=== PATIENT | male | born 1965 | race Caucasian/White ===

== ENCOUNTER → 2017-12-27 12:46 | Outpatient (CLI) | payer OTHER, SELFPAY ==
--- NOTE | 2017-12-27 12:56 | PCM.CR.ITP ---
Exercise - Initial Assessment - Visit Date of Eval: 12/27/17 - Stages of Change Stages of Change:: Contemplate - Exercise Prescription Mode:: Treadmill, Biodyne, Airdyne, NuStep, Arm Ergometer - Angina with exercise?: No - Hypertension Do any of the following apply?: Yes Resting Blood Pressure:: 160/90 - Education Goals:: Warm-up, RPE ISABELL Scale, S/S, Safe Exercise, Self-Monitoring - Exercise Program Goals Exercise Program Goals: Aerobic Activity >30 min, B/P <140/90 Nutrition - Initial Assessment - Program Goals Nutrition Program Goals: LDL <70. Total Cholesterol <200. HDL >45. Triglycerides <150. HgbA1C <7%. BMI <25 - Visit Date of Assessment:: 12/27/17 - Stages of Change Stages of Change:: Contemplate - Diabetes Diabetes:: No Insulin: No Non-Insulin Dependent?: No Do you monitor your blood sugar at home?: No - Weight Management Height: 1.73 m Weight:: 87.997 kg Total Score:: 2 - Intervention Referral to dietitian:: No Referral to Diabetic Clinic:: No Will attend diet classes:: Yes - Education Gave educational materials for:: Signs & symptoms of hypoglycemia, Signs & symptoms of hyperglycemia, Relate diabetes to coronary artery disease, Healthy eating Tobacco - Initial Assessment - Program Goals Tobacco Program Goals: Complete smoking cessation. Attend education classes. Improve Knowledge Test score - Stage of Change Stages of Change:: Contemplate - Learning Barriers Learning Barriers: Hearing, Vision Total Score:: 8 - Family Support Do you have family support?: Yes - Tobacco Use Tobacco Use: Non-smoker Do you use smokeless tobacco?: No - Intervention Smoking Cessation Referral:: No Individual Education/Counseling:: No Education Schedule Given:: Yes - Education Gave educational material for:: Tobacco triggers, Coronary artery disease, Risk factors, Sexuality, Medical compliance, Cardiac A&P, Angina signs & symptoms Psychosocial - Initial Assess - Target Goals Target Goals: Assess presence or absence of depression. Using a valid screening tool, maximizes coping skills. Positive support system - Stages of Change Stages of Change:: Contemplate - Psychosocial Test Tool Used:: HANDS Depression Questionnaire Tests Completed: SF - 36 survey completed, Mood Scale Test Total Mood Screening Score:: 0 Self-Efficacy Score:: 10 - Intervention PS - Interventions: Yes Attend Stress Management Classes, Yes Uses Stress Management Skills, No Referral to Mental Health, No Referral to [facility] Case Management, No Referral to Physician - Education Gave educational materials for:: Coping techniques, Signs & symptoms of depression, Stress management, Relaxation techniques - Assistive Devices Assistive Devices:: None Fall Risk Assessed:: Yes Patient Health Questionnaire Initial Assessment 1. Little interest or pleasure in doing things: Not at all 2. Feeling down, depressed, or hopeless: Not at all 3. Trouble falling or staying asleep, or sleeping too much: Not at all 4. Feeling tired or having little energy: Not at all 5. Poor appetite or overeating: Not at all 6. Feeling bad about yourself -- or that you are a failure or have let yourself or your family down: Not at all 7. Trouble concentrating on things, such as reading the newspaper or watching television: Not at all 8. Moving or speaking so slowly that other people could have noticed. Or the opposite - being so fidgety or restless that you have been moving around a lot more than usual: Not at all 9. Thoughts that you would be better off , or of hurting yourself in some way: Not at all How difficult have these problems made it for you to do your work, take care of things at home, or get along with other people?: Not difficult at all Total Score: 0 Knowledge Test - Check your knowledge Initial The #1 cause of in the [place] each year is:: Heart disease Which of the following is a common treatment for heart disease?: All of the above The arteries that feed the heart are called:: Coronary arteries HDL cholesterol is known as the good cholesterol.: True What disease increases your risk for heart disease?: Pneumonia What food product raises blood cholesterol level the most?: Saturated fat The bad cholesterol in the blood is called:: LDL Hypertension is another word for:: High blood pressure A blood pressure reading of 148/88 is considered normal.: False Exercise will only benefit your health when your heart rate reaches a target level.: True Total Score:: 8 Self-Efficacy Initial Assessment We would like to know how confident you are in doing certain activities. Please select your confidence level for:: Select your confidence level for the following using the scale 1-10 where 1 is not at all confident and 10 is totally confident. Your score is the average of all 6 responses. Fatigue: How confident are you that you can keep the fatigue caused by your disease from interfering with the things you want to do? Select Number: 10 Physical Discomfort or Pain: How confident are you that you can keep the physical discomfort or pain of your disease from interfering with the things you want to do? Select Number: 10 Emotional Distress: How confident are you that you can keep the emotional distress caused by your disease from interfering with the things you want to do? Select Number: 10 Other Symptoms or Health Problems: How confident are you that you can keep other symptoms or health problems from interfering with the things you want to do? Select Number: 10 Different Tasks and Activities: How confident are you that you can do the different tasks and activities needed to manage your health condition so as to reduce your need to see a doctor? Select Number: 10 Medication: How confident are you that you can do things other than just taking medication to reduce how much your illness affects your everyday life? Select Number: 10 Total Score:: 10 Nutrition Survey - Nutrition Survey Instructions Scoring Instructions: Scoring is as follows: Yes = 1 points. No = 0 point. Patient score that is >/=12 is considered to be at potential nutritional risk and could benefit from a referral to a registered dietitian. - Nutrition Survey Initial Have you lost >10 lbs over the past 2 months without trying?: Yes Are you following a special diet at home for diabetes, low fat, or low salt?: Yes Are you interested in meeting with a dietitian for help understanding your diet?: No Do you eat less than 3 meals a day?: No Do you eat fatty meats (lara, sausage, ribs, etc), fried foods, desserts, large amounts of salad dressings, margarine, butter, or cheese most days?: No Do you have food allergies? [Enter types in comment field]: No Do you eat in restaurants more than 3 times a week?: No Do you season food with salt, seasoning salt, or garlic salt?: No Do you used canned, boxed, frozen meals, or soups, seasoning packets?: No Total Score:: 2 Cardiac Rehabilitation Goals - Cardiac Rehab Goals Cardiac Rehabilitation Goals: 1. Maintain the individual as the primary focus of care. 2. To improve the patient's quality of life. 3. Identification of cardiac risk factors and provide cardiac risk factor management. 4. Enhance the psychosocial status of the patient. 5. Reconditioning enough to allow the patient to resume customary activities. 6. Control symptoms of cardiac disease - Scale Scale for measuring improvement of personal goals: Enter appropriate number in Comments. 2 = Unchanged. 3 = Slightly Better. 4 = Moderate Improvement. 5 = Met my Goal Initial Assessment Personal Goals: 30-day Re-assessment: Improve energy level, Participate in home exercise program, Get back to work, or to resume activities faster, Improve knowledge of cardiac disease, Improve muscle strength and endurance, Improve diet and eating habits (eat healthier), Control risk factors (learn risk factor modification)
--- NOTE | 2017-12-27 13:07 | CR.HP_ITS ---
CR - History & Physical - General Arrival date:: 12/27/17 Arrival time:: 12:57 Referring Physician: Dr. Kike Rivera Primary Diagnosis: Z98.890 11/02/2017 - History of Present Cardiac Event Onset Date: Enter Onset Date of cardiac illnesses in Comment field below Valve Replacement/Repair:: Yes Interventions with present event:: Mitral, Tricuspid valve repair and a left atrial appendage exclusion - Medications Home Medications: Ambulatory Orders Medication Instructions Recorded acetaminophen 325 mg tablet 650 mg PO Q4H PRN 12/19/17 aspirin 81 mg tablet,delayed 81 mg PO QDAY 12/19/17 release carvedilol 12.5 mg tablet 12.5 mg PO BID 12/19/17 furosemide 20 mg tablet 20 mg PO .every other day PRN tab 12/19/17 lisinopril 10 mg tablet 10 mg PO QDAY 12/19/17 potassium chloride ER 20 mEq 20 meq PO QDAY tab 12/19/17 tablet,extended release - Allergies Allergies/Adverse Reactions: Allergies No Known Allergies Allergy (Verified 10/25/17 18:15) - Sleep Disorder Evaluation Hx of Sleep Apnea: No Do you snore loudly (louder than talking or can be heard through closed doors)? 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 Left click = Reports (Ashley) Review of Present Symptoms: Reports: Shortness of Breath at Rest, Shortness of Breath with Exertion, Dizziness/Lightheadedness, Fatigue, Appetite - Normal, Appetite - Special Diet. Denies: PVD, Operative Discomfort, Angina, Wound Healing, Heart Arrhythmia/Irregularities, Sleep - Normal, Sexual Changes Risk Factor Assessment - Chief Complaint Chief Complaint: SOB - Pulse Pulse Rhythm: Regular - Hypertension How long have you been treated?: 1 month Blood Pressure Sitting - Right Arm: 160/90 - Diabetes Nutrition Referral for Diabetes: No - Obesity Height: 1.73 m Weight:: 87.997 kg Weight in Pounds: 194.0 lbs Body Mass Index (BMI): 29.5 Nutritional Referral for Obesity: No - Physical Inactivity Physical Inactivity: Reg Exercise 30 min/day - Risk Stratification Risk Guidelines: Lowest Risk: Risk Factor for Smoking, Risk Factor for Dyslipidemia, Risk Factor for Diabetes, Risk Factor for Obesity, Risk Factor for Sedentary Lifestyle, Risk Factor for Depression, Moderate Risk: Risk Factor for Hypertension - For Smoking Smoking Risk Guidelines: Smoking Low Risk: None or quit greater than 6 months ago. Smoking Moderate Risk: Smoker or quit 6 months or less ago. Smoking High Risk: Smoker - For Dyslipidemia Dyslipidemia Risk Guidelines: Low Risk: Moderate Risk: High Risk: 15-25% fat 25.1-29% fat >/= 30% fat. <7% sat fat 7-9% sat fat >9% sat fat. <150 mg chol 150-299 mg chol >/= 300 mg chol. LDL <100 LDL 100-129 LDL >/= 130. Chol/HDL ratio <5.0 Chol/HDL ratio 5.0-6.0 Chol/HDL ratio >6.0. Triglycerides <100 Triglycerides 100-149 Triglycerides >/= 150 - For Diabetes Mellitus Diabetes Risk Guidelines: Diabetes Low Risk: HgA1c <6.5% and/or FBG <120. Diabetes Moderate Risk: HgA1c 6.6-7.9% and/or FBG 120-180. Diabetes High Risk: HgA1c >/= 8% and/or FBG >180 - For Obesity/Overweight Obesity/Overweight Risk Guidelines: Obesity Low Risk: BMI <25.0. Obesity Moderate Risk: BMI 25-29.9. Obesity High Risk: BMI >/= 30.0 - For Hypertension Hypertension Risk Guidelines: Hypertension Low Risk: Systolic <120 and Diastolic <80. Hypertension Moderate Risk: Systolic 120-139 and Diastolic 80-89. Hypertension High Risk: Systolic >/= 140 and Diastolic >/= 90 - For Sedentary Lifestyle Sedentary Lifestyle Risk Guidelines: Sedentary Lifestyle Low Risk: >/= 1 ,500 kcal/week. Sedentary Lifestyle Moderate Risk: 700-1,499 kcal/week. Sedentary Lifestyle High Risk: < 700 kcal/week - For Depression Depression Risk Guidelines: Depression Low Risk: Not clinically depressed. Depression Moderate Risk: Mildly depressed. Depression High Risk: Clinically depressed - Family History Family History: Family History (Last Updated 12/19/17 @ 13:55 by Suhail Warren NP-C) Mother Diabetes Atrial fibrillation Father Hypertension Brother Hypertension Social History - Smoking History Smoking Status: Never smoker Hx Tobacco Use: No Hx Smoking Exposure: No - Alcohol Use Alcohol Usage: No - Substance Abuse Hx Substance Use: No - Occupation Occupation (List type of work in comments):: Employed - [employer] Hours worked per day:: 8 - Hobbies, Recreation, Social Activities Hobbies: Other - painting, writing, yard work Recreational Activities: I am able to engage in all my recreational activities Marital Status - Status Marital Status: - Current Living Arrangements Living Environment:: Family - Children How many children do you have?: 3 Do any of your children live nearby?: Yes - Safety Do you feel safe in your surroundings?: Yes - Assistance Do you need any assistance at home?: no
[2017-12-27 13:55] VITALS: BP 160/90; BMI 29.5
== END ==
PROVIDERS: Visit Provider Internal Medicine Cardiovascular Disease
DX: Z98.890 Other specified postprocedural states (principal); R06.02 Shortness of breath; R42 Dizziness and giddiness; R53.83 Other fatigue; I10 Essential (primary) hypertension; H91.92 Unspecified hearing loss, left ear; Z79.82 Long term (current) use of aspirin; Z79.899 Other long term (current) drug therapy

== ENCOUNTER 2018-01-17 13:00 | Outpatient (RCR) | payer OTHER, SELFPAY ==
[2017-12-27 13:55] VITALS: BMI 29.5
[2018-01-16 13:18] VITALS: BP 148/84; BP 210/120
--- NOTE | 2018-01-16 13:19 | CR.ITP_ITS ---
Exercise - Initial Assessment - Stages of Change Stages of Change:: Contemplate - Exercise Prescription Mode:: Treadmill, Biodyne, Airdyne, NuStep, Arm Ergometer - Angina with exercise?: No - Hypertension Do any of the following apply?: Yes - Education Goals:: Warm-up, RPE ISABELL Scale, S/S, Safe Exercise, Self-Monitoring - Exercise Program Goals Exercise Program Goals: Aerobic Activity >30 min, B/P <140/90 Exercise - 30-day Assessment - Visit Date of Eval: 01/16/18 Session #:: 8 - Stages of Change Stages of Change:: Action - Exercise Prescription Mode:: Treadmill, Airdyne, NuStep Frequency (x/week): 3 Duration:: 30 METs - Progression: 0.5-1 MET as tolerated: 3.8 Target Heart Rate:: 125-133 max HR 95 - Hypertension Resting Blood Pressure:: 148/84 Peak Exercise Blood Pressure:: 210/120 Medication Changes:: Yes - 01/12 Lisinopril 40/HCTZ 25 started - Intervention Home Exercise/Activity Goal:: Moderate Exercise 30 min/day x 5 days/wk - Education Goals:: Warm-up, RPE ISABELL Scale, S/S, Safe Exercise, Self-Monitoring - Exercise Program Goals Exercise Program Goals: Aerobic Activity >30 min Exercise - Final/Discharge - Hypertension Do any of the following apply?: Yes Nutrition - Initial Assessment - Program Goals Nutrition Program Goals: LDL <70. Total Cholesterol <200. HDL >45. Triglycerides <150. HgbA1C <7%. BMI <25 - Stages of Change Stages of Change:: Contemplate - Diabetes Diabetes:: No Non-Insulin Dependent?: No Do you monitor your blood sugar at home?: No - Weight Management Total Score:: 2 - Intervention Referral to dietitian:: No Referral to Diabetic Clinic:: No Will attend diet classes:: Yes - Education Gave educational materials for:: Signs & symptoms of hypoglycemia, Signs & symptoms of hyperglycemia, Relate diabetes to coronary artery disease, Healthy eating Nutrition - 30-Day Assessment - Program Goals Nutrition Program Goals: LDL <70. Total Cholesterol <200. HDL >45. Triglycerides <150. HgbA1C <7%. BMI <25 - Visit Date of Eval: 01/16/18 - Stages of Change Stages of Change:: Action - Lipids Has the patient seen the dietitian?: No - Diabetes Diabetes:: No Insulin: No Non-Insulin Dependent?: No - Weight Management Weight:: 172 lb - Intervention Referral to dietitian:: No Referral to Diabetic Clinic:: No Will attend diet classes:: Yes - Education Attended class for:: Signs & symptoms of hypoglycemia, Signs & symptoms of hyperglycemia, Relate diabetes to coronary artery disease, Healthy eating Nutrition - 60-Day Assessment - Program Goals Nutrition Program Goals: LDL <70. Total Cholesterol <200. HDL >45. Triglycerides <150. HgbA1C <7%. BMI <25 - Diabetes Diabetes:: No Insulin: No Non-Insulin Dependent?: No - Intervention Referral to dietitian:: No Referral to Diabetic Clinic:: No Will attend diet classes:: Yes - Education Attended class for:: Signs & symptoms of hypoglycemia, Signs & symptoms of hyperglycemia, Relate diabetes to coronary artery disease, Healthy eating Nutrition - 90-Day Assessment - Program Goals Nutrition Program Goals: LDL <70. Total Cholesterol <200. HDL >45. Triglycerides <150. HgbA1C <7%. BMI <25 - Diabetes Diabetes:: No Insulin: No Non-Insulin Dependent?: No - Intervention Referral to dietitian:: No Referral to Diabetic Clinic:: No Will attend diet classes:: Yes - Education Attended class for:: Signs & symptoms of hypoglycemia, Signs & symptoms of hyperglycemia, Relate diabetes to coronary artery disease, Healthy eating Nutrition - Final Assessment - Program Goals Nutrition Program Goals: LDL <70. Total Cholesterol <200. HDL >45. Triglycerides <150. HgbA1C <7%. BMI <25 - Diabetes Diabetes:: No Insulin: No Non-Insulin Dependent?: No - Weight Management Total Score:: 2 - Intervention Referral to dietitian:: No Referral to Diabetic Clinic:: No Will attend diet classes:: Yes Tobacco - Initial Assessment - Program Goals Tobacco Program Goals: Complete smoking cessation. Attend education classes. Improve Knowledge Test score - Stage of Change Stages of Change:: Contemplate - Learning Barriers Learning Barriers: Hearing, Vision Total Score:: 8 - Family Support Do you have family support?: Yes - Tobacco Use Tobacco Use: Non-smoker Do you use smokeless tobacco?: No - Intervention Smoking Cessation Referral:: No Individual Education/Counseling:: No Education Schedule Given:: Yes - Education Gave educational material for:: Tobacco triggers, Coronary artery disease, Risk factors, Sexuality, Medical compliance, Cardiac A&P, Angina signs & symptoms Tobacco - 30-Day Assessment - Program Goals Tobacco Program Goals: Complete smoking cessation. Attend education classes. Improve Knowledge Test score - Stage of Change Stages of Change:: Action - Learning Barriers Learning Barriers: Participates in education - Family Support Do you have family support?: Yes - Tobacco Use Tobacco Use: Non-smoker Do you use smokeless tobacco?: No - Intervention Smoking Cessation Referral:: No Individual Education/Counseling:: No Education Schedule Given:: Yes - Education Attended class for:: Coronary artery disease, Risk factors, Sexuality, Medical compliance, Cardiac A&P, Angina signs & symptoms Tobacco - 60-Day Assessment - Program Goals Tobacco Program Goals: Complete smoking cessation. Attend education classes. Improve Knowledge Test score - Family Support Do you have family support?: Yes - Tobacco Use Do you use smokeless tobacco?: No - Intervention Smoking Cessation Referral:: No Individual Education/Counseling:: No Education Schedule Given:: Yes - Education Attended class for:: Tobacco triggers, Coronary artery disease, Risk factors, Sexuality, Medical compliance, Cardiac A&P, Angina signs & symptoms Tobacco - 90-Day Assessment - Program Goals Tobacco Program Goals: Complete smoking cessation. Attend education classes. Improve Knowledge Test score - Family Support Do you have family support?: Yes - Tobacco Use Do you use smokeless tobacco?: No - Intervention Smoking Cessation Referral:: No Individual Education/Counseling:: No Education Schedule Given:: Yes - Education Attended class for:: Tobacco triggers, Coronary artery disease, Risk factors, Sexuality, Medical compliance, Cardiac A&P, Angina signs & symptoms Tobacco - Final Assessment - Program Goals Tobacco Program Goals: Complete smoking cessation. Attend education classes. Improve Knowledge Test score - Learning Barriers Cardiac Knowledge Test Score:: 8 - Family Support Do you have family support?: Yes - Tobacco Use Do you use smokeless tobacco?: No - Intervention Smoking Cessation Referral:: No Individual Education/Counseling:: No Education Schedule Given:: Yes Psychosocial - Initial Assess - Target Goals Target Goals: Assess presence or absence of depression. Using a valid screening tool, maximizes coping skills. Positive support system - Stages of Change Stages of Change:: Contemplate - Psychosocial Test Tool Used:: HANDS Depression Questionnaire Tests Completed: SF - 36 survey completed, Mood Scale Test Total Mood Screening Score:: 0 Self-Efficacy Score:: 10 - Intervention PS - Interventions: Yes Attend Stress Management Classes, Yes Uses Stress Management Skills, No Referral to Mental Health, No Referral to [facility] Case Management, No Referral to Physician - Education Gave educational materials for:: Coping techniques, Signs & symptoms of depression, Stress management, Relaxation techniques - Assistive Devices Assistive Devices:: None Fall Risk Assessed:: Yes Psychosocial - 30-Day Assess - Target Goals Target Goals: Assess presence or absence of depression. Using a valid screening tool, maximizes coping skills. Positive support system - Psychosocial Test Tool Used:: HANDS Depression Questionnaire Total Mood Screening Score:: 0 Self-Efficacy Score:: 10 - Intervention PS - Interventions: Yes Attend Stress Management Classes, Yes Uses Stress Management Skills, No Referral to Mental Health, No Referral to [facility] Case Management, No Referral to Physician - Education Attended classes for:: Coping techniques, Signs & symptoms of depression, Stress management, Relaxation techniques - Patient/Program Goal Preventative Medication(s):: Aspirin - Assistive Devices Assistive Devices:: None Fall Risk Assessed:: Yes Psychosocial - 60-Day Assess - Target Goals Target Goals: Assess presence or absence of depression. Using a valid screening tool, maximizes coping skills. Positive support system - Psychosocial Test Tool Used:: HANDS Depression Questionnaire Total Mood Screening Score:: 0 Self-Efficacy Score:: 10 - Education Attended classes for:: Coping techniques, Signs & symptoms of depression, Stress management, Relaxation techniques - Assistive Devices Assistive Devices:: None Fall Risk Assessed:: Yes Psychosocial - 90-Day Assess - Target Goals Target Goals: Assess presence or absence of depression. Using a valid screening tool, maximizes coping skills. Positive support system - Psychosocial Test Tool Used:: HANDS Depression Questionnaire Total Mood Screening Score:: 0 Self-Efficacy Score:: 10 - Education Attended classes for:: Coping techniques, Signs & symptoms of depression, Stress management, Relaxation techniques - Assistive Devices Assistive Devices:: None Fall Risk Assessed:: Yes Psychosocial - Final Assessmen - Target Goals Target Goals: Assess presence or absence of depression. Using a valid screening tool, maximizes coping skills. Positive support system - Psychosocial Test Tool Used:: HANDS Depression Questionnaire Tests Completed: SF - 36 survey completed, Mood Scale Test Total Mood Screening Score:: 0 Self-Efficacy Score:: 10 - Assistive Devices Assistive Devices:: None Fall Risk Assessed:: Yes Patient Health Questionnaire 30-Day Re-eval Assessment 1. Little interest or pleasure in doing things: Not at all 2. Feeling down, depressed, or hopeless: Not at all 3. Trouble falling or staying asleep, or sleeping too much: Not at all 4. Feeling tired or having little energy: Not at all 5. Poor appetite or overeating: Not at all 6. Feeling bad about yourself -- or that you are a failure or have let yourself or your family down: Not at all 7. Trouble concentrating on things, such as reading the newspaper or watching television: Not at all 8. Moving or speaking so slowly that other people could have noticed. Or the opposite - being so fidgety or restless that you have been moving around a lot more than usual: Not at all 9. Thoughts that you would be better off , or of hurting yourself in some way: Not at all Total Score: 0 Self-Efficacy 30-Day Re-eval Assessment We would like to know how confident you are in doing certain activities. Please select your confidence level for:: Select your confidence level for the following using the scale 1-10 where 1 is not at all confident and 10 is totally confident. Your score is the average of all 6 responses. Fatigue: How confident are you that you can keep the fatigue caused by your disease from interfering with the things you want to do? Select Number: 10 Physical Discomfort or Pain: How confident are you that you can keep the physical discomfort or pain of your disease from interfering with the things you want to do? Select Number: 10 Emotional Distress: How confident are you that you can keep the emotional distress caused by your disease from interfering with the things you want to do? Select Number: 10 Other Symptoms or Health Problems: How confident are you that you can keep other symptoms or health problems from interfering with the things you want to do? Select Number: 10 Different Tasks and Activities: How confident are you that you can do the different tasks and activities needed to manage your health condition so as to reduce your need to see a doctor? Select Number: 10 Medication: How confident are you that you can do things other than just taking medication to reduce how much your illness affects your everyday life? Select Number: 10 Total Score:: 10
== END 2018-01-17 23:59 ==
LOC: CR 13:00
PROVIDERS: Visit Provider Internal Medicine Cardiovascular Disease
DX: I36.1 Nonrheumatic tricuspid (valve) insufficiency (principal); I34.0 Nonrheumatic mitral (valve) insufficiency; I34.1 Nonrheumatic mitral (valve) prolapse; Z98.890 Other specified postprocedural states
CPT/HCPCS: 93798

== ENCOUNTER → 2018-01-19 14:10 | Outpatient (CLI) | payer OTHER, SELFPAY ==
[2018-01-19 15:51] LABS: Anion Gap 6 (5-15); BUN 20 mg/dL (7-18); BUN/Creat Ratio 22.2 RATIO (10-20); Calcium,Total 9.5 mg/dL (8.5-10.1); Chloride 100 mmol/L (98-107); EST Glomerular Filtration Rate 94 mL/min (>60); Est Glom Filt Rate - Afr Amer 113 mL/min (>60); Glucose 95 mg/dL (74-106); Potassium 3.8 mmol/L (3.5-5.1); Sodium Level 139 mmol/L (136-145)
== END ==
PROVIDERS: Visit Provider Nurse Practitioner Family
DX: R33.9 Retention of urine, unspecified (principal); I36.1 Nonrheumatic tricuspid (valve) insufficiency; I34.0 Nonrheumatic mitral (valve) insufficiency; Z98.890 Other specified postprocedural states; R06.02 Shortness of breath; J81.1 Chronic pulmonary edema; I34.1 Nonrheumatic mitral (valve) prolapse
CPT/HCPCS: 36415; 80048

== ENCOUNTER → 2018-01-29 16:31 | Outpatient (CLI) | payer OTHER, SELFPAY ==
--- NOTE | 2018-01-29 16:35 | RAD_ITS ---
STUDY: X-RAY - RIGHT FOOT CLINICAL: Male, 52 years old. Right-sided foot pain. TECHNIQUE: 3 view(s) of the foot. COMPARISON: None. FINDINGS: There is a plantar calcaneal spur. There may be a posterior calcaneal enthesophyte in addition to what may represent a calcific tendinopathy of the distal Achilles tendon. There are degenerative changes of the intertarsal articulations. There is pes cavus. Normal metatarsi. There is degenerative arthrosis of the metatarsophalangeal joint of the hallux . Normal tibial and fibular sesamoid bones. There is lucency within the proximal aspect of the distal phalanx of the hallux. This may be the result of previous fracture. There are degenerative changes of the IP joint. The proximal phalanx of the hallux is within normal limits. Normal second through fifth metatarsophalangeal joints. Normal interphalangeal joints and phalanges of the lesser toes. There is soft tissue swelling. RAD/Foot min 3 Views IMPRESSION: 1. Calcaneal spurs. 2. Possible calcific tendinopathy. 3. Degenerative arthropathy of the midfoot and hallux. Electronically Signed: Ava Arguello MD at 8:27 EDT , Service support ,
== END ==
PROVIDERS: Visit Provider Physician Assistant Surgical
DX: M79.674 Pain in right toe(s) (principal)
CPT/HCPCS: 73630

== ENCOUNTER 2018-02-16 13:00 | Outpatient (RCR) | payer OTHER, SELFPAY ==
[2018-01-18 01:06] VITALS: BP 148/84; BP 210/120; BMI 29.5
[2018-02-12 10:52] VITALS: BP 144/80; BP 188/104
--- NOTE | 2018-02-12 10:52 | CR.ITP_ITS ---
Exercise - Initial Assessment - Stages of Change Stages of Change:: Contemplate - Exercise Prescription Mode:: Treadmill, Biodyne, Airdyne, NuStep, Arm Ergometer - Angina with exercise?: No - Hypertension Do any of the following apply?: Yes - Education Goals:: Warm-up, RPE ISABELL Scale, S/S, Safe Exercise, Self-Monitoring - Exercise Program Goals Exercise Program Goals: Aerobic Activity >30 min, B/P <140/90 Exercise - 30-day Assessment - Visit Date of Eval: 01/16/18 - Stages of Change Stages of Change:: Action - Exercise Prescription Mode:: Treadmill, Airdyne, NuStep Frequency (x/week): 3 Duration:: 30 METs - Progression: 0.5-1 MET as tolerated: 3.8 Target Heart Rate:: 125-133 max HR 95 - Intervention Home Exercise/Activity Goal:: Moderate Exercise 30 min/day x 5 days/wk - Education Goals:: Warm-up, RPE ISABELL Scale, S/S, Safe Exercise, Self-Monitoring - Exercise Program Goals Exercise Program Goals: Aerobic Activity >30 min Exercise - 60-Day Assessment - Visit Date of Eval: 02/12/18 - 01/12/2018-02/09/2018 Session #:: 18 - Stages of Change Stages of Change:: Action - Exercise Prescription Mode:: Treadmill, Rower, Airdyne, NuStep Frequency (x/week): 3 Duration:: 30 METs: 3.8 Target Heart Rate:: 125-133 Max HR 99 - Hypertension Resting Blood Pressure:: 144/80 Peak Exercise Blood Pressure:: 188/104 - Intervention Home Exercise/Activity Goal:: Sitting Time <3 hrs/day - Education Goals:: Warm-up, RPE ISABELL Scale, S/S, Safe Exercise, Self-Monitoring - Exercise Program Goals Exercise Program Goals: Aerobic Activity >30 min, B/P <140/90 Exercise - Final/Discharge - Hypertension Do any of the following apply?: Yes Nutrition - Initial Assessment - Program Goals Nutrition Program Goals: LDL <70. Total Cholesterol <200. HDL >45. Triglycerides <150. HgbA1C <7%. BMI <25 - Stages of Change Stages of Change:: Contemplate - Diabetes Diabetes:: No Non-Insulin Dependent?: No Do you monitor your blood sugar at home?: No - Weight Management Total Score:: 2 - Intervention Referral to dietitian:: No Referral to Diabetic Clinic:: No Will attend diet classes:: Yes - Education Gave educational materials for:: Signs & symptoms of hypoglycemia, Signs & symptoms of hyperglycemia, Relate diabetes to coronary artery disease, Healthy eating Nutrition - 30-Day Assessment - Program Goals Nutrition Program Goals: LDL <70. Total Cholesterol <200. HDL >45. Triglycerides <150. HgbA1C <7%. BMI <25 - Stages of Change Stages of Change:: Action - Lipids Has the patient seen the dietitian?: No - Diabetes Diabetes:: No Insulin: No Non-Insulin Dependent?: No - Intervention Referral to dietitian:: No Referral to Diabetic Clinic:: No Will attend diet classes:: Yes - Education Attended class for:: Signs & symptoms of hypoglycemia, Signs & symptoms of hyperglycemia, Relate diabetes to coronary artery disease, Healthy eating Nutrition - 60-Day Assessment - Program Goals Nutrition Program Goals: LDL <70. Total Cholesterol <200. HDL >45. Triglycerides <150. HgbA1C <7%. BMI <25 - Visit Date of Eval: 02/12/18 - 01/12/2018-02/09/2018 - Stages of Change Stages of Change:: Action - Lipids Has the patient seen the dietitian?: No - Diabetes Diabetes:: No Insulin: No Non-Insulin Dependent?: No - Weight Management Weight:: 78.471 kg - Intervention Referral to dietitian:: No Referral to Diabetic Clinic:: No Will attend diet classes:: Yes - Education Attended class for:: Signs & symptoms of hypoglycemia, Signs & symptoms of hyperglycemia, Relate diabetes to coronary artery disease, Healthy eating Nutrition - 90-Day Assessment - Program Goals Nutrition Program Goals: LDL <70. Total Cholesterol <200. HDL >45. Triglycerides <150. HgbA1C <7%. BMI <25 - Lipids Has the patient seen the dietitian?: No - Diabetes Diabetes:: No Insulin: No Non-Insulin Dependent?: No - Intervention Referral to dietitian:: No Referral to Diabetic Clinic:: No Will attend diet classes:: Yes - Education Attended class for:: Signs & symptoms of hypoglycemia, Signs & symptoms of hyperglycemia, Relate diabetes to coronary artery disease, Healthy eating Nutrition - Final Assessment - Program Goals Nutrition Program Goals: LDL <70. Total Cholesterol <200. HDL >45. Triglycerides <150. HgbA1C <7%. BMI <25 - Diabetes Diabetes:: No Insulin: No Non-Insulin Dependent?: No - Weight Management Total Score:: 2 - Intervention Referral to dietitian:: No Referral to Diabetic Clinic:: No Will attend diet classes:: Yes Tobacco - Initial Assessment - Program Goals Tobacco Program Goals: Complete smoking cessation. Attend education classes. Improve Knowledge Test score - Stage of Change Stages of Change:: Contemplate - Learning Barriers Learning Barriers: Hearing, Vision Total Score:: 8 - Family Support Do you have family support?: Yes - Tobacco Use Tobacco Use: Non-smoker Do you use smokeless tobacco?: No - Intervention Smoking Cessation Referral:: No Individual Education/Counseling:: No Education Schedule Given:: Yes - Education Gave educational material for:: Tobacco triggers, Coronary artery disease, Risk factors, Sexuality, Medical compliance, Cardiac A&P, Angina signs & symptoms Tobacco - 30-Day Assessment - Program Goals Tobacco Program Goals: Complete smoking cessation. Attend education classes. Improve Knowledge Test score - Stage of Change Stages of Change:: Action - Learning Barriers Learning Barriers: Participates in education - Family Support Do you have family support?: Yes - Tobacco Use Tobacco Use: Non-smoker Do you use smokeless tobacco?: No - Intervention Smoking Cessation Referral:: No Individual Education/Counseling:: No Education Schedule Given:: Yes - Education Attended class for:: Tobacco triggers, Coronary artery disease, Risk factors, Sexuality, Medical compliance, Cardiac A&P, Angina signs & symptoms Tobacco - 60-Day Assessment - Program Goals Tobacco Program Goals: Complete smoking cessation. Attend education classes. Improve Knowledge Test score - Stage of Change Stages of Change:: Action - Learning Barriers Learning Barriers: Participates in education - Family Support Do you have family support?: Yes - Tobacco Use Tobacco Use: Non-smoker Do you use smokeless tobacco?: No - Intervention Smoking Cessation Referral:: No Individual Education/Counseling:: No Education Schedule Given:: Yes - Education Attended class for:: Tobacco triggers, Coronary artery disease, Risk factors, Sexuality, Medical compliance, Cardiac A&P, Angina signs & symptoms Tobacco - 90-Day Assessment - Program Goals Tobacco Program Goals: Complete smoking cessation. Attend education classes. Improve Knowledge Test score - Family Support Do you have family support?: Yes - Tobacco Use Tobacco Use: Non-smoker Do you use smokeless tobacco?: No - Intervention Smoking Cessation Referral:: No Individual Education/Counseling:: No Education Schedule Given:: Yes - Education Attended class for:: Tobacco triggers, Coronary artery disease, Risk factors, Sexuality, Medical compliance, Cardiac A&P, Angina signs & symptoms Tobacco - Final Assessment - Program Goals Tobacco Program Goals: Complete smoking cessation. Attend education classes. Improve Knowledge Test score - Learning Barriers Cardiac Knowledge Test Score:: 8 - Family Support Do you have family support?: Yes - Tobacco Use Tobacco Use: Non-smoker Do you use smokeless tobacco?: No - Intervention Smoking Cessation Referral:: No Individual Education/Counseling:: No Education Schedule Given:: Yes Psychosocial - Initial Assess - Target Goals Target Goals: Assess presence or absence of depression. Using a valid screening tool, maximizes coping skills. Positive support system - Stages of Change Stages of Change:: Contemplate - Psychosocial Test Tool Used:: HANDS Depression Questionnaire Tests Completed: SF - 36 survey completed, Mood Scale Test Total Mood Screening Score:: 0 Self-Efficacy Score:: 10 - Intervention PS - Interventions: Yes Attend Stress Management Classes, Yes Uses Stress Management Skills, No Referral to Mental Health, No Referral to [facility] Case Management, No Referral to Physician - Education Gave educational materials for:: Coping techniques, Signs & symptoms of depression, Stress management, Relaxation techniques - Patient/Program Goal Preventative Medication(s):: Aspirin - Assistive Devices Assistive Devices:: None Fall Risk Assessed:: Yes Psychosocial - 30-Day Assess - Target Goals Target Goals: Assess presence or absence of depression. Using a valid screening tool, maximizes coping skills. Positive support system - Psychosocial Test Tool Used:: HANDS Depression Questionnaire Total Mood Screening Score:: 0 Self-Efficacy Score:: 10 - Patient/Program Goal Preventative Medication(s):: Aspirin - Assistive Devices Assistive Devices:: None Fall Risk Assessed:: Yes Psychosocial - 60-Day Assess - Target Goals Target Goals: Assess presence or absence of depression. Using a valid screening tool, maximizes coping skills. Positive support system - Stages of Change Stages of Change:: Action - Psychosocial Test Tool Used:: HANDS Depression Questionnaire Total Mood Screening Score:: 0 Self-Efficacy Score:: 10 - Intervention PS - Interventions: Yes Attend Stress Management Classes, Yes Uses Stress Management Skills, No Referral to Mental Health, No Referral to [facility] Case Management, No Referral to Physician - Education Attended classes for:: Coping techniques, Signs & symptoms of depression, Stress management, Relaxation techniques - Patient/Program Goal Preventative Medication(s):: Aspirin - Assistive Devices Assistive Devices:: None Fall Risk Assessed:: Yes Psychosocial - 90-Day Assess - Target Goals Target Goals: Assess presence or absence of depression. Using a valid screening tool, maximizes coping skills. Positive support system - Psychosocial Test Tool Used:: HANDS Depression Questionnaire Total Mood Screening Score:: 0 Self-Efficacy Score:: 10 - Education Attended classes for:: Coping techniques, Signs & symptoms of depression, Stress management, Relaxation techniques - Patient/Program Goal Preventative Medication(s):: Aspirin - Assistive Devices Assistive Devices:: None Fall Risk Assessed:: Yes Psychosocial - Final Assessmen - Target Goals Target Goals: Assess presence or absence of depression. Using a valid screening tool, maximizes coping skills. Positive support system - Psychosocial Test Tool Used:: HANDS Depression Questionnaire Tests Completed: SF - 36 survey completed, Mood Scale Test Total Mood Screening Score:: 0 Self-Efficacy Score:: 10 - Patient/Program Goal Preventative Medication(s):: Aspirin - Assistive Devices Assistive Devices:: None Fall Risk Assessed:: Yes Patient Health Questionnaire 60-Day Re-eval Assessment 1. Little interest or pleasure in doing things: Not at all 2. Feeling down, depressed, or hopeless: Not at all 3. Trouble falling or staying asleep, or sleeping too much: Not at all 4. Feeling tired or having little energy: Several days 5. Poor appetite or overeating: Not at all 6. Feeling bad about yourself -- or that you are a failure or have let yourself or your family down: Not at all 7. Trouble concentrating on things, such as reading the newspaper or watching television: Not at all 8. Moving or speaking so slowly that other people could have noticed. Or the opposite - being so fidgety or restless that you have been moving around a lot more than usual: Not at all 9. Thoughts that you would be better off , or of hurting yourself in some way: Not at all How difficult have these problems made it for you to do your work, take care of things at home, or get along with other people?: Not difficult at all Total Score: 1 Self-Efficacy 60-Day Re-eval Assessment We would like to know how confident you are in doing certain activities. Please select your confidence level for:: Select your confidence level for the following using the scale 1-10 where 1 is not at all confident and 10 is totally confident. Your score is the average of all 6 responses. Fatigue: How confident are you that you can keep the fatigue caused by your disease from interfering with the things you want to do? Select Number: 10 Physical Discomfort or Pain: How confident are you that you can keep the physical discomfort or pain of your disease from interfering with the things you want to do? Select Number: 10 Emotional Distress: How confident are you that you can keep the emotional distress caused by your disease from interfering with the things you want to do? Select Number: 10 Other Symptoms or Health Problems: How confident are you that you can keep other symptoms or health problems from interfering with the things you want to do? Select Number: 10 Different Tasks and Activities: How confident are you that you can do the different tasks and activities needed to manage your health condition so as to reduce your need to see a doctor? Select Number: 10 Medication: How confident are you that you can do things other than just taking medication to reduce how much your illness affects your everyday life? Select Number: 10 Total Score:: 10 Cardiac Rehabilitation Goals - Cardiac Rehab Goals Cardiac Rehabilitation Goals: 1. Maintain the individual as the primary focus of care. 2. To improve the patient's quality of life. 3. Identification of cardiac risk factors and provide cardiac risk factor management. 4. Enhance the psychosocial status of the patient. 5. Reconditioning enough to allow the patient to resume customary activities. 6. Control symptoms of cardiac disease - Scale Scale for measuring improvement of personal goals: Enter appropriate number in Comments. 2 = Unchanged. 3 = Slightly Better. 4 = Moderate Improvement. 5 = Met my Goal 60-Day Re-eval Assessment Personal Goals: 60-day Re-assessment: Improve energy level, Participate in home exercise program, Get back to work, or to resume activities faster, Improve knowledge of cardiac disease, Improve muscle strength and endurance
== END 2018-02-17 23:59 ==
LOC: CR 13:00
PROVIDERS: Visit Provider Internal Medicine Cardiovascular Disease
DX: I36.1 Nonrheumatic tricuspid (valve) insufficiency (principal); I34.0 Nonrheumatic mitral (valve) insufficiency; I34.1 Nonrheumatic mitral (valve) prolapse; Z98.890 Other specified postprocedural states
CPT/HCPCS: 93798

== ENCOUNTER → 2018-02-22 07:10 | Outpatient (CLI) | payer OTHER, SELFPAY ==
--- NOTE | 2018-02-22 07:12 | RDU_ITS ---
Reason For Study: HTN Right Renal Artery Left Renal Artery Right renal artery ostium 116/33.7 Left renal artery ostium 99.0/26.9 RSV/EDV. PSV/EDV. Right renal artery proximal Left renal artery proximal PSV/EDV 119/27.4 PSV/EDV. 128/36.7 . Right renal artery mid 186/52.6 Left renal artery mid 138/39.3 PSV/EDV. PSV/EDV . Right renal artery distal 148/44.5 Left renal artery distal 139/52.0 PSV/EDV. PSV/EDV. Right RAR 1.9. Left RAR 1.4. Right Renal Parenchyma Left Renal Parenchyma Upper Pole Medula 45.6/14.6 Left upper pole medulla 30.6/10.0 PSV/EDV. PSV/EDV . Right upper pole medulla EDR .32 . Left upper pole medulla EDR .33 . Right upper pole medulla R.I. .68 . Left upper pole medulla R.I. .67 . Upper [place] Cortx 40.1/13.2 PSV/EDV. UP Cortex 36.9/15.0 PSV/EDV. Right upper pole cortex EDR .33 . Left upper pole cortex EDR .41 . Right upper pole cortex R.I. .67 . Left upper pole cortex R.I. .59 . Right lower Pole medulla 31.9/10.5 Left lower Pole medulla 41.5/19.2 PSV/EDV . PSV/EDV . Right lower pole medulla EDR .33 . Left lower pole medulla EDR .46 . Right lower pole medulla R.I. .67 . Left lower pole medulla R.I. .54 . Lower Pole Cortex 20.5/8.66 Lower Pole Cortx 36.5/12.3 PSV/EDV. PSV/EDV. Left lower pole cortex EDR .34 . Right lower pole cortex EDR .42 . Left lower pole cortex R.I. .66 . Right lower pole cortex R.I. .58 . Left Renal Hilar Right Renal Hilar Left hilar acceleration time 44 Right hilar acceleration time 37 m/sec. m/sec. LT Hilar avg 51.5/16.0 PSV/EDV . Right Hilar avg 65.2/24.2 PSV/EDV. Left Renal Dimensions Right Renal Dimensions Left kidney size 11.5 cm . Right kidney size 11.1 cm . Left cortical dimension 1.57 cm . Right cortical dimension 1.64 cm . Aorta Proximal abdominal aorta 1.56 x 1.5 cm . Proximal abdominal aorta peak systolic velocity is 98.5 cm/sec . Distal abdominal aorta 1.41 x 1.37 cm . Distal abdominal aorta peak systolic velocity is 128 cm/sec . Normal renal veins bilat. Interpretation Summary Less than 60% stenosis bilateral renal arteries. Normal aorta 1.56 x 1.5cm diameter Normal renal resistivity indices suggesting maintained renal parenchma. Ordering Physician: Suhail Warren Performed By: Pradeep Romero, RVT
== END ==
PROVIDERS: Visit Provider Nurse Practitioner Family
DX: R33.9 Retention of urine, unspecified (principal); I36.1 Nonrheumatic tricuspid (valve) insufficiency; I34.0 Nonrheumatic mitral (valve) insufficiency; I10 Essential (primary) hypertension
CPT/HCPCS: 93975

== ENCOUNTER → 2018-03-20 15:30 | Outpatient (CLI) | payer OTHER, SELFPAY ==
[2018-03-20 15:40] LABS: Bacteria 0 SEEN /hpf (None Seen); Mucous, Urine 0 SEEN /hpf (<or=2+); Red Blood Cells-Urine 0 SEEN /hpf (0-5); Squamous Epithelial Cells - UA 0 SEEN /hpf (0-5)
[2018-03-20 18:07] LABS: Color, Urine Yellow (Yellow); Glucose, Dipstick Normal (Normal); Ketone-Dipstick Negative (Negative); Leukocyte Esterase-Dipstick 100 /ul (Negative); Nitrite-Dipstick Negative (Negative); Occult Blood-Urine Negative /ul (Negative); Protein-Dipstick Negative (Negative); Urine Bilirubin Dipstick Negative (Negative); Urine Clarity Clear (Clear); Urine Urobilinogen Normal (Normal)
[2018-03-20 18:11] LABS: Absolute Lymphocyte Count 1.59 X10^3/ul (0.83-4.51); Absolute Neutrophil Count 3.4 X10^3/uL (2.0-7.7); Basophil# 0.05 X10^3/uL; Basophil% 0.8 % (0-1); Eosinophil# 0.34 X10^3/uL; Eosinophils% 5.6 % (0-5); Hematocrit 37.7 % (40-54); Hemoglobin 12.2 g/dl (13.0-16.5); Lymphocyte # 1.59 X10^3/ul (4.0); Lymphocyte % 26.2 % (19-41); Mean Corp Hgb Conc 32.4 g/gl (32-36); Mean Corpuscular Hgb 28.6 pg (27.0-32.0); Mean Corpuscular Volume 88.5 fL (80-94); Mean Platelet Vol. 10.7 fl (6.2-12.0); Monocyte# 0.71 X10^3/uL; Monocyte% 11.7 % (0-10); Neutrophil # 3.37 X10^3/uL (2.7-7.7); Neutrophil % 55.5 % (47-70); POSITIVE COUNT NO; POSITIVE DIFFERENTIAL NO; POSITIVE MORPHOLOGY NO; Platelet Count 136 K/mm3 (150-450); RBC Distribution Width CV 14.7 % (11.6-14.6); RBC Distribution Width SD 46.7 fl (35.1-43.9); Red Blood Count 4.26 M/mm3 (4.6-6.2); White Blood Count 6.1 K/mm3 (4.4-11.0)
[2018-03-20 18:24] LABS: White Blood Cells 0-5 SEEN /hpf (0-5)
[2018-03-20 18:39] LABS: ALB/GLOB Ratio 1.1 RATIO (0.9-2.4); AST(SGOT) 29 U/L (15-37); Alanine Aminotransfer ALT/SGPT 39 U/L (16-61); Alkaline Phosphatase 92 U/L (45-117); Anion Gap 5 (5-15); BUN 24 mg/dL (7-18); BUN/Creat Ratio 17.8 RATIO (10-20); Calcium,Total 9.5 mg/dL (8.5-10.1); Chloride 104 mmol/L (98-107); Creatinine, Serum 1.35 mg/dL (0.70-1.30); EST Glomerular Filtration Rate 59 mL/min (>60); Est Glom Filt Rate - Afr Amer 71 mL/min (>60); Globulin 3.8 g/dL (2.2-4.2); Glucose 82 mg/dL (74-106); Potassium 4.9 mmol/L (3.5-5.1); Protein, Total 7.8 g/dL (6.4-8.2); Sodium Level 141 mmol/L (136-145); Thyroid Stim Hormone (TSH) 1.57 uIU/mL (0.358-3.74)
[2018-03-20 18:59] LABS: Hemoglobin A1c 5.7 % (4.2-6.3)
[2018-03-21 08:44] LABS: Vitamin B12 478 pg/mL (211-911)
[2018-03-24 11:12] LABS: Vitamin B1, Thiamine 109.5 nmol/L (66.5-200.0)
== END ==
PROVIDERS: Visit Provider Family Medicine
DX: G62.9 Polyneuropathy, unspecified (principal); Z83.3 Family history of diabetes mellitus; I10 Essential (primary) hypertension
CPT/HCPCS: 36415; 80053; 81001; 82607; 83036; 84425; 84443; 84550; 85025

== ENCOUNTER → 2018-03-29 09:43 | Outpatient (CLI) | payer OTHER, SELFPAY ==
[2018-03-29 13:03] LABS: Anion Gap 9 (5-15); BUN 22 mg/dL (7-18); BUN/Creat Ratio 21.8 RATIO (10-20); Calcium,Total 9.5 mg/dL (8.5-10.1); Chloride 104 mmol/L (98-107); Creatinine, Serum 1.01 mg/dL (0.70-1.30); EST Glomerular Filtration Rate 82 mL/min (>60); Est Glom Filt Rate - Afr Amer 99 mL/min (>60); Glucose 94 mg/dL (74-106); Potassium 4.2 mmol/L (3.5-5.1); Sodium Level 143 mmol/L (136-145)
== END ==
PROVIDERS: Family Provider Family Medicine; PCP Family Medicine; Visit Provider Family Medicine
DX: R94.4 Abnormal results of kidney function studies (principal)
CPT/HCPCS: 36415; 80048

== ENCOUNTER → 2018-04-11 10:59 | Outpatient (CLI) | payer OTHER, SELFPAY ==
--- NOTE | 2018-04-11 11:00 | ECHOD_ITS ---
Reason For Study: s/p MVR and TVR Procedure This was a 2D Doppler, Color Flow transthoracic echocardiogram. Exam performed in department. Latex allergy. Left Ventricle Normal size and thickness. The estimated ejection fraction is 50-55 %. Unable to assess diastolic dysfunction. Septal motion consistent with IVCD. No regional wall motion abnormalities noted. Right Ventricle Moderately dilated right ventricle. Normal systolic function. Atria The left atrium is severely enlarged. Normal right atrium. Normal atrial septum. Mitral Valve Peak transmitral valve gradient 8 mmHg. Mean transmitral valve gradient 4 mmHg. An annuloplasty ring is noted in the mitral position. Tricuspid Valve Normal tricuspid valve. Trivial tricuspid valve insufficiency. Right ventricular systolic pressure estimated to be 29 mmHg. An annuloplasty ring is noted in the tricuspid position. Aortic Valve Trisinus/trileaflet aortic valve. Pulmonic Valve Normal pulmonic valve. Trivial pulmonic valve insufficiency. Great Vessels Normal aortic root. Normal arch. Normal inferior vena cava. Inferior vena cava collapse with sniff. Pericardium/Pleural No pericardial effusion. MMode/2D Measurements & Calculations LVIDd: 5.0 cm IVSd: 1.0 cm Ao root diam: 3.2 cm LVIDs: 3.4 cm LVPWd: 1.2 cm RVDd: 4.3 cm FS: 31.6 % LAV(MOD-sp4): 79.2 ml EDV(MOD-sp4): 148.8 ml EDV(MOD-sp2): 124.2 ml ESV(MOD-sp4): 72.1 ml EF(MOD-sp2): 52.9 % EF(MOD-sp4): 51.6 % SV(MOD-sp4): 76.7 ml SV(MOD-sp2): 65.6 ml LA A4 area: 25.3 cm2 RA A4 area: 14.9 cm2 Doppler Measurements & Calculations MV E max cricket: 154.4 cm/sec Lat Peak E' Cricket: 6.6 cm/sec Med Peak E' Cricket: 5.2 cm/sec MV A max cricket: 112.3 cm/sec E/E' lat: 23.2 E/E' med: 29.5 MV E/A: 1.4 MV V2 max: 127.2 cm/sec Ao V2 max: 129.2 cm/sec LV V1 max: 105.6 cm/sec MV max P.0 mmHg Ao max P.7 mmHg LV V1 max P.5 mmHg MV V2 mean: 83.8 cm/sec MV mean P.9 mmHg MV V2 VTI: 43.0 cm TV V2 max: 70.1 cm/sec TR max cricket: 240.3 cm/sec TV max P.0 mmHg TR max P.1 mmHg TV V2 mean: 38.2 cm/sec TV mean P.70 mmHg Interpretation Summary The estimated ejection fraction is 50-55 %. Unable to assess diastolic dysfunction. The left atrium is severely enlarged. Trivial tricuspid valve insufficiency. Right ventricular systolic pressure estimated to be 29 mmHg. Compared to echo report dated 10/26/2017, LV function has remained the same, and now pt has had successful MV and TV repair. RVSP has gone from 75 to 29 mm Hg. Ordering Physician: Suhail Warren Referring Physician: Kike Rivera Performed By: Sana Reagan, KIERA, RVT
== END ==
PROVIDERS: Family Provider Family Medicine; PCP Family Medicine; Visit Provider Nurse Practitioner Family
DX: I31.3 Pericardial effusion (noninflammatory) (principal); Z98.890 Other specified postprocedural states; R06.02 Shortness of breath
CPT/HCPCS: 93306

== ENCOUNTER → 2018-04-19 14:21 | Outpatient (CLI) | payer OTHER, SELFPAY ==
[2018-04-19 15:43] LABS: Anion Gap 3 (5-15); BUN 21 mg/dL (7-18); BUN/Creat Ratio 20.2 RATIO (10-20); Calcium,Total 9.5 mg/dL (8.5-10.1); Chloride 104 mmol/L (98-107); Creatinine, Serum 1.04 mg/dL (0.70-1.30); EST Glomerular Filtration Rate 79 mL/min (>60); Est Glom Filt Rate - Afr Amer 96 mL/min (>60); Glucose 95 mg/dL (74-106); Potassium 4.3 mmol/L (3.5-5.1); Sodium Level 140 mmol/L (136-145)
== END ==
PROVIDERS: Visit Provider Family Medicine
DX: R94.4 Abnormal results of kidney function studies (principal)
CPT/HCPCS: 36415; 80048

== ENCOUNTER → 2018-05-09 06:27 | Outpatient (CLI) | payer OTHER, SELFPAY ==
--- NOTE | 2018-05-09 14:48 | NEURO ---
NCS and/or EMG Patient Report Ordering Doctor: Suhail Borges DATE OF SERVICE: 05/09/18 Thuan Adnrew is a 52-year-old male with chief complaint of numbness and tingling in the feet, mainly on the right side. Electrodiagnostic findings right peroneal motor nerve demonstrates normal distal latency, amplitude and conduction velocity. Left peroneal motor nerve demonstrates normal response when measured at the tibialis anterior. Right tibial motor nerve demonstrates prolonged distal latency with reduced amplitude and conduction velocity. Absent left superficial peroneal response. Absent right medial plantar response. H reflexes are within normal limits. Prolonged right tibial F wave is noted. On needle EMG, decreased recruitment pattern noted in the right gastrocnemius. Electrodiagnostic findings: This is an abnormal study. 1. 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 2. No electrodiagnostic evidence noted for lumbosacral radiculopathy. 3. The left superficial peroneal and right medial plantar responses were not obtainable. Would consider correlation with upper extremity testing to evaluate for peripheral polyneuropathy. If there are any further questions, please not hesitate contact me
== END ==
PROVIDERS: Family Provider Family Medicine; PCP Family Medicine; Visit Provider Family Medicine
DX: G62.9 Polyneuropathy, unspecified (principal)
CPT/HCPCS: 95886; 95913

== ENCOUNTER → 2018-07-11 13:52 | Outpatient (CLI) | payer OTHER, SELFPAY ==
[2018-07-11 15:46] LABS: Absolute Neutrophil Count 3.1 X10^3/uL (2.0-7.7); Basophil# 0.06 X10^3/uL; Basophil% 1.1 % (0-1); Eosinophil# 0.26 X10^3/uL; Eosinophils% 4.7 % (0-5); Hematocrit 39.5 % (40-54); Hemoglobin 12.9 g/dl (13.0-16.5); Lymphocyte % 27.4 % (19-41); Mean Corp Hgb Conc 32.7 g/gl (32-36); Mean Corpuscular Hgb 29.4 pg (27.0-32.0); Mean Platelet Vol. 10.3 fl (6.2-12.0); Monocyte# 0.52 X10^3/uL; Monocyte% 9.5 % (0-10); Neutrophil # 3.13 X10^3/uL (2.7-7.7); Neutrophil % 57.1 % (47-70); POSITIVE COUNT NO; POSITIVE DIFFERENTIAL NO; POSITIVE MORPHOLOGY NO; Platelet Count 152 K/mm3 (150-450); RBC Distribution Width CV 12.7 % (11.6-14.6); Red Blood Count 4.39 M/mm3 (4.6-6.2); White Blood Count 5.5 K/mm3 (4.4-11.0)
[2018-07-11 15:56] LABS: ALB/GLOB Ratio 1.1 RATIO (0.9-2.4); AST(SGOT) 26 U/L (15-37); Alanine Aminotransfer ALT/SGPT 41 U/L (16-61); Albumin, Serum 4.1 g/dL (3.2-5.0); Alkaline Phosphatase 87 U/L (45-117); Anion Gap 9 (5-15); BUN 17 mg/dL (7-18); BUN/Creat Ratio 17.1 RATIO (10-20); Calcium,Total 9.3 mg/dL (8.5-10.1); Chloride 104 mmol/L (98-107); Cholesterol 165 mg/dL (200); Creatinine, Serum 0.99 mg/dL (0.70-1.30); EST Glomerular Filtration Rate 84 mL/min (>60); Est Glom Filt Rate - Afr Amer 101 mL/min (>60); Globulin 3.9 g/dL (2.2-4.2); Glucose 89 mg/dL (74-106); High Density Lipoprotein 44 mg/dL; Potassium 4.4 mmol/L (3.5-5.1); Sodium Level 143 mmol/L (136-145); Triglycerides 87 mg/dL; Very Low Density Lipoprotein 17 mg/dL (5-40)
[2018-07-11 15:59] LABS: Hemoglobin A1c 5.1 % (4.2-6.3)
== END ==
PROVIDERS: Family Provider Family Medicine; PCP Family Medicine; Visit Provider Family Medicine
DX: R73.02 Impaired glucose tolerance (oral) (principal); I10 Essential (primary) hypertension
CPT/HCPCS: 36415; 80053; 80061; 83036; 85025

== ENCOUNTER → 2018-07-25 07:37 | Outpatient (CLI) | payer OTHER, SELFPAY ==
--- NOTE | 2018-07-25 10:14 | NEURO ---
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 Bilateral upper extremity sensory and motor nerve conduction studies are performed. The left median motor and sensory distal latencies prolonged with preservation of amplitudes and conduction velocities. The left ulnar sensory response to digit 5 demonstrates diminished amplitude. The ulnar motor responses are normal bilaterally, and the median ulnar F-wave latencies are normal bilaterally. Left upper extremity needle electromyography is performed. Muscles evaluated included the first dorsal interosseous, abductor pollicis brevis, brachioradialis, biceps, triceps and deltoid muscles. All muscles demonstrated normal insertional activity with absence of pathologic spontaneous activity. Motor unit potential recruitment pattern and amplitude is normal in all muscles tested. Impression: 1. 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 2. 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
== END ==
PROVIDERS: Family Provider Family Medicine; PCP Family Medicine; Visit Provider Family Medicine
DX: G62.9 Polyneuropathy, unspecified (principal)
CPT/HCPCS: 95886; 95912

== ENCOUNTER 2018-08-17 06:47 | Day surgery (SDC) | payer OTHER, SELFPAY ==
[2018-08-17] VITALS (8 sets, daily range): BP systolic 113–147; BP diastolic 68–89; PULSE 63–77; RESP 14–16; TEMP 36.5–36.8; O2SAT 96–100; BMI 28.8
--- NOTE | 2018-08-17 07:55 | PCM.HP.STD ---
Problem List (1) Screening for intestinal cancer Status: Acute History of Present Illness Date of Admission: 08/17/18 The patient is a 52 year old M who presents for screening colonoscopy. He has never had a similar event. He denies bright red blood per rectum or melena. He denies any family history of colon polyps or colon cancer. October 2017 he had heart surgery. He is performing well since then. He is on iron 62 mg of aspirin per day. He did not take that today. He otherwise feels that he is in good health. 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) With a #44 mm AtriCure clip on 11/05/2017 @ [facility] Nonrheumatic mitral (valve) insufficiency (Chronic) s/p repair 10/2017 @ [facility]; Nonrheumatic tricuspid (valve) insufficiency (Chronic) s/p repair 10/2017 @ [facility] S/P tricuspid valve repair (Chronic 11/02/17) With 34 mm Grigsby MC3 band 11/02/17 at [facility] S/P mitral valve repair (Chronic 11/02/17) With a triangular section P2 angioplasty with a 34 mm Samira band 11/02/2017 at [facility] Medical History: Medical History (Last Reviewed 08/06/18 @ 14:05 by Romina Khan) Bilateral inguinal hernia (Acute) K40.20 Nonrheumatic mitral (valve) insufficiency (Chronic) I34.0 s/p repair 10/2017 @ [facility]; Nonrheumatic tricuspid (valve) insufficiency (Chronic) I36.1 s/p repair 10/2017 @ [facility] Mitral regurgitation (Resolved) I34.0 repair 11/05/2017 @ [facility]; Lower extremity edema R60.0 MVP (mitral valve prolapse) I34.1 Pulmonary edema J81.1 SOB (shortness of breath) R06.02 Urinary retention R33.9 post valve repair surgery 10/2017; Allergies latex Allergy (Verified 08/16/18 14:38) Unknown midazolam [From Versed] Adverse Reaction (Verified 08/16/18 14:38) Other HARD TO WAKE Home Medications: Ambulatory Orders Medication Instructions Recorded aspirin 81 mg tablet,delayed 162 mg PO QDAY 12/19/17 release amlodipine 5 mg tablet 5 mg PO QDAY 03/30/18 carvedilol 25 mg tablet 25 mg PO BID #180 tab 03/30/18 lisinopril 20 mg tablet 20 mg PO QDAY #90 tab 08/15/18 Cold-Eeze 1 tab PO PRN PRN 08/16/18 Surgical History: Surgical History (Last Reviewed 08/06/18 @ 14:05 by Romina Khan) Left atrial appendage exclusion (Chronic) Onset Date: 11/02/17 With a #44 mm AtriCure clip on 11/05/2017 @ [facility] S/P tricuspid valve repair (Chronic) Onset Date: 11/02/17 Z98.890 With 34 mm Grigsby MC3 band 11/02/17 at [facility] S/P mitral valve repair (Chronic) Onset Date: 11/02/17 Z98.890 With a triangular section P2 angioplasty with a 34 mm Samira band 11/02/2017 at [facility] Surgical History: no surgical history Smoking Status: Never smoker - *Family History Maternal Family History: Family History (Last Updated 08/06/18 @ 14:05 by Romina Khan) Mother Diabetes Atrial fibrillation Father Hypertension Brother Hypertension Grandfather Diabetes History Items: Diabetes Paternal Family History: Family History (Last Updated 08/06/18 @ 14:05 by Romina Khan) Mother Diabetes Atrial fibrillation Father Hypertension Brother Hypertension Grandfather Diabetes History Items: Hypertension Sibling Family History: Family History (Last Updated 08/06/18 @ 14:05 by Romina Khan) Mother Diabetes Atrial fibrillation Father Hypertension Brother Hypertension Grandfather Diabetes History Items: Hypertension Review of Systems Constitutional: Denies: Anorexia Eyes: Denies: Blurred vision HEENT: Denies: Difficulty Hearing Cardiovascular: Denies: Chest Pain Respiratory: Denies: Cough Gastrointestinal: Denies: Abdominal Pain Genitourinary: Denies: Dysuria Musculoskeletal: Denies: Arm Pain Psychiatric: Denies: Anxiety Endocrine: Denies: Change in Body Habitus VTE Information - Inpt Only VTE Present on Admission: No Patient Problems: Active and Suspected Problems (Last Reviewed 08/06/18 @ 14:05 by Romina Khan) Screening for intestinal cancer (Acute) - Physical Exam General: Alert, Oriented x3, Cooperative, No apparent distress HEENT: Atraumatic Oral: Moist Mucosa Neck: Supple Lungs: Clear to auscultation Cardiovascular: Regular rate Abdomen: Bowel Sounds Present, Soft, Non Tender Extremities: No clubbing Musculoskeletal: No Tenderness to Palpation of Joints or Extremities Lymphatic: No Cervical, Supraclavicular, or Inguinal Adenopathy Neurological: Cranial nerves II-XII grossly intact Vital Signs Temp Pulse Resp BP Pulse Ox 98.2 F 70 14 147/89 H 98 08/17/18 07:06 08/17/18 07:06 08/17/18 07:06 08/17/18 07:06 08/17/18 07:06 Oxygen Delivery Method Room Air Weight: 189 lb 9.561 oz Body Mass Index (BMI) 28.8 Assessment/Plan All Active Problems (Last Reviewed 08/06/18 @ 14:05 by Romina Khan) Screening for intestinal cancer (Acute) Bilateral inguinal hernia (Acute) Gouty arthritis of right great toe (Acute) Pain in right toe(s) (Acute) Mitral regurgitation (Resolved) SOB (shortness of breath) on exertion (Acute) Mitral regurgitation (Acute) Pulmonary edema (Acute) Mitral valve prolapse (Acute) Lower extremity edema (Acute) Screening colonoscopy with possible biopsy or polypectomy is indicated. The patient is aware of the technique, benefits, risks and alternatives. We have scheduled and will proceed as indicated. Primary care physician is Dr Suhail Munoz M.D., F.A.C.S.
--- NOTE | 2018-08-17 08:25 | OP.ENDO_ITS ---
Patient Name: Thuan Andrew Procedure Date: 08/17/2018 7:45 AM Date of : 1965 Age: 52 Procedure: Colonoscopy Indications: Screening for colorectal malignant neoplasm Providers: Tu Munoz MD Referring MD: Tu Munoz MD Medicines: See the Anesthesia note for documentation of the administered medications Patient Profile: Last Colonoscopy: none. The patient's first colonoscopy is today. Complications: No immediate complications. Procedure: Pre-Anesthesia Assessment: - Prior to the procedure, a History and Physical was performed, and patient medications and allergies were reviewed. The patient's tolerance of previous anesthesia was also reviewed. The risks and benefits of the procedure and the sedation options and risks were discussed with the patient. All questions were answered, and informed consent was obtained. Prior Anticoagulants: The patient has taken aspirin, last dose was day of procedure. ASA Grade Assessment: II - A patient with mild systemic disease. After reviewing the risks and benefits, the patient was deemed in satisfactory condition to undergo the procedure. After I obtained informed consent, the scope was passed under direct vision. Throughout the procedure, the patient's blood pressure, pulse, and oxygen saturations were monitored continuously. The colonoscope was introduced through the anus and advanced to the cecum, identified by appendiceal orifice and ileocecal valve. The colonoscopy was performed with moderate difficulty due to a tortuous colon. Successful completion of the procedure was aided by applying abdominal pressure. The patient tolerated the procedure well. The quality of the bowel preparation was good. Scope In: 8:05:03 AM Scope Withdrawal Time 0 hours 6 minutes 2 seconds Scope Out: 8:18:05 AM Total Procedure Duration Time 0 hours 13 minutes 2 seconds Findings: The digital rectal exam findings include external hemorrhoids with long fibrous tag on left that is 3cm long]. Multiple diverticula were found in the sigmoid colon and descending colon. The exam was otherwise without abnormality. Impression: - Internal hemorrhoids that do not return to the anal canal, thus continuously prolapsed (Grade IV) found on digital rectal exam. - Diverticulosis in the sigmoid colon and in the descending colon. - The examination was otherwise normal. - No specimens collected. Recommendation: - Discharge patient to home. - Resume previous diet. - Continue present medications. - Repeat colonoscopy in 10 years for screening purposes. Procedure Code(s): --- Professional --- 82880, Colonoscopy, flexible; diagnostic, including collection of specimen(s) by brushing or washing, when performed (separate procedure) Diagnosis Code(s): --- Professional --- Z12.11, Encounter for screening for malignant neoplasm of colon K64.3, Fourth degree hemorrhoids K57.30, Diverticulosis of large intestine without perforation or abscess without bleeding CPT copyright 2017 [employer]. All rights reserved. The codes documented in this report are preliminary and upon him coder review may be revised to meet current compliance requirements. Tu Munoz MD 08/17/2018 8:25:22 AM This report has been signed electronically. Number of Addenda: 0 Note Initiated On: 08/17/2018 7:45 AM
== END 2018-08-17 09:37 | disposition home or self-care (01) ==
LOC: EN 06:48 → AC 06:49
PROVIDERS: Family Provider Family Medicine; PCP Family Medicine; Visit Provider Surgery
PROC: 0DJD8ZZ Inspection of Lower Intestinal Tract, Via Natural or Artificial Opening Endoscopic (ICD-10-PCS; CPT 45378; principal; 2018-08-17 07:40)
DX: Z12.11 Encounter for screening for malignant neoplasm of colon (principal); K64.3 Fourth degree hemorrhoids; K64.4 Residual hemorrhoidal skin tags; K57.30 Diverticulosis of large intestine without perforation or abscess without bleeding; I10 Essential (primary) hypertension; I34.0 Nonrheumatic mitral (valve) insufficiency; I36.1 Nonrheumatic tricuspid (valve) insufficiency; K40.20 Bilateral inguinal hernia, without obstruction or gangrene, not specified as recurrent; K58.9 Irritable bowel syndrome, unspecified; Z79.82 Long term (current) use of aspirin; Z79.899 Other long term (current) drug therapy
CPT/HCPCS: 45378; J7120

== ENCOUNTER 2018-08-23 10:59 | Day surgery (SDC) | payer OTHER, SELFPAY ==
--- NOTE | 2018-08-17 08:08 | EKG12_ITS ---
Test Reason : Blood Pressure : / mmHG Vent. Rate : 062 BPM Atrial Rate : 062 BPM P-R Int : 184 ms QRS Dur : 106 ms QT Int : 438 ms P-R-T Axes : 052 043 076 degrees QTc Int : 444 ms Normal sinus rhythm Normal ECG Confirmed by TIFFANIE LYLES, EMMANUEL ([id number]), editorial project manager COLBY YANCEY ([id number]) on 08/21/2018 2:46:37 PM Referred By: Tu Munoz Confirmed By:EMMANUEL MORENO MD
[2018-08-17 08:53] LABS: Hematocrit 37.3 % (40-54); Hemoglobin 12.5 g/dl (13.0-16.5); Mean Corp Hgb Conc 33.5 g/gl (32-36); Mean Corpuscular Hgb 29.4 pg (27.0-32.0); Mean Corpuscular Volume 87.8 fL (80-94); Mean Platelet Vol. 9.5 fl (6.2-12.0); Platelet Count 125 K/mm3 (150-450); RBC Distribution Width CV 12.7 % (11.6-14.6); RBC Distribution Width SD 40.8 fl (35.1-43.9); Red Blood Count 4.25 M/mm3 (4.6-6.2); White Blood Count 5.6 K/mm3 (4.4-11.0)
[2018-08-17 08:54] LABS: Scan Indicated on CBC? Y/N NO
[2018-08-17 08:56] LABS: Anion Gap 7 (5-15); BUN 13 mg/dL (7-18); BUN/Creat Ratio 14.8 RATIO (10-20); Calcium,Total 8.7 mg/dL (8.5-10.1); Chloride 107 mmol/L (98-107); Creatinine, Serum 0.88 mg/dL (0.70-1.30); EST Glomerular Filtration Rate 96 mL/min (>60); Est Glom Filt Rate - Afr Amer 117 mL/min (>60); Glucose 98 mg/dL (74-106); Potassium 3.1 mmol/L (3.5-5.1); Sodium Level 139 mmol/L (136-145)
[2018-08-21 12:19] LABS: Potassium 4.4 mmol/L (3.5-5.1)
[2018-08-23] VITALS (11 sets, daily range): BP systolic 102–151; BP diastolic 69–96; PULSE 49–62; RESP 16–18; TEMP 36.1–36.6; O2SAT 9–99; BMI 28.7
--- NOTE | 2018-08-23 13:00 | HERN_PTH ---
PATIENT: CHRISTINE MORROW LOC: [facility] [place] U#:[id number] AGE/SX: 52/M ROOM: RE08/23/[address]: Dr. Tu Munoz MD : 1965 BED: DIS: 08/23/2018 SPEC #: [id number] RECD: 08/24/18 08:31 STATUS: CR DEEJAY #: [id number] BLANE: 08/23/18 13:[address]: Tu Munoz DEPT: SURGICAL PATHOLOGY RECD BY: Mathieu Carmona ENTERED: 08/24/18 11:56 SP TYPE: Hernia OTHR DR: Dr. Suhail Borges MD Tissues: A - HERNIA B - Anal region Procedures: Surgery Specimen Level II Surgery Specimen Level III HEADER OPERATION: Left inguinal hernia repair with mesh; excision anal tag PRE-OP DIAGNOSIS: Nonrecurrent bilateral inguinal hernia without obstruction or gangrene; anal tag TISSUE SUBMITTED: A - Cremasteric hernia fibers, B - Anal tag MICROSCOPIC DIAGNOSIS A. Cremasteric hernia fibers: Fragments of fibroadipose tissue and adjacent skeletal muscle tissue. B. Anal tag, biopsy: Inflamed fibroepithelial polyp (skin tag). OSCAR:aung 08/27/18 MICROSCOPIC DESCRIPTION Slides are reviewed. GROSS DESCRIPTION A - Received in fixative is one container labeled with the patient's name and designated cremasteric hernia fibers. The specimen consists of a piece of whaley-pink soft tissue measuring 6 x 2 x 0.5 cm. No mass lesion is identified. Wood Veneer Taper sections are submitted in one cassette. B - Received in fixative is one container labeled with the patient's name and designated anal tag. The specimen consists of a polypoid piece of whaley-white skin measuring 1.3 x 1 x 0.9 cm. The specimen is inked, bisected and submitted entirely in one cassette. / OSCAR:aung 08/24/18 TC:5 CPT: 97598, 63479
[2018-08-23] MEDS: Cefazolin 2 GM in 0.9% Normal Saline 100 ML IV (13:38)
--- NOTE | 2018-08-23 13:43 | DCINST_ITS ---
Discharge Diet: Light diet - advance as tolerated - if you have questions about your diet instructions, please talk to you doctor. Discharge Activity: May Not Drive - for 1 week or while taking narcotic pain medicine. May shower in (days): 1 Lifting Restrictions: 10 pounds Call your doctor if your incision/area has: Continuous Slow Oozing, Sudden Increased Bleeding, Increased Pain/ Swelling, Increased Redness, Foul Smelling Discharge Call your doctor if you observe: Fever of 101 or Higher Suture Line Care: Avoid Pulling/Pushing, Avoid Pinching/Bending Additional Dressing/Incision Instructions:: Change or remove dressing in 4 days. Leave steri-strips in place for 1 week. Allergies/Adverse Reactions: Allergies latex Allergy (Verified 08/16/18 14:38) Unknown midazolam [From Versed] Adverse Reaction (Verified 08/16/18 14:38) Other HARD TO WAKE Medications to take at Discharge aspirin 81 mg tablet,delayed release 162 mg PO QDAY 12/19/17 amlodipine 5 mg tablet 5 mg PO QDAY 03/30/18 carvedilol 25 mg tablet 25 mg PO BID #180 tab 03/30/18 lisinopril 20 mg tablet 20 mg PO QDAY #90 tab 08/15/18 Cold-Eeze 1 tab PO PRN PRN 08/16/18 potassium chloride ER 20 mEq tablet,extended release 20 meq PO TID #26 tab 08/17/18 Hydrocodone Bitart/Apap 5-325 [[place] 5MG-325MG] 1 tablet PO Q6H PRN PRN 3 Days #8 tablet 08/23/18 The following prescriptions were given: Hydrocodone Bitart/Apap 5-325 [[place] 5MG-325MG] 1 tablet PO Q6H PRN PRN 3 Days #8 tablet PRN Reason: Pain Primary Care Physician: Suhail Borges MD [Primary Care Provider] - Test Results: Test results from this visit will be discussed in further detail at your follow- up appointment, if applicable. Please Follow Up With: Tu Munoz MD - [phone] When: Call to make an appointment to be seen in about 10 days.
[2018-08-23] MEDS: Bupivacaine Mpf 0.5% 30 ML VIAL (14:30)
--- NOTE | 2018-08-23 15:16 | PCM.OPRPT ---
Problem List (1) Bilateral inguinal hernia Status: Acute Qualifiers: Obstruction and gangrene presence: without obstruction or gangrene Recurrence: non-recurrent Qualified Code(s): K40.20 - Bilateral inguinal hernia, without obstruction or gangrene, not specified as recurrent Report of Operation Date of Procedure: 08/23/18 Pre-Operative Diagnosis: Large left inguinal hernia, left perianal external hemorrhoidal tag Post-Operative Diagnosis: Large direct and indirect left inguinal hernia, left perianal external hemorrhoidal tag Surgery/Procedure Performed:: Prem left inguinal herniorrhaphy. Excision left perianal external hemorrhoidal tag. Part preshaped keyhole. 10 x 4.5 cm. Lot number [id number] ADMINISTRATOR and [id number]. Reference #[id number]. Expiry date 01/17/2023. Description of Surgical Findings:: Timeout informed consent was obtained. 52-year-old gent was taken out from placement table. He underwent monitored anesthesia care. The left groin was sterilely prepped and draped. 1% lidocaine mixed 50-50 with 0.5% was used as a local anesthetic. Throughout the procedure total of 30 cc was used. Local was instilled. A transverse incision was made the left groin. Sharp dissection carried down through the substance tissue. Electrocautery was used for hemostasis. The inguinal defect was significant with complete disruption of the floor of the inguinal canal. The dissection was extraordinarily difficult and tedious. There were hypertrophic cremasteric fibers. Careful control was obtained at the pubic tubercle the cord structures and a [place] drain was placed. Tediously the sac was dissected free from the cord structures. Were needed hemostasis obtained with 3-0 Vicryl ligatures and electrocautery. The sac was eventually dissected free to the internal ring. It could be then inverted. Dissection was performed medially overlying the pubic tubercle. The transversalis fascia was then approximated to itself with a running 3-0 Ethibond. There was complete lack of integrity of the inguinal floor. Suture was carried from the pubic tubercle to the internal ring. Then a Bard mesh preshaped keyhole 10 x 4.5 cm was selected. This wrapped around the internal ring cord structures and secured to its to itself laterally with 3-0 Ethibond. He was placed so as to lie beneath the external oblique laterally and overlying the pubic tubercle. It was then meticulously secured in place with multiple interrupted 3-0 Ethibond sutures. Good coverage and securement was felt to have been achieved. It is of note that because of all the hypertrophic tissue had to transect the cremasteric fibers completely circumferentially around the cord structures at this point because of the degree of dissection potentially sacrifice the inguinal nerve. [place] however that the completion of procedure I had good coverage of the inguinal defect. The external oblique was approximated with a running 3-0 Vicryl. Then the subcutaneous tissue approximated with the same. The skin edges proximate running septic or 4-0 Monocryl. Steri-Strips Telfa and OpSite dressings applied. He was then placed in a lithotomy position in the perianal tag the left of the anus was treated with Betadine and then local anesthetic. Electrocautery was used to simply amputate this at the base. That specimen is submitted for analysis. Vaseline gauze dressing applied. Sponge and instrument and needle counts were reported the surgeon for correct. Specimen includes a hypertrophic cremasteric fibers for the inguinal hernia and a hemorrhoidal tag. Drains none. Blood loss minimal. He was taken to the recovery area in satisfactory condition without apparent complication Tu Munoz M.D., F.A.C.S. Type of Anesthesia:: Local MAC Anesthesiologist: Ck Singh
--- NOTE | 2018-08-23 15:21 | OP.PCM_ITS ---
Problem List (1) Bilateral inguinal hernia Status: Acute Qualifiers: Obstruction and gangrene presence: without obstruction or gangrene Recurrence: non-recurrent Qualified Code(s): K40.20 - Bilateral inguinal hernia, without obstruction or gangrene, not specified as recurrent Report of Operation Date of Procedure: 08/23/18 Pre-Operative Diagnosis: Large left inguinal hernia, left perianal external hemorrhoidal tag Post-Operative Diagnosis: Large direct and indirect left inguinal hernia, left perianal external hemorrhoidal tag Surgery/Procedure Performed:: Prem left inguinal herniorrhaphy. Excision left perianal external hemorrhoidal tag. Part preshaped keyhole. 10 x 4.5 cm. Lot number [id number] DRILLING MACHINE OPERATOR and [id number]. Reference #[id number]. Expiry date 01/17/2023. Description of Surgical Findings:: Timeout informed consent was obtained. 52-year-old gent was taken out from placement table. He underwent monitored anesthesia care. The left groin was sterilely prepped and draped. 1% lidocaine mixed 50-50 with 0.5% was used as a local anesthetic. Throughout the procedure total of 30 cc was used. Local was instilled. A transverse incision was made the left groin. Sharp dissection carried down through the substance tissue. Electrocautery was used for hemostasis. The inguinal defect was significant with complete disruption of the floor of the inguinal canal. The dissection was extraordinarily difficult and tedious. There were hypertrophic cremasteric fibers. Careful control was obtained at the pubic tubercle the cord structures and a [place] drain was placed. Tediously the sac was dissected free from the cord structures. Were needed hemostasis obtained with 3-0 Vicryl ligatures and electrocautery. The sac was eventually dissected free to the internal ring. It could be then inverted. Dissection was performed medially overlying the pubic tubercle. The transversalis fascia was then approximated to itself with a running 3-0 Ethibond. There was complete lack of integrity of the inguinal floor. Suture was carried from the pubic tubercle to the internal ring. Then a Bard mesh preshaped keyhole 10 x 4.5 cm was selected. This wrapped around the internal ring cord structures and secured to its to itself laterally with 3-0 Ethibond. He was placed so as to lie beneath the external oblique laterally and overlying the pubic tubercle. It was then meticulously secured in place with multiple interrupted 3-0 Ethibond sutures. Good coverage and securement was felt to have been achieved. It is of note that because of all the hypertrophic tissue had to transect the cremasteric fibers completely circumferentially around the cord structures at this point because of the degree of dissection potentially sacrifice the inguinal nerve. [place] however that the completion of procedure I had good coverage of the inguinal defect. The external oblique was approximated with a running 3-0 Vicryl. Then the subcutaneous tissue approximated with the same. The skin edges proximate running septic or 4-0 Monocryl. Steri-Strips Telfa and OpSite dressings applied. He was then placed in a lithotomy position in the perianal tag the left of the anus was treated with Betadine and then local anesthetic. Electrocautery was used to simply amputate this at the base. That specimen is submitted for analysis. Vaseline gauze dressing applied. Sponge and instrument and needle counts were reported the surgeon for correct. Specimen includes a hypertrophic cremasteric fibers for the inguinal hernia and a hemorrhoidal tag. Drains none. Blood loss minimal. He was taken to the recovery area in satisfactory condition without apparent complication Tu Munoz M.D., F.A.C.S. Type of Anesthesia:: Local MAC Anesthesiologist: Ck Singh
[2018-08-23] MEDS: HYDROcodone Bitartrate/Apap 5/325 Tablet PO (17:07)
== END 2018-08-23 18:40 | disposition home or self-care (01) ==
LOC: SDC 11:00 → AC 11:01
PROVIDERS: Family Provider Family Medicine; PCP Family Medicine; Visit Provider Surgery
PROC: (CPT 46220; principal; 2018-08-23 12:45)
DX: K40.20 Bilateral inguinal hernia, without obstruction or gangrene, not specified as recurrent (principal); K64.4 Residual hemorrhoidal skin tags; I10 Essential (primary) hypertension; Z79.82 Long term (current) use of aspirin; Z79.899 Other long term (current) drug therapy
CPT/HCPCS: 46220; 49505; 36415; 80048; 84132; 85027; 88302; 88304; 93005; J7120; C1781

== ENCOUNTER → 2018-10-23 13:53 | Outpatient (CLI) | payer OTHER, SELFPAY ==
[2018-10-17 12:55] VITALS: BMI 29.5
[2018-10-23 16:01] LABS: ALB/GLOB Ratio 1.1 RATIO (0.9-2.4); AST(SGOT) 22 U/L (15-37); Alanine Aminotransfer ALT/SGPT 41 U/L (16-61); Albumin, Serum 4.3 g/dL (3.2-5.0); Alkaline Phosphatase 98 U/L (45-117); Anion Gap 7 (5-15); BUN 18 mg/dL (7-18); BUN/Creat Ratio 18.5 RATIO (10-20); Calcium,Total 9.5 mg/dL (8.5-10.1); Chloride 104 mmol/L (98-107); Creatinine, Serum 0.97 mg/dL (0.70-1.30); EST Glomerular Filtration Rate 86 mL/min (>60); Est Glom Filt Rate - Afr Amer 104 mL/min (>60); Globulin 3.8 g/dL (2.2-4.2); Glucose 97 mg/dL (74-106); Potassium 4.1 mmol/L (3.5-5.1); Protein, Total 8.1 g/dL (6.4-8.2); Sodium Level 141 mmol/L (136-145)
[2018-10-23 16:22] LABS: Hemoglobin A1c 5.1 % (4.2-6.3)
== END ==
PROVIDERS: Family Provider Family Medicine; PCP Family Medicine; Visit Provider Family Medicine
DX: R73.02 Impaired glucose tolerance (oral) (principal); I10 Essential (primary) hypertension
CPT/HCPCS: 36415; 80053; 83036

== ENCOUNTER → 2018-10-24 15:58 | Outpatient (CLI) | payer OTHER, SELFPAY ==
[2018-10-17 12:55] VITALS: BMI 29.5
[2018-10-24 05:52] VITALS: BP 144/98; PULSE 75; RESP 16; TEMP 36.9; O2SAT 98; BMI 29.8
[2018-10-24 06:07] LABS: Hemoglobin 13.7 g/dl (13.0-16.5); Mean Corp Hgb Conc 33.4 g/gl (32-36); Mean Corpuscular Volume 89.7 fL (80-94); Mean Platelet Vol. 9.6 fl (6.2-12.0); Platelet Count 182 K/mm3 (150-450); RBC Distribution Width CV 12.8 % (11.6-14.6); RBC Distribution Width SD 41.5 fl (35.1-43.9); Red Blood Count 4.57 M/mm3 (4.6-6.2)
[2018-10-24 06:12] LABS: Scan Indicated on CBC? Y/N NO
--- NOTE | 2018-10-24 07:06 | PCM.PN.BLA ---
Progress Note Fungal rash right groin greater than left Will cancel RIH repair today and treat and reschedule Abhishek
== END ==
PROVIDERS: Family Provider Family Medicine; PCP Family Medicine; Referring Provider Surgery; Visit Provider Surgery
DX: Z01.818 Encounter for other preprocedural examination (principal)
CPT/HCPCS: 36415; 85027; J7120

== ENCOUNTER 2018-11-07 12:50 | Day surgery (SDC) | payer OTHER, SELFPAY ==
[2018-10-24 05:52] VITALS: BMI 29.8
--- NOTE | 2018-11-05 08:34 | NURSING ---
Pt reports he completed the oral and topical antibiotic prescribed from Dr. Munoz for his groin rash. Pt reports that the rash is pink colored but no longer raised and vastly improved. Will call Dr. Munoz's nurse to inform her what pt reported.
[2018-11-05 09:02] VITALS: BMI 29.8
[2018-11-07 13:09] VITALS: BP 155/94; PULSE 66; RESP 16; TEMP 36.8; O2SAT 100; BMI 30.3
[2018-11-07] MEDS: Cefazolin 2 GM in 0.9% Normal Saline 100 ML IV (15:00)
--- NOTE | 2018-11-07 15:04 | DCINST_ITS ---
Discharge Diet: Light diet - advance as tolerated - if you have questions about your diet instructions, please talk to you doctor. Discharge Activity: May Not Drive - for 1 week or while taking narcotic pain medicine. May shower in (days): 1 Lifting Restrictions: 10 pounds Call your doctor if your incision/area has: Continuous Slow Oozing, Sudden Increased Bleeding, Increased Pain/ Swelling, Increased Redness, Foul Smelling Discharge Call your doctor if you observe: Fever of 101 or Higher Suture Line Care: Avoid Pulling/Pushing, Avoid Pinching/Bending Additional Dressing/Incision Instructions:: Change or remove dressing in 4 days. Leave steri-strips in place for 1 week. Allergies/Adverse Reactions: Allergies latex Allergy (Verified 11/05/18 10:06) Unknown midazolam [From Versed] Adverse Reaction (Verified 11/05/18 10:06) Other HARD TO WAKE Medications to take at Discharge aspirin 81 mg tablet,delayed release 162 mg PO QDAY 12/19/17 amlodipine 5 mg tablet 5 mg PO QDAY 03/30/18 lisinopril 20 mg tablet 20 mg PO QDAY #90 tab 08/15/18 Cold-Eeze 1 tab PO PRN PRN 08/16/18 carvedilol 25 mg tablet 25 mg PO BID #180 tab 11/05/18 fluconazole 100 mg tablet 200 mg PO X1 #1 tab 11/05/18 Primary Care Physician: Suhail Borges MD [Primary Care Provider] - Test Results: Test results from this visit will be discussed in further detail at your follow- up appointment, if applicable. Please Follow Up With: Tu Munoz MD - [phone] When: Call to make an appointment to be seen in about 10 days.
[2018-11-07] MEDS: Bupivacaine Mpf 0.5% 30 ML VIAL (15:15)
--- NOTE | 2018-11-07 16:01 | PCM.OPRPT ---
Problem List (1) Reducible right inguinal hernia Status: Acute Report of Operation Date of Procedure: 11/07/18 Pre-Operative Diagnosis: Right inguinal hernia Post-Operative Diagnosis: Direct right inguinal hernia Surgery/Procedure Performed:: Prem right inguinal herniorrhaphy Description of Surgical Findings:: Timeout and informed consent was obtained. 53-year-old gentleman was taken to the operating room. He was placed on the table. He underwent monitored anesthesia care. Ancef 2 g given intravenously preoperatively. The right groin was sterilely prepped and draped. 1% lidocaine mixed 50-50 with 0.5% Marcaine was used as a local anesthetic. Of 4 cc was used. A transverse incision was made the right groin sharp dissection carried down through the subcu tissue hemostasis attained with electrocautery and 3-0 Vicryl ties. The external oblique was identified and incised along his fascia. The direct defect was identified. Circumferential control was obtained the cord structures. The inguinal nerve identified and protected. The pubic tubercle was identified dissected free the indirect space dissected free. I then used a running 3-0 Ethibond to secure the weakened transversalis fascia from the pubic tubercle to the internal ring. I utilized the Bard mesh preshaped keyhole size 10 x 4.5 cm. Lot number [id number]. Reference #[id number]. Expiry date 03/17/2023 to perform the repair. The mesh was placed in the position wrapped around the internal ring and secured there with interrupted 3-0 Ethibond. The tails were trimmed. The mesh was placed overlying the pubic tubercle and the direct space. I secured that then in place with multiple interrupted 3-0 Ethibond sutures. Excellent coverage and securement was achieved. The external oblique was reapproximated the right interrupted 3-0 Vicryl. There appeared to be good positional lie of the mesh good reduction of the hernia. The Osmani's fascia was approximated up to 3-0 Vicryl simple sutures. The skin edges approximated with a running septic or 4-0 Monocryl. Steri-Strips Telfa and OpSite dressings applied. Sponge and instrument and needle counts were reported to the surgeon be correct. Blood loss was minimal. He tolerated the procedure well was taken to the recovery area in satisfactory condition without complication. Specimens none. Drains none. Blood loss minimal Tu Munoz M.D., F.A.C.S. Type of Anesthesia:: Local MAC Anesthesiologist: Yahir Gandara
--- NOTE | 2018-11-07 16:05 | OP.PCM_ITS ---
Problem List (1) Reducible right inguinal hernia Status: Acute Report of Operation Date of Procedure: 11/07/18 Pre-Operative Diagnosis: Right inguinal hernia Post-Operative Diagnosis: Direct right inguinal hernia Surgery/Procedure Performed:: Prem right inguinal herniorrhaphy Description of Surgical Findings:: Timeout and informed consent was obtained. 53-year-old gentleman was taken to the operating room. He was placed on the table. He underwent monitored anesthesia care. Ancef 2 g given intravenously preoperatively. The right groin was sterilely prepped and draped. 1% lidocaine mixed 50-50 with 0.5% Marcaine was used as a local anesthetic. Of 4 cc was used. A transverse incision was made the right groin sharp dissection carried down through the subcu tissue hem ostasis attained with electrocautery and 3-0 Vicryl ties. The external oblique was identified and incised along his fascia. The direct defect was identified. Circumferential control was obtained the cord structures. The inguinal nerve identified and protected. The pubic tubercle was identified dissected free the indirect space dissected free. I then used a running 3-0 Ethibond to secure the weakened transversalis fascia from the pubic tubercle to the internal ring. I utilized the Bard mesh preshaped keyhole size 10 x 4.5 cm. Lot number [employer] [id number]. Reference #[id number]. Expiry date 03/17/2023 to perform the repair. The mesh was placed in the position wrapped around the internal ring and secured there with interrupted 3-0 Ethibond. The tails were trimmed. The mesh was placed overlying the pubic tubercle and the direct space. I secured that then in place with multiple interrupted 3-0 Ethibond sutures. Excellent coverage and securement was achieved. The external oblique was reapproximated the right interrupted 3-0 Vicryl. There appeared to be good positional lie of the mesh good reduction of the hernia. The Osmani's fascia was approximated up to 3-0 Vicryl simple sutures. The skin edges approximated with a running septic or 4-0 Monocryl. Steri-Strips Telfa and OpSite dressings applied. Sponge and instrument and needle counts were reported to the surgeon be correct. Blood loss was minimal. He tolerated the procedure well was taken to the recovery area in satisfactory condition without complication. Specimens none. Drains none. Blood loss minimal Tu Munoz M.D., F.A.C.S. Type of Anesthesia:: Local MAC Anesthesiologist: Yahir Gandara
[2018-11-07 16:10] VITALS: BP 116/80; BP 155/94; PULSE 94; RESP 16; TEMP 36.4; O2SAT 94
[2018-11-07 16:15] VITALS: BP 133/85; BP 155/94; PULSE 71; RESP 16; O2SAT 96
[2018-11-07 16:27] VITALS: BP 144/84; BP 155/94; PULSE 62; RESP 16; TEMP 36.5; O2SAT 98
[2018-11-07] MEDS: HYDROcodone Bitartrate/Apap 5/325 Tablet PO (16:48)
[2018-11-07 17:43] VITALS: BP 148/86; BP 155/94; PULSE 62; RESP 16; TEMP 37.2; O2SAT 97
--- OUTSIDE RECORDS SUMMARY | 2019-02-08 18:06 | XMS RPT_ITS ---
:1965 Author Organization OHIP Support Name Relationship Address Phone VIKRAM ANDREW Unavailable [address] + [place] [address] [employer]LEY STEEL RULE Unavailable [address] + [facility] [address] VIKRAM ANDREW Unavailable [address] + [place] [address] [employer] Unavailable [address] + [facility] [address] VIKRAM ANDREW Unavailable [address] + [place] [address] [employer] Unavailable [address] + [place] [address] VIKRAM ANDREW Unavailable [address] + [place] [address] [employer] Unavailable [address] + [place] [address] VIKRAM ANDREW Unavailable [address] + [place] [address] [employer] Unavailable [address] + [place] [address] VIKRAM ANDREW Unavailable [address] + [place] [address] [employer] Unavailable [address] + [place] [address] VIKRAM ANDREW Unavailable [address] + [place] [address] [employer] Unavailable [address] + [place] [address] VIKRAM ANDREW Unavailable [address] + [place] [address] [employer] Unavailable [address] + [place] [address] TOVIKRAM SLAUGHTER Unavailable [address] + [place] [address] [employer] Unavailable [address] + [place] [address] TOVIKRAM SLAUGHTER Unavailable [address] + [place] [address] [employer] Unavailable [address] + [place] [address] TOVIKRAM SLAUGHTER Unavailable [address] + [place] [address] [employer] Unavailable [address] + [place] [address] TOVIKRAM SLAUGHTER Unavailable [address] + [place] [address] [employer]LEY [employer] Unavailable [address] + [place] [address] TOVIKRAM SLAUGHTER Unavailable [address] + [place] [address] [employer]LEY [employer] Unavailable [address] + [place] [address] VIKRAM ANDREW Unavailable [address] + [place] [address] [employer] Unavailable [address] + [place] [address] VIKRAM ANDREW Unavailable [address] + [place] [address] [employer]LEY [employer] Unavailable [address] + [place] [address] TOVIKRAM SLAUGHTER Unavailable [address] + [place] [address] [employer]LEY [employer] Unavailable [address] + [place] [address] TOVIKRAM SLAUGHTER Unavailable [address] + [place] [address] [employer]LEY [employer] Unavailable [address] + [place] [address] VIKRAM ANDREW Unavailable [address] + [place] [address] [employer]LEY [employer] Unavailable [address] + [place] [address] TOVIKRAM SLAUGHTER Unavailable [address] + [place] [address] [employer]OUSLEY [employer]LE Unavailable [address] + [place] [address] VIKRAM ANDREW Unavailable [address] + [place] [address] [employer] Unavailable [address] + [place] [address] VIKRAM ANDREW Unavailable [address] + [place] [address] [employer]LEY [employer] Unavailable [address] + [place] [address] VIKRAM ANDREW Unavailable [address] + [place] [address] [employer]LEY [employer] Unavailable [address] + [place] [address] VIKRAM ANDREW Unavailable [address] + [place] [address] [employer]LEY [employer] Unavailable [address] + [place] [address] VIKRAM ANDREW Unavailable [address] + [place] [address] [employer]LEY [employer] Unavailable [address] + [place] [address] VIKRAM ANDREW Unavailable [address] + [place] [address] [employer]OUSLEY [employer] RULE Unavailable [address] + [place] [address] VIKRAM ANDREW Unavailable [address] + [place] [address] [employer]LEY [employer] Unavailable [address] + [place] [address] VIKRAM ANDREW Unavailable [address] + [place] [address] [employer]LEY [employer] Unavailable [address] + [place] [address] VIKRAM ANDREW Unavailable [address] + [place] [address] [employer] Unavailable [address] + [place] [address] VIKRAM ANDREW Unavailable [address] + [place] [address] [employer] Unavailable [address] + [place] [address] TOVIKRAM SLAUGHTER Unavailable [address] + [place] [address] [employer]LEY [employer] Unavailable [address] + [place] [address] VIKRAM ANDREW Unavailable NA + [place], [place] [employer] Unavailable [address] + [place] [address] VIKRAM ANDREW Unavailable NA + [place], [place] [employer] Unavailable [address] + [place] [address] VIKRAM ANDREW Unavailable NA + [place], [place] [employer] Unavailable [address] + [place] [address] VIKRAM ANDREW Unavailable NA + [place], [place] [employer] Unavailable [address] + [place] [address] VIKRAM ANDREW Unavailable NA + [place], [place] [employer] Unavailable [address] + [place] [address] VIKRAM ANDREW Unavailable [address] + [place] [address] [employer]LEY [employer] Unavailable [address] + [place] [address] VIKRAM ANDREW Unavailable [address] + [place] [address] [employer]LEY [employer] Unavailable [address] [facility] + [place] [address] Care Team Providers Name Role Phone Rachna Valladares PA-C Attending Unavailable Suhail Borges Referring Unavailable RoofSuhail Attending Unavailable Roof, Suhail H Referring Unavailable SchinSuhail moran Primary Care Unavailable Suhail Borges Attending Unavailable Primay Care Physicia, No Primary Care Unavailable Kike Rivera Attending Unavailable Primay Care Physicia, No Primary Care Unavailable RoofSuhail Attending Unavailable Kelvin, Suhail H Referring Unavailable Primay Care Physicia, No Primary Care Unavailable Balwinder Arshad Attending Unavailable Balwinder rAshad Referring Unavailable Primay Care Physicia, No Primary Care Unavailable Balwinder Arshad Attending Unavailable Primay Care Physicia, Clotilde Referring Unavailable Primay Care Physicia, No Primary Care Unavailable Roof, Suhail Andre Attending Unavailable Roof, Suhail H Referring Unavailable Primay Care Physicia, No Primary Care Unavailable Kike Rivera Attending Unavailable Primay Care Physicia, No Primary Care Unavailable Kike Rivera Attending Unavailable Primay Care Physicia, No Primary Care Unavailable Kelvin, Suhail Andre Attending Unavailable Brent Baeza Referring Unavailable Roof, Suhail Andre Attending Unavailable Cebul, Tu Attending Unavailable SchinnerSuhail Referring Unavailable Cebul, Tu Attending Unavailable CebulTu Referring Unavailable Suhail Borges Primary Care Unavailable CebulTu Consulting Unavailable Teri Waggoner Attending Unavailable Keyanna Hankins Attending Unavailable Cebul, Tu Attending Unavailable CebulTu Referring Unavailable SchSuhail keen Primary Care Unavailable CeTu reed Consulting Unavailable Rachna Valladares PA-C Attending Unavailable Suhail Borges Referring Unavailable Cebul, Tu Attending Unavailable Merrill Perry Attending Unavailable Cebul, Tu Referring Unavailable Cebul, uT Attending Unavailable Rachna Valladares PA-C Attending Unavailable Suhail Borges Referring Unavailable Cebul, Tu Attending Unavailable Cebul, Tu Referring Unavailable SchSuhail keen Primary Care Unavailable Cebul, Tu Attending Unavailable Cebul, Tu Referring Unavailable Suhail Borges Primary Care Unavailable Cebul, Tu Attending Unavailable Suhail Borges Referring Unavailable SchSuhail keen Primary Care Unavailable Suhail Borges Attending Unavailable Suhail Borges Referring Unavailable SchSuhail keen Primary Care Unavailable Suhail Borges Attending Unavailable Suhail Borges Primary Care Unavailable Kike Rivera Attending Unavailable Primay Care Physicia, No Referring Unavailable SchSuhail keen Primary Care Unavailable Carolyn Alex Attending Unavailable Suhail Borges Attending Unavailable Suhail Borges Referring Unavailable SchSuhail keen Primary Care Unavailable Suhail Borges Attending Unavailable CeTu reed Attending Unavailable Kike Rivera Attending Unavailable Primay Care Physicia, No Primary Care Unavailable SchSuhail keen Attending Unavailable Suhail Borges Primary Care Unavailable SchinSuhail moran Attending Unavailable Suhail Borges Primary Care Unavailable Kike Rivera Attending Unavailable CeTu reed Attending Unavailable Celuisl, Tu Referring Unavailable Suhail Borges Primary Care Unavailable PROBLEMS PROBLEMS DATE TYPE CONDITION / CODE ATTENDING STATUS SOURCE 09/13/2018 Unknown K40.90 - Unilateral Cebul, Tu Active [facility] inguinal hernia, Community without obstruction Hospital or gangrene, not Repository specified as recurrent / K40.90(ICD-10) 09/13/2018 Unknown K64.4 - Residual CebulTu Active [place] hemorrhoidal skin Community tags / K64.4(ICD-10) Hospital Repository 08/23/2018 Unknown E87.6 - Hypokalemia CebulTu Active [facility] / E87.6(ICD-10) Community Hospital Repository 08/23/2018 Unknown G89.18 - Other acute CebulTu Active [place] postprocedural pain Community / G89.18(ICD-10) Hospital Repository 09/10/2018 Unknown I34.0 - Nonrheumatic Vicky, Beulah Active [place] mitral (valve) Community insufficiency / Hospital I34.0(ICD-10) Repository 09/10/2018 Unknown I10 - Essential Vicky, Merrill Active [facility] (primary) Community hypertension / Hospital I10(ICD-10) Repository 09/04/2018 Unknown Z12.11 - Encounter Cebumicheline Tu Active [place] for screening for Community malignant neoplasm [facility] colon / Repository Z12.11(ICD-10) 09/04/2018 Unknown K64.3 - Fourth Cebul, Tu Active [place] degree hemorrhoids / Community K64.3(ICD-10) Hospital Repository 09/04/2018 Unknown K57.30 - Cebul, Tu Active [facility] Diverticulosis of [facility] large intestine Hospital without perforation Repository or abscess without bleeding / K57.30(ICD-10) 07/25/2018 Unknown G62.9 - Suhail Borges Active [facility] Polyneuropathy, E Community unspecified / Hospital G62.9(ICD-10) Repository 04/11/2018 Unknown Z98.890 - Other Roof, Suhail Andre Active [facility] specified Community postprocedural Hospital states / Repository Z98.890(ICD-10) 04/11/2018 Unknown I31.3 - Pericardial Roof, Suhail Andre Active [place] effusion Community (noninflammatory) / Hospital I31.3(ICD-10) Repository 04/11/2018 Unknown R06.02 - Shortness Roof, Suhail Andre Active [place] of breath / Community R06.02(ICD-10) Hospital Repository 02/22/2018 Unknown I36.1 - Nonrheumatic Roof, Suhail Andre Active [place] tricuspid (valve) Community insufficiency / Hospital I36.1(ICD-10) Repository 02/22/2018 Unknown R33.9 - Retention of Roof, Suhail Andre Active [place] urine, unspecified / Community R33.9(ICD-10) Hospital Repository 01/29/2018 Unknown M79.674 - Pain in Balwinder Arshad Active [facility] right toe(s) / Community M79.674(ICD-10) Hospital Repository PROCEDURES PROCEDURES No Procedure Records FoundRESULTS RESULTS SURGERY VISIT REPORT Observed: 11/19/2018 Status: F Source: [place] 2:13 PM [facility] HOSPITAL REPOSITORY [facility] [address] [place] [address] [address] [place] [address] OFFICE VISIT Date of Service: 11/19/18 MR#: [id number] Acct: [id number] Name: CHRISTINE ANDREW Rep #: [id number] : 1965 Provider: Tu Munoz MD Age/Sex: 53/M Location: [facility] Status: Signed Intake Intake Visit Reasons: PO Hernia 11/07 Chief Complaint: post [facility] Dragline Operator Required: No Is patient in pain?: No Allergies latex Allergy (Verified 11/19/18 14:02) Unknown midazolam [From Versed] Adverse Reaction (Verified 11/19/18 14:02) Other Medications aspirin 81 mg tablet,delayed release 162 mg PO QDAY 12/19/17 [History Confirmed 11/07/18] amlodipine 5 mg tablet 5 mg PO QDAY 03/30/18 [History Confirmed 11/07/18] lisinopril 20 mg tablet 20 mg PO QDAY #90 tab 08/15/18 [Rx Confirmed 11/07/18] Cold-Eeze 1 tab PO PRN PRN 08/16/18 [History Confirmed 11/05/18] carvedilol 25 mg tablet 25 mg PO BID #180 tab 11/05/18 [Rx Confirmed 11/07/18] fluconazole 100 mg tablet 200 mg PO X1 #1 tab 11/05/18 [Rx] Subjective Details: 53-year-old gentleman. He is status post a Prem left inguinal herniorrhaphy that performed for him on August 23, 2018. That was actually quite a challenging procedure due to the degree of fibrous scar tissue present. I then on November 07 performed a staged Prem right inguinal herniorrhaphy for him. That was a direct right inguinal hernia. That seemed to proceed more expeditiously Objective Details: Well-healed surgical incision left groin. Supple, solid, nontender Fresh a healing transverse incision were right groin. Appropriate amount of induration. Nontender. Solid Assessment AND Plan Problems 1. Non-recurrent bilateral inguinal hernia without obstruction or gangrene K40.20 Plan 53-year-old gentleman who appears to be progressing very well status post staged left and then right inguinal herniorrhaphies with mesh. With his present we discussed activity and wound care expected shins. He has had an opportunity to ask and have questions answered. Further office follow-up now can be as needed. I anticipate a continued uncomplicated course. We did have to delay his right inguinal herniorrhaphy to allow for resolution of groin candidiasis which did respond well to treatment. CC: Dr Suhail Munoz M.D., F.A.C.S. Coding Level of Care Code Global Post Op Diagnoses Non-recurrent bilateral inguinal hernia without obstruction or gangrene K40.20 Obstruction and gangrene presence: without obstruction or gangrene Recurrence: non-recurrent 11/19/18 1413 <Electronically signed by Tu Munoz MD> Date uT Munoz MD [facility] Signature: Date (if applicable) CC: Suhail Borges MD DISCHARGE INSTRUCTION Observed: 11/08/2018 Status: F Source: QUANG 2:44 PM [facility] REPOSITORY [facility] Medical Records Department [address] [place] [address] Instructions for Home/Discharge Instructions 11/07/18 1504 MR#: [id number] Acct: [id number] Name: CHRISTINE ANDREW Rep #: [id number] : 1965 53 From: Tu Munoz MD PCP: Suhail Borges MD Status: DEP [facility] Discharge Diet: Light diet - advance as tolerated - if you have questions about your diet instructions, please talk to you doctor. Discharge Activity: May Not Drive - for 1 week or while taking narcotic pain medicine. May shower in (days): 1 Lifting Restrictions: 10 pounds Call your doctor if your incision/area has: Continuous Slow Oozing, Sudden Increased Bleeding, Increased Pain/ Swelling, Increased Redness, Foul Smelling Discharge Call your doctor if you observe: Fever of 101 or Higher Suture Line Care: Avoid Pulling/Pushing, Avoid Pinching/Bending Additional Dressing/Incision Instructions:: Change or remove dressing in 4 days. Leave steri-strips in place for 1 week. Allergies/Adverse Reactions: Allergies latex Allergy (Verified 11/05/18 10:06) Unknown midazolam [From Versed] Adverse Reaction (Verified 11/05/18 10:06) Other HARD TO WAKE Medications to take at Discharge aspirin 81 mg tablet,delayed release 162 mg PO QDAY 12/19/17 amlodipine 5 mg tablet 5 mg PO QDAY 03/30/18 lisinopril 20 mg tablet 20 mg PO QDAY #90 tab 08/15/18 Cold-Eeze 1 tab PO PRN PRN 08/16/18 carvedilol 25 mg tablet 25 mg PO BID #180 tab 11/05/18 fluconazole 100 mg tablet 200 mg PO X1 #1 tab 11/05/18 Primary Care Physician: Suhail Borges MD [Primary Care Provider] - Test Results: Test results from this visit will be discussed in further detail at your follow-up appointment, if applicable. Please Follow Up With: uT Munoz MD - [phone] When: Call to make an appointment to be seen in about 10 days. 11/08/18 1444 <Electronically signed by Tu Munoz MD> Date Tu Munoz MD CC: Suhail Borges MD OPERATIVE REPORT Observed: 11/07/2018 Status: F Source: [place] 4:05 PM [facility] Medical Records Department [address] [place] [address] Operative Report 11/07/18 1601 MR#: [id number] Acct: [id number] Name: CHRISTINE ANDREW Rep #: [id number] : 1965 53 From: Tu Munoz MD PCP: Suhail Borges MD Status: REG [facility] Y Location: [place] [address] Problem List (1) Reducible right inguinal hernia Status: Acute Report of Operation Date of Procedure: 11/07/18 Pre-Operative Diagnosis: Right inguinal hernia Post-Operative Diagnosis: Direct right inguinal hernia Surgery/Procedure Performed:: Prem right inguinal herniorrhaphy Description of Surgical Findings:: Timeout and informed consent was obtained. 53-year-old gentleman was taken to the operating room. He was placed on the table. He underwent monitored anesthesia care. Ancef 2 g given intravenously preoperatively. The right groin was sterilely prepped and draped. 1% lidocaine mixed 50-50 with 0.5% Marcaine was used as a local anesthetic. Of 4 cc was used. A transverse incision was made the right groin sharp dissection carried down through the subcu tissue hemostasis attained with electrocautery and 3-0 Vicryl ties. The external oblique was identified and incised along his fascia. The direct defect was identified. Circumferential control was obtained the cord structures. The inguinal nerve identified and protected. The pubic tubercle was identified dissected free the indirect space dissected free. I then used a running 3-0 Ethibond to secure the weakened transversalis fascia from the pubic tubercle to the internal ring. I utilized the Bard mesh preshaped keyhole size 10 x 4.5 cm. Lot number [employer] [id number]. Reference #[id number]. Expiry date 03/17/2023 to perform the repair. The mesh was placed in the position wrapped around the internal ring and secured there with interrupted 3-0 Ethibond. The tails were trimmed. The mesh was placed overlying the pubic tubercle and the direct space. I secured that then in place with multiple interrupted 3-0 Ethibond sutures. Excellent coverage and securement was achieved. The external oblique was reapproximated the right interrupted 3-0 Vicryl. There appeared to be good positional lie of the mesh good reduction of the hernia. The Osmani's fascia was approximated up to 3-0 Vicryl simple sutures. The skin edges approximated with a running septic or 4-0 Monocryl. Steri-Strips Telfa and OpSite dressings applied. Sponge and instrument and needle counts were reported to the surgeon be correct. Blood loss was minimal. He tolerated the procedure well was taken to the recovery area in satisfactory condition without complication. Specimens none. Drains none. Blood loss minimal Tu Munoz M.D., F.A.C.S. Type of Anesthesia:: Local MAC Anesthesiologist: Yahir Gandara 11/07/18 1605 <Electronically signed by Tu Munoz MD> Date Tu Munoz MD CC: Suhail Borges MD; Tu Munoz MD Signed SURGERY VISIT REPORT Observed: 11/05/2018 Status: F Source: [place] 1:25 PM [facility] REPOSITORY [facility] [address] [place] [address]. [address] [place] [address] OFFICE VISIT Date of Service: 11/05/18 MR#: [id number] Acct: [id number] Name: CHRISTINE ANDREW Rep #: [id number] : 1965 Provider: Rachna Valladares PA-C Age/Sex: 53/M Location: [facility] Status: Signed Intake Vital Signs11/05/18 Body Mass Index (BMI) 29.8 Intake Visit Reasons: recheck abdomen--rash/burn Allergies latex Allergy (Verified 11/05/18 10:06) Unknown midazolam [From Versed] Adverse Reaction (Verified 11/05/18 10:06) Other Medications aspirin 81 mg tablet,delayed release 162 mg PO QDAY 12/19/17 [History Confirmed 11/05/18] amlodipine 5 mg tablet 5 mg PO QDAY 03/30/18 [History Confirmed 11/05/18] carvedilol 25 mg tablet 25 mg PO BID #180 tab 03/30/18 [Rx Confirmed 11/05/18] lisinopril 20 mg tablet 20 mg PO QDAY #90 tab 08/15/18 [Rx Confirmed 11/05/18] Cold-Eeze 1 tab PO PRN PRN 08/16/18 [History Confirmed 11/05/18] fluconazole 100 mg tablet 200 mg PO X1 #1 tab 11/05/18 [Rx] Subjective Details: Patient is a 53 y/o male I am following for right inguinal hernia. Patient was cancelled due to fungal infection and razor burn during preparation. Patient has since taken single dose of Diflucan and Nystatin powder. He notes the fungal infection of the right groin has cleared up. Patient noted the razor burn has almost faded completely. He presents for a recheck. Objective Details: Right groin- fungal infection much improved. Lightly faded razor burn. No staph infection noted. Assessment AND Plan Problems 1. Right inguinal hernia K40.90 Plan - Follow-up post-operatively - Okay to proceed with open right inguinal hernia repair - Take Diflucan and use powder as instructed Coding Level of Care Code No Charge Diagnoses Right inguinal hernia K40.90 11/05/18 1325 <Electronically signed by Rachna Valladares PA-C> Date Rachna Valladares AYALA Gini Signature: Date (if applicable) CC: CBC-COMPLETE BLOOD CNT Collected: 10/24/2018 Status: F Source: QUANG NO DIFF 5:55 AM [facility] REPOSITORY TYPE CODE TESTS RESULT OUT OF RANGE REFERENCE UNITS LAB L100.1000 4.4-11.0 K/mm3 Normal WBC 8.0 LAB L100.1200 4.6-6.2 M/mm3 Low RBC 4.57 LAB L100.1300 13.0-16.5 g/dl Normal HGB 13.7 LAB L100.1400 40-54 % Normal HCT 41.0 LAB L100.1500 80-94 fL Normal MCV 89.7 LAB L100.1600 27.0-32.0 pg Normal MCH 30.0 LAB L100.1700 32-36 g/gl Normal MCHC 33.4 LAB L100.1810 11.6-14.6 % Normal RDW CV 12.8 LAB L100.1820 35.1-43.9 fl Normal RDW SD 41.5 LAB L100.1900 150-450 K/mm3 Normal PLT 182 LAB L100.2000 6.2-12.0 fl Normal MPV 9.6 Performed By: #### L100.0500 #### [facility] [place], [address] COMPREHENSIVE METABOLIC Collected: 10/23/2018 Status: F Source: QUANG PROFIL 1:55 PM [facility] REPOSITORY TYPE CODE TESTS RESULT OUT OF RANGE REFERENCE UNITS LAB L501.0100 74-106 mg/dL Normal GLU 97 Result Comment: Please note revised GLUCOSE reference range effective 2017. LAB L501.1000 7-18 mg/dL Normal BUN 18 LAB L501.1100 0.70-1.30 mg/dL Normal CREAT,SERUM 0.97 Result Comment: The validity of the calculated GFR AND GFRAA in patients over 70 years has not been determined. Clinical correlation is essential. LAB L501.1110 >60 mL/min Normal EST GFR 86 Result Comment: Non- GFR Calc LAB L501.1115 >60 mL/min Normal EST GFR - AA 104 Result Comment: GFR Calc LAB L501.1300 10-20 RATIO Normal BUN/CRE 18.5 LAB L501.1500 6.4-8.2 g/dL T Normal PROT 8.1 LAB L501.1800 3.2-5.0 g/dL Normal ALB 4.3 LAB L501.1950 2.2-4.2 g/dL Normal GLOB 3.8 LAB L501.2000 0.9-2.4 RATIO Normal A/G 1.1 LAB L501.2200 8.5-10.1 mg/dL CA Normal 9.5 LAB L501.4100 15-37 U/L Normal AST 22 LAB L501.4305 45-117 U/L Normal ALK P 98 LAB L501.4405 16-61 U/L Normal ALT 41 LAB L501.4600 0.20-1.00 mg/dL High T BILI 1.10 LAB L501.5300 136-145 mmol/L NA Normal 141 LAB L501.5600 3.5-5.1 mmol/L K Normal 4.1 LAB L501.5900 98-107 mmol/L CL Normal 104 LAB L501.6100 21.0-32.0 mmol/L Normal CO2 30.0 LAB L501.6200 5-15 Normal GAP 7 Performed By: #### L500.4050 #### [facility] [address] [place], [address] HEMOGLOBIN A1C Collected: 10/23/2018 Status: F Source: [place] 1:55 PM [facility] REPOSITORY TYPE CODE TESTS RESULT OUT OF RANGE REFERENCE UNITS LAB L501.9985 4.2-6.3 % Normal HGB A1C 5.1 Performed By: #### L501.9985 #### [facility] [address] [place], [address] SURGERY VISIT REPORT Observed: 10/17/2018 Status: F Source: [place] 3:30 PM [facility] REPOSITORY [facility] [address] [place] [address] OFFICE VISIT Date of Service: 10/17/18 MR#: [id number] Acct: [id number] Name: CHRISTINE ANDREW Rep #: [id number] : 1965 Provider: Rachna Valladares PA-C Age/Sex: 53/M Location: [facility] Status: Signed Intake Vital Signs10/17/18 Body Mass Index (BMI) 29.5 10/17/18 Height 5 ft 8 in 10/17/18 Weight: 191 lb 5 oz 10/17/18 Body Mass Index (BMI) 29.0 10/17/18 Blood Pressure 144/79 H 10/17/18 Blood Pressure Location Lt brachial Intake Visit Reasons: Update H AND P Hernia Surgery [facility] Chief Complaint: UPDATE H AND P FOR OPEN [facility]IH Dragline Operator Required: No Is patient in pain?: No Allergies latex Allergy (Verified 10/17/18 12:55) Unknown midazolam [From Versed] Adverse Reaction (Verified 10/17/18 12:55) Other Medications aspirin 81 mg tablet,delayed release 162 mg PO QDAY 12/19/17 [History Confirmed 10/17/18] amlodipine 5 mg tablet 5 mg PO QDAY 03/30/18 [History Confirmed 10/17/18] carvedilol 25 mg tablet 25 mg PO BID #180 tab 03/30/18 [Rx Confirmed 10/17/18] lisinopril 20 mg tablet 20 mg PO QDAY #90 tab 08/15/18 [Rx Confirmed 10/17/18] Cold-Eeze 1 tab PO PRN PRN 08/16/18 [History Confirmed 10/17/18] potassium chloride ER 20 mEq tablet,extended release 20 meq PO TID #26 tab 08/17/18 [Rx Confirmed 10/17/18] PFSH Medical History Bilateral inguinal hernia (Acute) Nonrheumatic mitral (valve) insufficiency (Chronic) Nonrheumatic tricuspid (valve) insufficiency (Chronic) Urinary retention (Resolved) SOB (shortness of breath) (Resolved) Lower extremity edema (Resolved) MVP (mitral valve prolapse) (Resolved) Pulmonary edema (Resolved) Mitral regurgitation (Resolved) Surgical History Hx of left inguinal hernia repair (Acute) 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 Patient had a left inguinal hernia repair on 08/23/[address] Munoz. He notes completely healed from this surgery. Patient notes yesterday he had put the leg rest of the chair down with his feet for the first time without thinking and noted discomfort of the left groin. He notes the discomfort has resolved. Patient denies hospitalization or illness since the last operation. He is now ready to schedule for a right inguinal hernia repair. Patient's previous history per Dr. Munoz: CHRISTINE ANDREW, is a 52 M who presents to the office today for surgical consultation regarding a progressively enlarging 15 year history of a left inguinal hernia. The patient is referred by his primary care physician Dr Suhail Borges and a written copy of my surgical consult will return to Dr Suhail Borges. The patient has recently undergone mitral valve repair and tricuspid valve repair and left atrial appendage exclusion. He has been performing well since then. November 09, 2017 ejection fraction 56%. He is able to climb a flight of stairs. He denies chest pain or shortness of breath. He was hospitalized prior to that valve repair with congestive heart failure and superoinferior pulmonary hypertension systemic hypertension and hyperlipidemia. At age 52 has never had a colonoscopy. States that he has had this left inguinal hernia for at least 15 years. He is still able to reduce it. He does not notice any bright red blood per rectum or melena. He did state that during his cardiac workup he had a CARLOS and was given Versed became unresponsive and required reversal with flumazenil (Romazicon). He denies DVT. 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 ROS General General: No weight change, appetite, fatigue, colon cancer, breast cancer or weakness HEENT HEENT: No difficulty swallowing, eye injury, eye surgery, swollen glands or hoarseness Endo Endocrine: No thyroid disease, diabetes mellitus, thyroid cancer, Hair loss, heat intolerance or cold intolerance Skin Skin: No rash or changing moles Breast Breast: No left breast lump, right breast lump, nipple discharge, breast pain, abnormal mammogram, abnormal US or breast enlargement Musc Musculoskeletal: No back problems, arthritis, rheumatoid arthritis, gout or joint pain Cardio Cardiovascular: Yes murmur and high blood pressure; no pacemaker, heart disease, atrial fibrillation, heart attack, heart stent, palpitations, shortness of breat with exertion or chest pain Psych Psychiatric: No depression, anxiety or hearing voices Resp Respiratory: No shortness of breath, No sleep apnea, No cough, No COPD, No asthma, No emphysema, No wheezing Gastro Gastrointestinal: No abdominal pain, No nausea or vomiting, Yes diarrhea, No constipation, No blood in stool, No acid reflux, Yes hemorrhoids, No ulcers, No gallbladder problem, No black,tarry stools Samuel Hematologic: Yes blood thinners, No blood disorders, No bleeding, No anemia, No blood clots Neuro Neurologic: No weakness Exam Const General: cooperative, healthy appearing, comfortable, no acute distress [facility] Head: normal to inspection Eyes General: appearance normal, both eyes and all related structures Neck Neck: normal visual inspection Neck mass: No Chest Breast Palpation: No nipple discharge Resp Effort AND Inspection: normal respiratory effort Auscultation: clear to auscultation bilaterally Cardio Rate: regular rate Rhythm: regular rhythm Heart Sounds: murmur GI Inspection: normal to inspection, incision (left inguinal incision nicely healed. No recurrent hernia noted.) Palpation: soft, hernia (Small right inguinal hernia) Auscultation: normal bowel sounds Skin General: no rashes or lesions noted Neuro General: no focal motor deficits, CN's II-XI intact bilaterally Extrem General: normal to inspection Psych Appearance: grossly normal Affect: normal affect Assessment AND Plan Problems 1. Hx of left inguinal hernia repair Z98.890; Z87.19 08/23/18 2. Right inguinal hernia K40.[address] Munoz will plan to perform an open right inguinal hernia repair with mesh. Procedure details, risks and benefits have been reviewed. Patient and his have had the opportunity to ask and have questions answered. Patient verbally understands and agrees with the plan. Coding Level of Care Code No Charge Diagnoses Hx of left inguinal hernia repair Z98.890; Z87.19 Right inguinal hernia K40.90 Comment Update H AND P 10/17/18 7530 <Electronically signed by Rachna Valladares PA-C> Date Rachna Valladares PA-C Cosigner Signature: Date (if applicable) CC: Suhail Borges MD SURGERY VISIT REPORT Observed: 09/04/2018 Status: F Source: [place] 12:43 PM [facility] REPOSITORY [facility] [address] [place] [address]. [address] [place] [address] OFFICE VISIT Date of Service: 09/03/18 MR#: [id number] Acct: [id number] Name: CHRISTINE ANDREW Rep #: [id number] : 1965 Provider: Rachna Valladares PA-C Age/Sex: 52/M Location: [facility] Status: Signed Intake Intake Visit Reasons: L Inguinal Hernia RC 08/23 Chief Complaint: Routine f/u Allergies latex Allergy (Verified 08/16/18 14:38) Unknown midazolam [From Versed] Adverse Reaction (Verified 08/16/18 14:38) Other Medications aspirin 81 mg tablet,delayed release 162 mg PO QDAY 12/19/17 [History Confirmed 08/16/18] amlodipine 5 mg tablet 5 mg PO QDAY 03/30/18 [History Confirmed 08/16/18] carvedilol 25 mg tablet 25 mg PO BID #180 tab 03/30/18 [Rx Confirmed 08/16/18] lisinopril 20 mg tablet 20 mg PO QDAY #90 tab 08/15/18 [Rx Confirmed 08/16/18] Cold-Eeze 1 tab PO PRN PRN 08/16/18 [History Confirmed 08/16/18] potassium chloride ER 20 mEq tablet,extended release 20 meq PO TID #26 tab 08/17/18 [Rx Confirmed 08/23/18] Subjective Details: Patient is a 52 y/o male I am following for left inguinal hernia. Dr. Munoz performed an open left inguinal hernia repair on 08/23/2018. Patient tolerated the procedure well. Patient notes minimal amount of incisional discomfort. He denies drainage. He notes moderate amount of swelling at the incision. He notes moderate amount of swelling in the left scrotal region. Objective Details: Left groin- incision c/d/i. Moderate amount of swelling noted. Minimal amount of left scrotal swelling. Assessment AND Plan Problems 1. Non-recurrent bilateral inguinal hernia without obstruction or gangrene K40.20 Plan - No lifting greater than 20 pounds for 7 weeks - Follow-up in 1 month for update H AND P for open right inguinal hernia repair. Coding Level of Care Code Global Post Op Diagnoses Non-recurrent bilateral inguinal hernia without obstruction or gangrene K40.20 Obstruction and gangrene presence: without obstruction or gangrene Recurrence: non-recurrent 09/04/18 1243 <Electronically signed by Rachna Valladares PA-C> Date Rachna Valladares PA-C Cosigner Signature: Date (if applicable) CC: DISCHARGE INSTRUCTION Observed: 08/24/2018 Status: F Source: [place] 6:11 AM [facility] REPOSITORY [facility] Medical Records Department [address] [place] [address] Instructions for Home/Discharge Instructions 08/23/18 1343 MR#: [id number] Acct: [id number] Name: CHRISTINE ANDREW Rep #: [id number] : 1965 52 From: Tu Munoz MD PCP: Suhail Borges MD Status: DEP [facility] Discharge Diet: Light diet - advance as tolerated - if you have questions about your diet instructions, please talk to you doctor. Discharge Activity: May Not Drive - for 1 week or while taking narcotic pain medicine. May shower in (days): 1 Lifting Restrictions: 10 pounds Call your doctor if your incision/area has: Continuous Slow Oozing, Sudden Increased Bleeding, Increased Pain/ Swelling, Increased Redness, Foul Smelling Discharge Call your doctor if you observe: Fever of 101 or Higher Suture Line Care: Avoid Pulling/Pushing, Avoid Pinching/Bending Additional Dressing/Incision Instructions:: Change or remove dressing in 4 days. Leave steri-strips in place for 1 week. Allergies/Adverse Reactions: Allergies latex Allergy (Verified 08/16/18 14:38) Unknown midazolam [From Versed] Adverse Reaction (Verified 08/16/18 14:38) Other HARD TO WAKE Medications to take at Discharge aspirin 81 mg tablet,delayed release 162 mg PO QDAY 12/19/17 amlodipine 5 mg tablet 5 mg PO QDAY 03/30/18 carvedilol 25 mg tablet 25 mg PO BID #180 tab 03/30/18 lisinopril 20 mg tablet 20 mg PO QDAY #90 tab 08/15/18 Cold-Eeze 1 tab PO PRN PRN 08/16/18 potassium chloride ER 20 mEq tablet,extended release 20 meq PO TID #26 tab 08/17/18 Hydrocodone Bitart/Apap 5-325 [Fulton 5MG-325MG] 1 tablet PO Q6H PRN PRN 3 Days #8 tablet 08/23/18 The following prescriptions were given: Hydrocodone Bitart/Apap 5-325 [Fulton 5MG-325MG] 1 tablet PO Q6H PRN PRN 3 Days #8 tablet PRN Reason: Pain Primary Care Physician: Suhail Borges MD [Primary Care Provider] - Test Results: Test results from this visit will be discussed in further detail at your follow-up appointment, if applicable. Please Follow Up With: Tu Munoz MD - [phone] When: Call to make an appointment to be seen in about 10 days. 08/24/18 0611 <Electronically signed by Tu Munoz MD> Date Tu Munoz MD CC: Suhail Borges MD OPERATIVE REPORT Observed: 08/24/2018 Status: F Source: [place] 6:11 AM [facility] REPOSITORY [facility] Medical Records Department [address] [place] [address] Operative Report 08/23/18 1516 MR#: [id number] Acct: [id number] Name: CHRISTINE ANDREW Rep #: [id number] : 1965 52 From: Tu Munoz MD PCP: Suhail Borges MD Status: DEP [facility] [place] Location: [facility] Problem List (1) Bilateral inguinal hernia Status: Acute Qualifiers: Obstruction and gangrene presence: without obstruction or gangrene Recurrence: non-recurrent Qualified Code(s): K40.20 - Bilateral inguinal hernia, without obstruction or gangrene, not specified as recurrent Report of Operation Date of Procedure: 08/23/18 Pre-Operative Diagnosis: Large left inguinal hernia, left perianal external hemorrhoidal tag Post-Operative Diagnosis: Large direct and indirect left inguinal hernia, left perianal external hemorrhoidal tag Surgery/Procedure Performed:: Prem left inguinal herniorrhaphy. Excision left perianal external hemorrhoidal tag. Part preshaped keyhole. 10 x 4.5 cm. Lot number EMERG[employer]Y MEDICAL TECHNICIAN BASIC and 1336. Reference #[id number]. Expiry date 01/17/2023. Description of Surgical Findings:: Timeout informed consent was obtained. 52-year-old gent was taken out from placement table. He underwent monitored anesthesia care. The left groin was sterilely prepped and draped. 1% lidocaine mixed 50-50 with 0.5% was used as a local anesthetic. Throughout the procedure total of 30 cc was used. Local was instilled. A transverse incision was made the left groin. Sharp dissection carried down through the substance tissue. Electrocautery was used for hemostasis. The inguinal defect was significant with complete disruption of the floor of the inguinal canal. The dissection was extraordinarily difficult and tedious. There were hypertrophic cremasteric fibers. Careful control was obtained at the pubic tubercle the cord structures and a Deanna drain was placed. Tediously the sac was dissected free from the cord structures. Were needed hemostasis obtained with 3-0 Vicryl ligatures and electrocautery. The sac was eventually dissected free to the internal ring. It could be then inverted. Dissection was performed medially overlying the pubic tubercle. The transversalis fascia was then approximated to itself with a running 3-0 Ethibond. There was complete lack of integrity of the inguinal floor. Suture was carried from the pubic tubercle to the internal ring. Then a Bard mesh preshaped keyhole 10 x 4.5 cm was selected. This wrapped around the internal ring cord structures and secured to its to itself laterally with 3-0 Ethibond. He was placed so as to lie beneath the external oblique laterally and overlying the pubic tubercle. It was then meticulously secured in place with multiple interrupted 3- 0 Ethibond sutures. Good coverage and securement was felt to have been achieved. It is of note that because of all the hypertrophic tissue had to transect the cremasteric fibers completely circumferentially around the cord structures at this point because of the degree of dissection potentially sacrifice the inguinal nerve. Todd however that the completion of procedure I had good coverage of the inguinal defect. The external oblique was approximated with a running 3-0 Vicryl. Then the subcutaneous tissue approximated with the same. The skin edges proximate running septic or 4-0 Monocryl. Steri-Strips Telfa and OpSite dressings applied. He was then placed in a lithotomy position in the perianal tag the left of the anus was treated with Betadine and then local anesthetic. Electrocautery was used to simply amputate this at the base. That specimen is submitted for analysis. Vaseline gauze dressing applied. Sponge and instrument and needle counts were reported the surgeon for correct. Specimen includes a hypertrophic cremasteric fibers for the inguinal hernia and a hemorrhoidal tag. Drains none. Blood loss minimal. He was taken to the recovery area in satisfactory condition without apparent complication Tu Munoz M.D., F.A.C.S. Type of Anesthesia:: Local MAC Anesthesiologist: Ck Singh 08/24/18 0611 <Electronically signed by Tu Munoz MD> Date Tu Munoz MD CC: Suhail Borges MD; Tu Munoz MD Signed HERNIA Observed: 08/23/2018 Status: F Source: [place] 1:00 PM [facility] REPOSITORY Patient: CHRISTINE ANDREW : 1965 (52/M) Acct Num: [id number] Phys: Alexander LYLES,Tu Unit Num: [id number] Loc: [facility] Specimen: [id number] Received: 08/24/18830 Spec Type: Hernia TISSUES 1 TISSUES: A. HERNIA B. Anal region GROSS DESCRIPTION A - Received in fixative is one container labeled with the patient's name and designated cremasteric hernia fibers. The specimen consists of a piece of whaley -pink soft tissue measuring 6 x 2 x 0.5 cm. No mass lesion is identified. Quality Associate sections are submitted in one cassette. B - Received in fixative is one container labeled with the patient's name and designated anal tag. The specimen consists of a polypoid piece of whaley-white skin measuring 1.3 x 1 x 0.9 cm. The specimen is inked, bisected and submitted entirely in one cassette. / SJ:aung 08/24/18 TC:5 CPT: 32181, 02020 HEADER OPERATION: Left inguinal hernia repair with mesh; excision anal tag PRE-OP DIAGNOSIS: Nonrecurrent bilateral inguinal hernia without obstruction or gangrene; anal tag TISSUE SUBMITTED: A - Cremasteric hernia fibers, B - Anal tag MICROSCOPIC DESCRIPTION Slides are reviewed. MICROSCOPIC DIAGNOSIS A. Cremasteric hernia fibers: Fragments of fibroadipose tissue and adjacent skeletal muscle tissue. B. Anal tag, biopsy: Inflamed fibroepithelial polyp (skin tag). SJ:aung 08/27/18 Signed Kenny Martinez 08/27/18 <signature on file> Performed By: #### PHERN #### [place] [facility] [address] [place], [address] POTASSIUM Collected: 08/23/2018 Status: F Source: [place] 12:15 PM [facility] REPOSITORY TYPE CODE TESTS RESULT OUT OF RANGE REFERENCE UNITS LAB L501.5600 3.5-5.1 mmol/L Normal K 4.4 Result Comment: Slight Hemolysis, Result may be falsely increased. Performed By: #### L501.5600 #### [facility] [address] [place], [address] 12 LEAD ELECTROCARDIOGRAM Observed: 08/21/2018 Status: F Source: [place] 2:46 PM [facility] REPOSITORY [facility] Cardiovascular Services [address] [place] [address] 12 Lead EKG 08/17/18 0847 MR#: [id number] Acct: [id number] Name: CHRISTINE ANDREW Rep #: [id number] : 1965 52 From: Merrill Perry MD Attending Dr: Tu Munoz MD Status: PRE [facility] Ordering Dr: Tu Munoz MD Date: 08/17/18 Location: [facility] Sex: M C Admitted: Test Reason : Blood Pressure : / mmHG Vent. Rate : 062 BPM Atrial Rate : 062 BPM P-R Int : 184 ms QRS Dur : 106 ms QT Int : 438 ms P-R-T Axes : 052 043 076 degrees QTc Int : 444 ms Normal sinus rhythm Normal ECG Confirmed by VICKY LYLES, MERRILL ([id number]), editor map COLBY YANCEY ([id number]) on 08/21/2018 2:46:37 PM Referred By: Tu Munoz Confirmed By:MERRILL PERRY MD 08/21/18 1446 Date Merrill Perry MD CC: Suhail Borges MD; Tu Munoz MD Signed HISTORY AND PHYSICAL Observed: 08/17/2018 Status: F Source: [place] EXAM 7:07 PM [facility] REPOSITORY [facility] Medical Records Department [address] [place] [address] History and Physical 08/17/18 0755 MR#: [id number] Acct: [id number] Name: CHRISTINE ANDREW Rep #: [id number] : 1965 52 From: Tu Munoz MD PCP: Suhail Borges MD Status: DEP [facility] Y Location: [place] Problem List (1) Screening for intestinal cancer Status: Acute History of Present Illness Date of Admission: 08/17/18 The patient is a 52 year old M who presents for screening colonoscopy. He has never had a similar event. He denies bright red blood per rectum or melena. He denies any family history of colon polyps or colon cancer. October 2017 he had heart surgery. He is performing well since then. He is on iron 62 mg of aspirin per day. He did not take that today. He otherwise feels that he is in good health. 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) With a #44 mm AtriCure clip on 11/05/2017 @ [facility] Nonrheumatic mitral (valve) insufficiency (Chronic) s/p repair 10/2017 @ [facility]; Nonrheumatic tricuspid (valve) insufficiency (Chronic) s/p repair 10/2017 @ [facility] S/P tricuspid valve repair (Chronic 11/02/17) With 34 mm Grigsby MC3 band 11/02/17 at [facility] S/P mitral valve repair (Chronic 11/02/17) With a triangular section P2 angioplasty with a 34 mm Samira band 11/02/2017 at [facility] Medical History: Medical History (Last Reviewed 08/06/18 @ 14:05 by Romina Khan) Bilateral inguinal hernia (Acute) K40.20 Nonrheumatic mitral (valve) insufficiency (Chronic) I34.0 s/p repair 10/2017 @ [facility]; Nonrheumatic tricuspid (valve) insufficiency (Chronic) I36.1 s/p repair 10/2017 @ [facility] Mitral regurgitation (Resolved) I34.0 repair 11/05/2017 @ [facility]; Lower extremity edema R60.0 MVP (mitral valve prolapse) I34.1 Pulmonary edema J81.1 SOB (shortness of breath) R06.02 Urinary retention R33.9 post valve repair surgery 10/2017; Allergies latex Allergy (Verified 08/16/18 14:38) Unknown midazolam [From Versed] Adverse Reaction (Verified 08/16/18 14:38) Other HARD TO WAKE Home Medications: Ambulatory Orders Medication Instructions Recorded aspirin 81 mg tablet,delayed 162 mg PO QDAY 12/19/17 release Surgical History: Surgical History (Last Reviewed 08/06/18 @ 14:05 by Romina Khan) Left atrial appendage exclusion (Chronic) Onset Date: 11/02/17 With a #44 mm AtriCure clip on 11/05/2017 @ [facility] S/P tricuspid valve repair (Chronic) Onset Date: 11/02/17 Z98.890 With 34 mm Grigsby MC3 band 11/02/17 at [facility] S/P mitral valve repair (Chronic) Onset Date: 11/02/17 Z98.890 With a triangular section P2 angioplasty with a 34 mm Samira band 11/02/2017 at [facility] Surgical History: no surgical history Smoking Status: Never smoker - *Family History Maternal Family History: Family History (Last Updated 08/06/18 @ 14:05 by Romina Khan) Mother Diabetes Atrial fibrillation Father Hypertension Brother Hypertension Grandfather Diabetes History Items: Diabetes Paternal Family History: Family History (Last Updated 08/06/18 @ 14:05 by Romina Khan) Mother Diabetes Atrial fibrillation Father Hypertension Brother Hypertension Grandfather Diabetes History Items: Hypertension Sibling Family History: Family History (Last Updated 08/06/18 @ 14:05 by Romina Khan) Mother Diabetes Atrial fibrillation Father Hypertension Brother Hypertension Grandfather Diabetes History Items: Hypertension Review of Systems Constitutional: Denies: Anorexia Eyes: Denies: Blurred vision HEENT: Denies: Difficulty Hearing Cardiovascular: Denies: Chest Pain Respiratory: Denies: Cough Gastrointestinal: Denies: Abdominal Pain Genitourinary: Denies: Dysuria Musculoskeletal: Denies: Arm Pain Psychiatric: Denies: Anxiety Endocrine: Denies: Change in Body Habitus VTE Information - Inpt Only VTE Present on Admission: No Patient Problems: Active and Suspected Problems (Last Reviewed 08/06/18 @ 14:05 by Romina Khan) Screening for intestinal cancer (Acute) - Physical Exam General: Alert, Oriented x3, Cooperative, No apparent distress HEENT: Atraumatic Oral: Moist Mucosa Neck: Supple Lungs: Clear to auscultation Cardiovascular: Regular rate Abdomen: Bowel Sounds Present, Soft, Non Tender Extremities: No clubbing Musculoskeletal: No Tenderness to Palpation of Joints or Extremities Lymphatic: No Cervical, Supraclavicular, or Inguinal Adenopathy Neurological: Cranial nerves II-XII grossly intact Vital Signs Temp Pulse Resp BP Pulse Ox 98.2 F 70 14 147/89 H 98 08/17/18 07:06 08/17/18 07:06 08/17/18 07:06 08/17/18 07:06 08/17/18 07:06 Oxygen Delivery Method Room Air Weight: 189 lb 9.561 oz Body Mass Index (BMI) 28.8 Assessment/Plan All Active Problems (Last Reviewed 08/06/18 @ 14:05 by Romina Khan) Screening for intestinal cancer (Acute) Bilateral inguinal hernia (Acute) Gouty arthritis of right great toe (Acute) Pain in right toe(s) (Acute) Mitral regurgitation (Resolved) SOB (shortness of breath) on exertion (Acute) Mitral regurgitation (Acute) Pulmonary edema (Acute) Mitral valve prolapse (Acute) Lower extremity edema (Acute) Screening colonoscopy with possible biopsy or polypectomy is indicated. The patient is aware of the technique, benefits, risks and alternatives. We have scheduled and will proceed as indicated. Primary care physician is Dr Suhail Munoz M.D., F.A.C.S. 08/17/187 <Electronically signed by Tu Munoz MD> Date Tu Munoz MD Cosigner Signature: Date (if applicable) CC: Suhail Borges MD; Tu Munoz MD Signed CBC-COMPLETE BLOOD CNT Collected: 08/17/2018 Status: F Source: [place] NO DIFF 8:40 AM [facility] REPOSITORY Order Comment: Comments: for surgery 08/23 TYPE CODE TESTS RESULT OUT OF RANGE REFERENCE UNITS LAB L100.1000 4.4-11.0 K/mm3 Normal WBC 5.6 LAB L100.1200 4.6-6.2 M/mm3 Low RBC 4.25 LAB L100.1300 13.0-16.5 g/dl Low HGB 12.5 LAB L100.1400 40-54 % Low HCT 37.3 LAB L100.1500 80-94 fL Normal MCV 87.8 LAB L100.1600 27.0-32.0 pg Normal MCH 29.4 LAB L100.1700 32-36 g/gl Normal MCHC 33.5 LAB L100.1810 11.6-14.6 % Normal RDW CV 12.7 LAB L100.1820 35.1-43.9 fl Normal RDW SD 40.8 LAB L100.1900 150-450 K/mm3 Low PLT 125 LAB L100.2000 6.2-12.0 fl Normal MPV 9.5 Performed By: #### L100.0500 #### [facility] [address] [place], [place], [address] BASIC METABOLIC Collected: 08/17/2018 Status: F Source: [facility]ANG PROFILE (BMP) 8:40 AM [facility] REPOSITORY Order Comment: Comments: for surgery 08/23 TYPE CODE TESTS RESULT OUT OF RANGE REFERENCE UNITS LAB L501.0100 74-106 mg/dL Normal GLU 98 Result Comment: Please note revised GLUCOSE reference range effective 2017. LAB L501.1000 7-18 mg/dL Normal BUN 13 LAB L501.1100 0.70-1.30 mg/dL Normal CREAT,SERUM 0.88 Result Comment: The validity of the calculated GFR AND GFRAA in patients over 70 years has not been determined. Clinical correlation is essential. LAB L501.1110 >60 mL/min Normal EST GFR 96 Result Comment: Non- GFR Calc LAB L501.1115 >60 mL/min Normal EST GFR - AA 117 Result Comment: GFR Calc LAB L501.1300 10-20 RATIO Normal BUN/CRE 14.8 LAB L501.2200 8.5-10.1 mg/dL CA Normal 8.7 LAB L501.5300 136-145 mmol/L NA Normal 139 LAB L501.5600 3.5-5.1 mmol/L Low K 3.1 LAB L501.5900 98-107 mmol/L CL Normal 107 LAB L501.6100 21.0-32.0 mmol/L Normal CO2 25.0 LAB L501.6200 5-15 Normal GAP 7 Performed By: #### L500.2500 #### [facility] [address] [place], [address] OPERATIVE REPORT - Observed: 08/17/2018 Status: F Source: [facility] ENDOSCOPY 8:25 AM [facility] REPOSITORY [facility] Medical Records Department [address] [place] [address] Operative Report - Endoscopy MR#: [id number] Acct: [id number] Name: CHRISTINE ANDREW Rep #: [id number] : 1965 52 From: Tu Munoz MD PCP: Suhail Borges MD Status: REG [facility] [place] Patient Name: Christine Andrew Procedure Date: 08/17/2018 7:45 AM Date of : 1965 Age: 52 Procedure: Colonoscopy Indications: Screening for colorectal malignant neoplasm Providers: Tu Munoz MD Referring MD: Tu Munoz MD Medicines: See the Anesthesia note for documentation of the administered medications Patient Profile: Last Colonoscopy: none. The patient's first colonoscopy is today. Complications: No immediate complications. Procedure: Pre-Anesthesia Assessment: - Prior to the procedure, a History and Physical was performed, and patient medications and allergies were reviewed. The patient's tolerance of previous anesthesia was also reviewed. The risks and benefits of the procedure and the sedation options and risks were discussed with the patient. All questions were answered, and informed consent was obtained. Prior Anticoagulants: The patient has taken aspirin, last dose was day of procedure. ASA Grade Assessment: II - A patient with mild systemic disease. After reviewing the risks and benefits, the patient was deemed in satisfactory condition to undergo the procedure. After I obtained informed consent, the scope was passed under direct vision. Throughout the procedure, the patient's blood pressure, pulse, and oxygen saturations were monitored continuously. The colonoscope was introduced through the anus and advanced to the cecum, identified by appendiceal orifice and ileocecal valve. The colonoscopy was performed with moderate difficulty due to a tortuous colon. Successful completion of the procedure was aided by applying abdominal pressure. The patient tolerated the procedure well. The quality of the bowel preparation was good. Scope In: 8:05:03 AM Scope Withdrawal Time 0 hours 6 minutes 2 seconds Scope Out: 8:18:05 AM Total Procedure Duration Time 0 hours 13 minutes 2 seconds Findings: The digital rectal exam findings include external hemorrhoids with long fibrous tag on left that is 3cm long]. Multiple diverticula were found in the sigmoid colon and descending colon. The exam was otherwise without abnormality. Impression: - Internal hemorrhoids that do not return to the anal canal, thus continuously prolapsed (Grade IV) found on digital rectal exam. - Diverticulosis in the sigmoid colon and in the descending colon. - The examination was otherwise normal. - No specimens collected. Recommendation: - Discharge patient to home. - Resume previous diet. - Continue present medications. - Repeat colonoscopy in 10 years for screening purposes. Procedure Code(s): --- Professional --- 89705, Colonoscopy, flexible; diagnostic, including collection of specimen(s) by brushing or washing, when performed (separate procedure) Diagnosis Code(s): --- Professional --- Z12.11, Encounter for screening for malignant neoplasm of colon K64.3, Fourth degree hemorrhoids K57.30, Diverticulosis of large intestine without perforation or abscess without bleeding CPT copyright 2017 [employer]. All rights reserved. The codes documented in this report are preliminary and upon cargoman review may be revised to meet current compliance requirements. Tu Munoz MD 08/17/2018 8:25:22 AM This report has been signed electronically. Number of Addenda: 0 Note Initiated On: 08/17/2018 7:45 AM 08/17/18 0825 Date Tu Munoz MD Cosigner Signature: Date (if indicated) CC: Suhail Borges MD; Tu Munoz MD Date Dictated: 08/17/18 0745 Date Transcribed: Wastewater Plant Operator: FLEX Signed SURGERY VISIT REPORT Observed: 08/06/2018 Status: F Source: [facility] 5:29 PM [facility] REPOSITORY [facility] [address] [place], [place] [id number] OFFICE VISIT Date of Service: 08/06/18 MR#: [id number] Acct: [id number] Name: CHRISTINE ANDREW Rep #: [id number] : 1965 Provider: Tu Munoz MD Age/Sex: 52/M Location: [facility] Status: Signed Intake Vital Signs08/06/18 Height 5 ft 8 in 08/06/18 Weight: 191 lb Intake Visit Reasons: L Inguinal Hernia Chief Complaint: Routine f/u Dragline Operator Required: No Is patient in pain?: No Allergies latex Allergy (Verified 08/06/18 14:07) Unknown Medications aspirin 81 mg tablet,delayed release 81 mg PO QDAY 12/19/17 [History Confirmed 08/06/18] lisinopril 20 mg tablet 20 mg PO QDAY 02/12/18 [History Confirmed 08/06/18] amlodipine 5 mg tablet 5 mg PO QDAY 03/30/18 [History Confirmed 08/06/18] carvedilol 25 mg tablet 25 mg PO BID #180 tab 03/30/18 [Rx Confirmed 08/06/18] amoxicillin 500 mg capsule 500 mg PO .COMPLEX 06/26/18 [History Confirmed 08/06/18] gabapentin 100 mg capsule 300 mg PO TID cap 08/06/18 [History Confirmed 08/06/18] PFSH Medical History Nonrheumatic mitral (valve) insufficiency (Chronic) Nonrheumatic tricuspid (valve) insufficiency (Chronic) Mitral regurgitation (Resolved) Lower extremity edema (Resolved) MVP (mitral valve prolapse) (Resolved) Pulmonary edema (Resolved) SOB (shortness of breath) (Resolved) Urinary retention (Resolved) Surgical History Left atrial appendage exclusion (Chronic 11/02/17) S/P tricuspid valve repair (Chronic 11/02/17) S/P mitral valve repair (Chronic 11/02/17) Family History Mother Diabetes Atrial fibrillation Father Hypertension Brother Hypertension Grandfather Diabetes Social History Smoking Status: Never smoker alcohol intake: never substance use type: does not use HPI HPI HPI: CHRISTINE ANDREW, is a 52 M who presents to the office today for surgical consultation regarding a progressively enlarging 15 year history of a left inguinal hernia. The patient is referred by his primary care physician Dr Suhail Borges and a written copy of my surgical consult will return to Dr Suhail Borges. The patient has recently undergone mitral valve repair and tricuspid valve repair and left atrial appendage exclusion. He has been performing well since then. November 09, 2017 ejection fraction 56%. He is able to climb a flight of stairs. He denies chest pain or shortness of breath. He was hospitalized prior to that valve repair with congestive heart failure and superoinferior pulmonary hypertension systemic hypertension and hyperlipidemia. At age 52 has never had a colonoscopy. States that he has had this left inguinal hernia for at least 15 years. He is still able to reduce it. He does not notice any bright red blood per rectum or melena. He did state that during his cardiac workup he had a CARLOS and was given Versed became unresponsive and required reversal with flumazenil (Romazicon). He denies DVT. 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 ROS General General: No weight change, appetite, fatigue, colon cancer, breast cancer or weakness HEENT HEENT: No difficulty swallowing, eye injury, eye surgery, swollen glands or hoarseness Endo Endocrine: No thyroid disease, diabetes mellitus, thyroid cancer, Hair loss, heat intolerance or cold intolerance Skin Skin: No rash or changing moles Breast Breast: No left breast lump, right breast lump, nipple discharge, breast pain, abnormal mammogram, abnormal US or breast enlargement Musc Musculoskeletal: No back problems, arthritis, rheumatoid arthritis, gout or joint pain Cardio Cardiovascular: Yes murmur and high blood pressure; no pacemaker, heart disease, atrial fibrillation, heart attack, heart stent, palpitations, shortness of breat with exertion or chest pain Psych Psychiatric: No depression, anxiety or hearing voices Resp Respiratory: No shortness of breath, No sleep apnea, No cough, No COPD, No asthma, No emphysema, No wheezing Gastro Gastrointestinal: No abdominal pain, No nausea or vomiting, Yes diarrhea, No constipation, No blood in stool, No acid reflux, Yes hemorrhoids, No ulcers, No gallbladder problem, No black,tarry stools Samuel Hematologic: Yes blood thinners, No blood disorders, No bleeding, No anemia, No blood clots Neuro Neurologic: No system reviewed and no additional complaints, except as docu, No as per HPI, No abnormal walking, No abnormal hearing, No abnormal movements, No abnormal speech, No behavioral changes, No burning sensations, No confusion, No seizure-like activity, No unsteadiness, No dizziness, No localized weakness, No frequent falls, No headache(s), No lack of coordination, No loss of vision, No memory loss, Yes numbness, No other visual disturbances, No radiating pain, No restless legs, No sensory deficit, No fainting, Yes tingling, No tremor(s), No weakness, No other Exam Const General: cooperative, no acute distress Nutritional Appearance: average body habitus Orientation: alert, awake [facility] Head: normal to inspection Eyes General: appearance normal, both eyes and all related structures Chest Chest palpation AND inspection: normal inspection of the chest Breast Palpation: No nipple discharge Resp Effort AND Inspection: normal respiratory effort Auscultation: clear to auscultation bilaterally Cardio Rate: regular rate Rhythm: regular rhythm Heart Sounds: murmur GI Palpation: soft, no hepatosplenomegaly Auscultation: normal bowel sounds Other: Small reducible right inguinal hernia, testicle descended Very large left inguinal hernia with significant loop of bowel, testicle descended Skin General: no rashes or lesions noted Neuro Other: Patient is alert awake aware of his situation and place, motor strength grossly normal. Patient notes paresthesias distal right lower extremity Extrem General: no calf tenderness Psych Affect: normal affect Assessment AND Plan Problems 1. Non-recurrent bilateral inguinal hernia without obstruction or gangrene K40.20 Plan The patient has had a very alf left inguinal hernia with sigmoid colon involvement. I propose for him a screening colonoscopy with possible biopsy or polypectomy as indicated. As of those valve repair we will provide ampicillin 2 g IV preprocedure. He is aware of the technique, benefits, risks, alternatives. Subsequently without acute finding that we will have him scheduled for a left inguinal herniorrhaphy. The patient prefers this be performed with a monitored anesthesia care with local technique. With that in mind I cannot pursue a laparoscopic bilateral inguinal hernia repair. We will address the left inguinal hernia with an anticipated Prem approach. Pending his future progress then could consider a staged approach to the right. The size and duration of the left inguinal hernia present suggest that the dissection will be extensive and the potential for post surgical edema quite likely. I discussed with the patient the technique, benefits, risks, alternatives. No guarantees of success have been offered. The patient is aware the potential risk for recurrence. He has had an opportunity to ask and have questions answered. We will schedule and proceed at his discretion. I very much appreciate the kind opportunity of assisting with his surgical care. Tu Munoz M.D., F.A.C.S. Orders Orders: Coding Level of Care Code Comprehensive,moderate Diagnoses Non-recurrent bilateral inguinal hernia without obstruction or gangrene K40.20 Obstruction and gangrene presence: without obstruction or gangrene Recurrence: non-recurrent Time Spent (min) 50 08/06/18 8869 <Electronically signed by Tu Munoz MD> Date Tu Munoz MD Cosigner Signature: Date (if applicable) CC: Suhail Borges MD NCS AND/OR EMG Observed: 07/27/2018 Status: F Source: [facility] PATIENT 11:57 AM [facility] REPOSITORY [facility] Pulmonary Services/Neurology [address] [place] [address] MR#: [id number] Acct: [id number] Name: CHRISTINE ANDREW Rep #: [id number] : 1965 52 From: Kervin Vizcaino MD Referring Dr: Suhail Borges MD Status: REG CLI Ordering Dr: Date: Location: [facility] Sex: M C 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 Bilateral upper extremity sensory and motor nerve conduction studies are performed. The left median motor and sensory distal latencies prolonged with preservation of amplitudes and conduction velocities. The left ulnar sensory response to digit 5 demonstrates diminished amplitude. The ulnar motor responses are normal bilaterally, and the median ulnar F-wave latencies are normal bilaterally. Left upper extremity needle electromyography is performed. Muscles evaluated included the first dorsal interosseous, abductor pollicis brevis, brachioradialis, biceps, triceps and deltoid muscles. All muscles demonstrated normal insertional activity with absence of pathologic spontaneous activity. Motor unit potential recruitment pattern and amplitude is normal in all muscles tested. Impression: 1. 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 2. 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 07/27/18 1157 <Electronically signed by Kervin Vizcaino MD> Date Kervin Vizcaino MD CC: Suhail Borges MD; Kervin Vizcaino MD Date Dictated: 07/25/18 1014 Date Transcribed: 07/25/18 1014 Wastewater Plant Operator: NF Signed CBC W/DIFF, AUTOMATED Collected: 07/11/2018 Status: F Source: [facility] 1:54 PM [facility] REPOSITORY TYPE CODE TESTS RESULT OUT OF RANGE REFERENCE UNITS LAB L100.1000 4.4-11.0 K/mm3 Normal WBC 5.5 LAB L100.1200 4.6-6.2 M/mm3 Low RBC 4.39 LAB L100.1300 13.0-16.5 g/dl Low HGB 12.9 LAB L100.1400 40-54 % Low HCT 39.5 LAB L100.1500 80-94 fL Normal MCV 90.0 LAB L100.1600 27.0-32.0 pg Normal MCH 29.4 LAB L100.1700 32-36 g/gl Normal MCHC 32.7 LAB L100.1810 11.6-14.6 % Normal RDW CV 12.7 LAB L100.1820 35.1-43.9 fl Normal RDW SD 41.0 LAB L100.1900 150-450 K/mm3 Normal PLT 152 LAB L100.2000 6.2-12.0 fl Normal MPV 10.3 LAB L100.2100 47-70 % Normal NEUT% 57.1 LAB L100.2200 19-41 % Normal LY% 27.4 LAB L100.2300 0-10 % Normal MONO% 9.5 LAB L100.2400 0-5 % Normal EO% 4.7 LAB L100.2500 0-1 % High BASO% 1.1 LAB L100.2550 0.0-0.9 % Normal IM GRAN % 0.200 Result Comment: IG% - Immature Granulocytes (promyelocytes, myelocytes and metamyelocytes) > 1% indicates that a LEFT SHIFT is Present. LAB L100.2620 2.0-7.7 X10 3/uL Normal Absolute Neut 3.1 LAB L100.2720 0.83-4.51 X10 3/ul Normal Absolute Lymph 1.50 Performed By: #### L100.0100 #### [facility] [address] [place], [address] COMPREHENSIVE METABOLIC Collected: 07/11/2018 Status: F Source: [facility] 1:54 PM [facility] REPOSITORY TYPE CODE TESTS RESULT OUT OF RANGE REFERENCE UNITS LAB L501.0100 74-106 mg/dL Normal GLU 89 Result Comment: Please note revised GLUCOSE reference range effective 2017. LAB L501.1000 7-18 mg/dL Normal BUN 17 LAB L501.1100 0.70-1.30 mg/dL Normal CREAT,SERUM 0.99 Result Comment: The validity of the calculated GFR AND GFRAA in patients over 70 years has not been determined. Clinical correlation is essential. LAB L501.1110 >60 mL/min Normal EST GFR 84 Result Comment: Non- GFR Calc LAB L501.1115 >60 mL/min Normal EST GFR - AA 101 Result Comment: GFR Calc LAB L501.1300 10-20 RATIO Normal BUN/CRE 17.1 LAB L501.1500 6.4-8.2 g/dL T Normal PROT 8.0 LAB L501.1800 3.2-5.0 g/dL Normal ALB 4.1 LAB L501.1950 2.2-4.2 g/dL Normal GLOB 3.9 LAB L501.2000 0.9-2.4 RATIO Normal A/G 1.1 LAB L501.2200 8.5-10.1 mg/dL CA Normal 9.3 LAB L501.4100 15-37 U/L Normal AST 26 LAB L501.4305 45-117 U/L Normal ALK P 87 LAB L501.4405 16-61 U/L Normal ALT 41 LAB L501.4600 0.20-1.00 mg/dL T Normal BILI 0.80 LAB L501.5300 136-145 mmol/L NA Normal 143 LAB L501.5600 3.5-5.1 mmol/L K Normal 4.4 LAB L501.5900 98-107 mmol/L CL Normal 104 LAB L501.6100 21.0-32.0 mmol/L Normal CO2 30.0 LAB L501.6200 5-15 Normal GAP 9 Performed By: #### L500.4050, L500.4100 #### [facility] [address], [place], [id number] LIPID PROFILE Collected: 07/11/2018 Status: F Source: [facility] 1:54 PM [facility] REPOSITORY TYPE CODE TESTS RESULT OUT OF RANGE REFERENCE UNITS LAB L501.4900 200 mg/dL Normal CHOL 165 Result Comment: <200 mg/dL Desirable 200-240 mg/dL Borderline >240 mg/dL High Risk LAB L501.5000 mg/dL Normal TRIG 87 Result Comment: The drugs N-Acetylcysteine and Metamizole may falsely depress this assay. Serum Triglycerides Reference Interval Normal <150 mg/dL Borderline high 150 - 199 mg/dL High 200 - 499 mg/dL Very High > or = 500 mg/dL LAB L501.6400 mg/dL Normal HDL 44 Result Comment: The drugs N-Acetylcysteine and Metamizole may falsely depress this assay. Reference Range HDL <40 mg/dL Low HDL Cholesterol HDL >or= 60 mg/dL High HDL Cholesterol LAB L501.6500 0-130 mg/dL Normal LDL 104 LAB L501.6600 5-40 mg/dL Normal VLDL 17 Performed By: #### L500.4050, L500.4100 #### [facility] [address] [place], [address] HEMOGLOBIN A1C Collected: 07/11/2018 Status: F Source: [facility] 1:54 PM [facility] REPOSITORY TYPE CODE TESTS RESULT OUT OF RANGE REFERENCE UNITS LAB L501.9985 4.2-6.3 % Normal HGB A1C 5.1 Performed By: #### L501.9985 #### [facility] [address] [place], [address] CARDIOLOGY VISIT Observed: 06/26/2018 Status: F Source: [facility] REPORT 3:52 PM [facility] REPOSITORY [facility] [address] [place] [address] OFFICE VISIT Date of Service: 06/26/18 MR#: [id number] Acct: [id number] Name: CHRISTINE ANDREW Rep #: [id number] : 1965 Provider: Kike Rivera MD Age/Sex: 52/M [place] [facility] [place]: Signed HPI HPI Chief Complaint: Routine f/u Details: CHRISTINE ANDREW, is a 52 M who presents to the office today for a cardiovascular outpatient follow-up. Patient had a history of severe mitral valve insufficiency, moderate tricuspid valve insufficiency, severe pulmonary hypertension, hypertension, and hyperlipidemia. Patient presented to [facility] in October 2017 for increasing shortness of breath and lower extremity pedal edema. He underwent left and right heart catheterization and was sent to [facility] for valve repair with Dr. Baeza. Patient underwent mitral valve repair, tricuspid valve repair, and left atrial appendage exclusion. Patient is here for follow-up. Pt denies chest, arm, jaw, or neck discomfort. His exercise tolerance is stable via walking twice a day for 30 minutes each. Pt denies symptoms of CHF, lightheadedness, dizziness, near syncopal or syncopal episodes. Pt denies edema or claudication issues. Pt. denies orthopnea, PND, fever, chills, blood in urine, blood in stool, myalgia, or unexplainable fatigue. Echocardiogram from November 09, 2017 at [facility] post valvular repair showed an estimated ejection fraction of 56%, mitral valve with mean and peak gradients of 5 and 10 mmHg, mitral valve area of 2.3 cm , small pericardial effusion, and mean transvalvular gradient of tricuspid valve of 2 mmHg. Repeat echocardiogram dated 04/11/18 showed an EF around 50%, and marked reduction of his pulmonary pressures from 59 to 29 mmHg, and intact mitral and tricuspid valve repairs. Since her last visit he denies any chest pain, angina, shortness of breath or dyspnea on exertion. He is taking and tolerating his medicines well. He is exercising on a regular basis without any difficulty. In our office today's blood pressure is 110/70, pulse is 60 and regular. Physical exam is as below. He has no edema. Lipids as of 10/26/17 showed LDL of 56 and HDL 29. Intake Vital Signs06/26/18 Height 5 ft 8 in 06/26/18 Weight: 191 lb 06/26/18 Body Mass Index (BMI) 29.0 06/26/18 Blood Pressure 110/70 Intake Visit Reasons: 6 M Dragline Operator Required: No Accompanied by: Allergies latex Allergy (Verified 06/26/18 09:02) Unknown Medications aspirin 81 mg tablet,delayed release 81 mg PO QDAY 12/19/17 [History Confirmed 06/26/18] lisinopril 20 mg tablet 20 mg PO QDAY 02/12/18 [History Confirmed 06/26/18] amlodipine 5 mg tablet 5 mg PO QDAY 03/30/18 [History Confirmed 06/26/18] carvedilol 25 mg tablet 25 mg PO BID #180 tab 03/30/18 [Rx Confirmed 06/26/18] gabapentin 100 mg capsule 100 mg PO BID cap 03/30/18 [History Confirmed 06/26/18] potassium chloride ER 20 mEq tablet,extended release 20 meq PO QDAY #30 tab 03/30/18 [Rx Confirmed 06/26/18] amoxicillin 500 mg capsule 500 mg PO .COMPLEX 06/26/18 [History Confirmed 06/26/18] [facility] Medical History Nonrheumatic mitral (valve) insufficiency (Chronic) Nonrheumatic tricuspid (valve) insufficiency (Chronic) Mitral regurgitation (Resolved) Lower extremity edema (Resolved) MVP (mitral valve prolapse) (Resolved) Pulmonary edema (Resolved) SOB (shortness of breath) (Resolved) Urinary retention (Resolved) Surgical History Left atrial appendage exclusion (Chronic 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/17) S/P tricuspid valve repair (Chronic 11/02/17) S/P mitral valve repair (Chronic 11/02/17) Family History Mother Diabetes Atrial fibrillation Father Hypertension Brother Hypertension Social History Smoking Status: Never smoker ROS Const Const: Negative for fatigue, weakness, body ache, fever(s), headache(s), chills, frequent falls, night sweats, daytime sleepiness, difficulty sleeping, excessive sweating, weight gain, weight loss, increased appetite, poor appetite, anorexia or other Eyes Eyes: Negative for blind spots, loss of peripheral vision, transient loss of vision, blurry vision, change in vision, double vision, floaters, tunnel vision or other ENT ENT: Negative for headache(s), dizziness, hearing loss, tinnitus, Nosebleed/epistaxis, balance problems, post nasal drip, lip swelling, tongue swelling, bleeding gums, hoarseness, neck pain, dry mouth or other Cardio Chest Pain: No Palpitations: No Edema: None Muscle aches with walking: None Resp Respiratory: Negative for SOB with activity, SOB at rest, SOB orthopnea\SOB lying down, Cough, Coughing up blood/hemoptysis, chest congestion, pain on inspiration, snoring, stridor, wheezing, crackles, paroxysmal nocturnal dyspnea or other GI GI: Negative nausea, vomiting, heartburn, constipation, belching, bloating, cramping, vomiting blood/hematemesis, bright, red blood in stools, black,tarry stools, loose stools, Difficulty Swallowing or other : Negative for hematuria, frequent nighttime urination/ nocturia, erectile dysfunction or abnormal vaginal bleeding Musc Musc: Negative for balance problems, muscle aches/ myalgia, muscle weakness or joint pain Skin Skin: Negative redness, non-healing lesions, rash, unusual bruising, skin ulcer, wounds, jaundice or other Neuro Neuro: Negative for weakness, headache(s), frequent falls, blurry vision, double vision, dizziness, lightheadedness, near syncope, syncope, orthostatic symptoms, confusion, memory loss, restless legs, vertigo, seizures, lack of coordination or other Samuel Hematologic/Lymphatic: Negative for easy bleeding, easy bruising, enlarged lymph nodes or other Endo Endo: Negative for fatigue, excessive sweating, cold intolerance, heat intolerance, flushing, increased thirst/drinking, increased hunger, hair loss, hair growth or other Psych Psych: Negative for anxiety, depression, thoughts of harming anyone, thoughts of harming yourself, visual hallucinations, panic attacks or audible hallucinations Allergy Allergy/Immunology: Negative for lip swelling, Negative for tongue swelling, Negative for rash, Negative for throat swelling, Negative for hives Cardiology Exam Const Appearance: cooperative, healthy appearing and no acute distress Nutritional Appearance: well nourished Orientation: alert, oriented x3 and oriented to person Head Head: normal to inspection, atraumatic and normocephalic Nose: external nose normal Face and Sinus: face symmetric Mouth: oral mucosae normal Eyes General: appearance normal, both eyes and all related structures Eyelids: eyelids normal Conjunctivae: conjunctivae normal Pupils: PERRL and normal by confrontation EOM: EOM intact bilaterally Neck Neck: normal visual inspection and full ROM Carotids: normal carotid upstroke Chest Chest inspection: normal inspection of the chest Auscultation: Bilateral: Clear to Auscultation Cardio Palpation: normal PMI Rate: regular rate Rhythm: regular rhythm Heart sounds: S1 normal and S2 normal GI GI: normal to inspection, no hepatosplenomegaly and bowel sounds present Neuro General: alert, oriented x3, awake, CN's II-XI intact bilaterally and moves all extremities Skin Skin: no rashes or lesions noted Extremities Pulses: Normal: Right Femoral Pulse, Left Femoral Pulse, Right Dorsalis Pedis Pulse, Left Dorsalis Pedis Pulse, Right Posterior Tibial Pulse, Left Posterior Tibial Pulse, Right Radial Pulse, Left Radial Pulse Lower Extremity Edema: None: Bilateral Psych Psychological: normal affect Assessment AND Plan 1. S/P mitral valve repair Z98.890 With a triangular section P2 angioplasty with a 34 mm Samira band 11/02/2017 at [facility] Plan 1. Mitral valve and tricuspid valve repair: The patient is doing quite well after his mitral valve and tricuspid valve repair. He is euvolemic, exercising well, and tolerating his medicines appropriately. I recommended he continue to exercise and continue his baby aspirin, amlodipine, Coreg and lisinopril. In SBE prophylaxis card was given to him and updated. His repeat echocardiogram in March 2018 showed markedly improved pulmonary pressures down from 59-29, and intact mitral and tricuspid valve repair. LV function was 50%. The patient requires hernia surgery sometime this year before the year is out, and he is at low risk for noncardiac surgery. He does not require a repeat catheterization or stress test. 2. Return office in 6 months. This note was generated using a voice recognition system and there may be incorrect words, spelling or punctuation that were not noted when reviewing the office note prior to saving. Plan Detail Other Medications Discontinued: Follow Up +6M (Miguel) Coding Level of Care Code Off vis,est,level 3 Diagnoses S/P mitral valve repair Z98.890 Coding Level of Care Code Off vis,est,level 3 Diagnoses S/P mitral valve repair Z98.890 06/26/18 1552 <Electronically signed by Kike Rivera MD> Date Kike Rivera MD Cosigner Signature: Date (if applicable) CC: NCS AND/OR EMG Observed: 05/09/2018 Status: F Source: [place] PATIENT 3:14 PM [facility] REPOSITORY [facility] Pulmonary Services/Neurology [address] [place] [address] MR#: [id number] Acct: [id number] Name: CHRISTINE ANDREW Rep #: [id number] : 1965 52 From: Pamela Bell MD Referring Dr: Suhail Borges MD Status: REG CLI Ordering Dr: Date: Location: [facility] Sex: M C NCS and/or EMG Patient Report Ordering Doctor: Suhail Borges DATE OF SERVICE: 05/09/18 Christine Andrew is a 52-year-old male with chief complaint of numbness and tingling in the feet, mainly on the right side. Electrodiagnostic findings right peroneal motor nerve demonstrates normal distal latency, amplitude and conduction velocity. Left peroneal motor nerve demonstrates normal response when measured at the tibialis anterior. Right tibial motor nerve demonstrates prolonged distal latency with reduced amplitude and conduction velocity. Absent left superficial peroneal response. Absent right medial plantar response. H reflexes are within normal limits. Prolonged right tibial F wave is noted. On needle EMG, decreased recruitment pattern noted in the right gastrocnemius. Electrodiagnostic findings: This is an abnormal study. 1. 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 2. No electrodiagnostic evidence noted for lumbosacral radiculopathy. 3. The left superficial peroneal and right medial plantar responses were not obtainable. Would consider correlation with upper extremity testing to evaluate for peripheral polyneuropathy. If there are any further questions, please not hesitate contact me 05/09/18 0150 <Electronically signed by Pamela Bell MD> Date Pamela Bell MD CC: Pamela Bell; Suhail Borges MD Date Dictated: 05/09/18 1448 Date Transcribed: 05/09/181447 Wastewater Plant Operator: WYATT Garzon BASIC METABOLIC Collected: 04/19/2018 Status: F Source: [place] PROFILE (BMP) 2:22 PM [facility] REPOSITORY Order Comment: Order Date: 04/19/18 Order Info: 0667-1 - BMP TYPE CODE TESTS RESULT OUT OF RANGE REFERENCE UNITS LAB L501.0100 74-106 mg/dL Normal GLU 95 Result Comment: Please note revised GLUCOSE reference range effective 2017. LAB L501.1000 7-18 mg/dL High BUN 21 LAB L501.1100 0.70-1.30 mg/dL Normal CREAT,SERUM 1.04 Result Comment: The validity of the calculated GFR AND GFRAA in patients over 70 years has not been determined. Clinical correlation is essential. LAB L501.1110 >60 mL/min Normal EST GFR 79 Result Comment: Non- GFR Calc LAB L501.1115 >60 mL/min Normal EST GFR - AA 96 Result Comment: GFR Calc LAB L501.1300 10-20 RATIO High BUN/CRE 20.2 LAB L501.2200 8.5-10.1 mg/dL CA Normal 9.5 LAB L501.5300 136-145 mmol/L NA Normal 140 LAB L501.5600 3.5-5.1 mmol/L K Normal 4.3 LAB L501.5900 98-107 mmol/L CL Normal 104 LAB L501.6100 21.0-32.0 mmol/L High CO2 33.0 LAB L501.6200 5-15 Low GAP 3 Performed By: #### L500.2500 #### [facility] [address] [place], [address] ECHOCARDIOGRAM COMPLETE Observed: 04/11/2018 Status: F Source: [place] 2:39 PM [facility] REPOSITORY [facility] Cardiovascular Services [address] [place] [address] Echo Complete 04/11/18 1046 MR#: [id number] Acct: [id number] Name: CHRISTINE ANDREW Rep #: [id number] : 1965 52 From: Kike Rivera MD Attending Dr: Suhail Warren NP Status: REG CLI Ordering Dr: Suhail Warren [employer]-C Date: 04/11/18 Location: [facility] Sex: M C Admitted: Reason For Study: s/p MVR and TVR Procedure This was a 2D Doppler, Color Flow transthoracic echocardiogram. Exam performed in department. Latex allergy. Left Ventricle Normal size and thickness. The estimated ejection fraction is 50-55 %. Unable to assess diastolic dysfunction. Septal motion consistent with IVCD. No regional wall motion abnormalities noted. Right Ventricle Moderately dilated right ventricle. Normal systolic function. Atria The left atrium is severely enlarged. Normal right atrium. Normal atrial septum. Mitral Valve Peak transmitral valve gradient 8 mmHg. Mean transmitral valve gradient 4 mmHg. An annuloplasty ring is noted in the mitral position. Tricuspid Valve Normal tricuspid valve. Trivial tricuspid valve insufficiency. Right ventricular systolic pressure estimated to be 29 mmHg. An annuloplasty ring is noted in the tricuspid position. Aortic Valve Trisinus/trileaflet aortic valve. Pulmonic Valve Normal pulmonic valve. Trivial pulmonic valve insufficiency. Great Vessels Normal aortic root. Normal arch. Normal inferior vena cava. Inferior vena cava collapse with sniff. Pericardium/Pleural No pericardial effusion. MMode/2D Measurements AND Calculations LVIDd: 5.0 cm IVSd: 1.0 cm Ao root diam: 3.2 cm LVIDs: 3.4 cm LVPWd: 1.2 cm RVDd: 4.3 cm FS: 31.6 % LAV(MOD-sp4): 79.2 ml EDV(MOD-sp4): 148.8 ml EDV(MOD-sp2): 124.2 ml ESV(MOD-sp4): 72.1 ml EF(MOD-sp2): 52.9 % EF(MOD-sp4): 51.6 % SV(MOD-sp4): 76.7 ml SV(MOD-sp2): 65.6 ml LA A4 area: 25.3 cm2 RA A4 area: 14.9 cm2 Doppler Measurements AND Calculations MV E max cricket: 154.4 cm/sec Lat Peak E' Cricket: 6.6 cm/sec Med Peak E' Cricket: 5.2 cm/sec MV A max cricket: 112.3 cm/sec E/E' lat: 23.2 E/E' med: 29.5 MV E/A: 1.4 MV V2 max: 127.2 cm/sec Ao V2 max: 129.2 cm/sec LV V1 max: 105.6 cm/sec MV max P.0 mmHg Ao max P.7 mmHg LV V1 max P.5 mmHg MV V2 mean: 83.8 cm/sec MV mean P.9 mmHg MV V2 VTI: 43.0 cm TV V2 max: 70.1 cm/sec TR max cricket: 240.3 cm/sec TV max P.0 mmHg TR max P.1 mmHg TV V2 mean: 38.2 cm/sec TV mean P.70 mmHg Interpretation Summary The estimated ejection fraction is 50-55 %. Unable to assess diastolic dysfunction. The left atrium is severely enlarged. Trivial tricuspid valve insufficiency. Right ventricular systolic pressure estimated to be 29 mmHg. Compared to echo report dated 10/26/2017, LV function has remained the same, and now pt has had successful MV and TV repair. RVSP has gone from 75 to 29 mm Hg. Ordering Physician: Suhail Warren Referring Physician: Kike Rivera Performed By: Sana Reagan, KIERA, RVT 04/11/18 1438 Date Kike Rivera MD CC: [employer] Suhail Warren; Suhail Borges MD Date Dictated: 04/11/18 1046 Date Transcribed: 04/11/181437 Wastewater Plant Operator: Signed BASIC METABOLIC Collected: 03/29/2018 Status: F Source: [place] PROFILE (BMP) 9:44 AM [facility] REPOSITORY Order Comment: Order Date: 03/29/18 Order Info: 0667-1 - BMP TYPE CODE TESTS RESULT OUT OF RANGE REFERENCE UNITS LAB L501.0100 74-106 mg/dL Normal GLU 94 Result Comment: Please note revised GLUCOSE reference range effective 2017. LAB L501.1000 7-18 mg/dL High BUN 22 LAB L501.1100 0.70-1.30 mg/dL Normal CREAT,SERUM 1.01 Result Comment: The validity of the calculated GFR AND GFRAA in patients over 70 years has not been determined. Clinical correlation is essential. LAB L501.1110 >60 mL/min Normal EST GFR 82 Result Comment: Non- GFR Calc LAB L501.1115 >60 mL/min Normal EST GFR - AA 99 Result Comment: GFR Calc LAB L501.1300 10-20 RATIO High BUN/CRE 21.8 LAB L501.2200 8.5-10.1 mg/dL CA Normal 9.5 LAB L501.5300 136-145 mmol/L NA Normal 143 LAB L501.5600 3.5-5.1 mmol/L K Normal 4.2 LAB L501.5900 98-107 mmol/L CL Normal 104 LAB L501.6100 21.0-32.0 mmol/L Normal CO2 30.0 LAB L501.6200 5-15 Normal GAP 9 Performed By: #### L500.2500 #### [facility] [address] [place], [address] CBC W/DIFF, AUTOMATED Collected: 03/20/2018 Status: F Source: [place] 3:36 PM [facility] REPOSITORY TYPE CODE TESTS RESULT OUT OF RANGE REFERENCE UNITS LAB L100.1000 4.4-11.0 K/mm3 Normal WBC 6.1 LAB L100.1200 4.6-6.2 M/mm3 Low RBC 4.26 LAB L100.1300 13.0-16.5 g/dl Low HGB 12.2 LAB L100.1400 40-54 % Low HCT 37.7 LAB L100.1500 80-94 fL Normal MCV 88.5 LAB L100.1600 27.0-32.0 pg Normal MCH 28.6 LAB L100.1700 32-36 g/gl Normal MCHC 32.4 LAB L100.1810 11.6-14.6 % High RDW CV 14.7 LAB L100.1820 35.1-43.9 fl High RDW SD 46.7 LAB L100.1900 150-450 K/mm3 Low PLT 136 LAB L100.2000 6.2-12.0 fl Normal MPV 10.7 LAB L100.2100 47-70 % Normal NEUT% 55.5 LAB L100.2200 19-41 % Normal LY% 26.2 LAB L100.2300 0-10 % High MONO% 11.7 LAB L100.2400 0-5 % High EO% 5.6 LAB L100.2500 0-1 % Normal BASO% 0.8 LAB L100.2550 0.0-0.9 % Normal IM GRAN % 0.200 Result Comment: IG% - Immature Granulocytes (promyelocytes, myelocytes and metamyelocytes) > 1% indicates that a LEFT SHIFT is Present. LAB L100.2620 2.0-7.7 X10 3/uL Normal Absolute Neut 3.4 LAB L100.2720 0.83-4.51 X10 3/ul Normal Absolute Lymph 1.59 Performed By: #### L100.0100 #### [facility] [address] [place], [place], [id number] URINALYSIS, COMPLETE Collected: 03/20/2018 Status: F Source: [place] 3:36 PM [facility] REPOSITORY Order Comment: Comments: [id number]; VITAMIN B6; EDTA;PROTECT FROM LIGHT How was Urine Obtained? CLEAN CATCH TYPE CODE TESTS RESULT OUT OF RANGE REFERENCE UNITS LAB L400.3000 Yellow COLOR Normal Yellow LAB L400.3050 Clear Normal CLARITY Clear LAB L400.3200 Normal mg/dl Normal GLUCOSE, UR Normal LAB L400.3300 Negative mg/dL Normal BILIRUBIN URINE Negative LAB L400.3400 Negative mg/dl Normal KETONE UR Negative LAB L400.3465 1.002-1.030 Normal SP.GR. DIPSTX 1.010 LAB L400.3550 5.0 - 8.0 pH UR Normal 7.0 LAB L400.3600 Negative mg/dl PROT Normal DIPSTX Negative LAB L400.3700 Normal mg/dl Normal UROBILI Normal LAB L400.3750 Negative Normal NITRITE UR Negative LAB L400.3780 Negative /ul Normal OCCULT BLOOD-UR Negative LAB L400.3800 Negative /ul High LEUK ESTERASE 100 LAB L400.4050 0-5 /hpf WBC Normal 0-5 SEEN LAB L400.4100 0-5 /hpf 0 Normal RBC-UA SEEN LAB L400.4150 0-5 /hpf SQUAM 0 Normal EPI SEEN LAB L400.4300 None Seen /hpf 0 Normal BACTERIA SEEN LAB L400.4350 <or=2+ /hpf 0 Normal MUCUS, URINE SEEN Performed By: #### L400.0001 #### [facility] [address] [place], [place], [address] COMPREHENSIVE METABOLIC Collected: 03/20/2018 Status: F Source: [facility] 3:36 PM [facility] REPOSITORY Order Comment: Comments: [id number]; VITAMIN B6; EDTA;PROTECT FROM LIGHT TYPE CODE TESTS RESULT OUT OF RANGE REFERENCE UNITS LAB L501.0100 74-106 mg/dL Normal GLU 82 Result Comment: Please note revised GLUCOSE reference range effective 2017. LAB L501.1000 7-18 mg/dL High BUN 24 LAB L501.1100 0.70-1.30 mg/dL High CREAT,SERUM 1.35 Result Comment: The validity of the calculated GFR AND GFRAA in patients over 70 years has not been determined. Clinical correlation is essential. LAB L501.1110 >60 mL/min Low EST GFR 59 Result Comment: Non- GFR Calc LAB L501.1115 >60 mL/min Normal EST GFR - AA 71 Result Comment: GFR Calc LAB L501.1300 10-20 RATIO Normal BUN/CRE 17.8 LAB L501.1500 6.4-8.2 g/dL T Normal PROT 7.8 LAB L501.1800 3.2-5.0 g/dL Normal ALB 4.0 LAB L501.1950 2.2-4.2 g/dL Normal GLOB 3.8 LAB L501.2000 0.9-2.4 RATIO Normal A/G 1.1 LAB L501.2200 8.5-10.1 mg/dL CA Normal 9.5 LAB L501.4100 15-37 U/L Normal AST 29 LAB L501.4305 45-117 U/L Normal ALK P 92 LAB L501.4405 16-61 U/L Normal ALT 39 LAB L501.4600 0.20-1.00 mg/dL High T BILI 1.10 LAB L501.5300 136-145 mmol/L NA Normal 141 LAB L501.5600 3.5-5.1 mmol/L K Normal 4.9 LAB L501.5900 98-107 mmol/L CL Normal 104 LAB L501.6100 21.0-32.0 mmol/L Normal CO2 32.0 LAB L501.6200 5-15 Normal GAP 5 Performed By: #### L500.4050, L501.1400, L501.9520 #### [facility] [address] [place], [place], [address] URIC ACID Collected: 03/20/2018 Status: F Source: [place] 3:36 PM [facility] REPOSITORY Order Comment: Comments: [id number]; VITAMIN B6; EDTA;PROTECT FROM LIGHT TYPE CODE TESTS RESULT OUT OF RANGE REFERENCE UNITS LAB L501.1400 3.5-7.2 mg/dL Normal URIC 7.0 Result Comment: The drugs N-Acetylcysteine and Metamizole may falsely depress this assay. Performed By: #### L500.4050, L501.1400, L501.9520 #### [facility] [address] [place], [place], [address] THYROID STIM HORMONE Collected: 03/20/2018 Status: F Source: [place] (TSH) 3:36 PM [facility] REPOSITORY Order Comment: Comments: [id number]; VITAMIN B6; EDTA;PROTECT FROM LIGHT TYPE CODE TESTS RESULT OUT OF RANGE REFERENCE UNITS LAB L501.9520 0.358-3.74 uIU/mL Normal TSH 1.57 Performed By: #### L500.4050, L501.1400, L501.9520 #### [facility] [address] [place], [address] HEMOGLOBIN A1C Collected: 03/20/2018 Status: F Source: [place] 3:36 PM [facility] REPOSITORY TYPE CODE TESTS RESULT OUT OF RANGE REFERENCE UNITS LAB L501.9985 4.2-6.3 % Normal HGB A1C 5.7 Performed By: #### L501.9985 #### [facility] [address] [place], [address] VITAMIN B12 Collected: 03/20/2018 Status: F Source: [place] 3:36 PM [facility] REPOSITORY TYPE CODE TESTS RESULT OUT OF RANGE REFERENCE UNITS LAB L503.0105 211-911 pg/mL Normal Vitamin B12 478 Performed By: #### L503.0105 #### [facility] [address] [place], [address] VITAMIN B1, THIAMINE Collected: 03/20/2018 Status: F Source: [place] 3:36 PM [facility] REPOSITORY Order Comment: Comments: [id number]; VITAMIN B6; EDTA;PROTECT FROM LIGHT TYPE CODE TESTS RESULT OUT OF RANGE REFERENCE UNITS LAB L3300.8000 66.5-200.0 nmol/L Normal VIT B1 109.5 Result Comment: This test was developed and its performance characteristics determined by [facility]. It has not been cleared or approved by the Food and Drug Administration. Performed at: [address] [id number] [employer] Winder: Simon Guy MD, Phone: [phone] Performed By: #### L3300.8000 #### [facility] (refer to report for specific site) refer to report for address and phone number RENAL ARTERY DUPLEX Observed: 02/22/2018 Status: F Source: [place] 3:13 PM [facility] REPOSITORY [facility] Cardiovascular Services [address] [place] [address] Renal Artery Duplex Ultrasound 02/22/18 0710 MR#: [id number] Acct: [id number] Name: CHRISTINE ANDREW Rep #: [id number] : 1965 52 From: Tu Munoz MD Attending Dr: Suhail Warren, [employer] Status: REG CLI Ordering Dr: Suhail Warren [employer] Date: 02/22/18 Location: [facility] Sex: M C Admitted: Reason For Study: HTN Right Renal Artery Left Renal Artery Right renal artery ostium 116/33.7 Left renal artery ostium 99.0/26.9 RSV/EDV. PSV/EDV. Right renal artery proximal Left renal artery proximal PSV/EDV 119/27.4 PSV/EDV. 128/36.7 . Right renal artery mid 186/52.6 Left renal artery mid 138/39.3 PSV/EDV. PSV/EDV . Right renal artery distal 148/44.5 Left renal artery distal 139/52.0 PSV/EDV. PSV/EDV. Right RAR 1.9. Left RAR 1.4. Right Renal Parenchyma Left Renal Parenchyma Upper Pole Medula 45.6/14.6 Left upper pole medulla 30.6/10.0 PSV/EDV. PSV/EDV . Right upper pole medulla EDR .32 . Left upper pole medulla EDR .33 . Right upper pole medulla R.I. .68 . Left upper pole medulla R.I. .67 . Upper [place] Cortx 40.1/13.2 PSV/EDV. UP Cortex 36.9/15.0 PSV/EDV. Right upper pole cortex EDR .33 . Left upper pole cortex EDR .41 . Right upper pole cortex R.I. .67 . Left upper pole cortex R.I. .59 . Right lower Pole medulla 31.9/10.5 Left lower Pole medulla 41.5/19.2 PSV/EDV . PSV/EDV . Right lower pole medulla EDR .33 . Left lower pole medulla EDR .46 . Right lower pole medulla R.I. .67 . Left lower pole medulla R.I. .54 . Lower Pole Cortex 20.5/8.66 Lower Pole Cortx 36.5/12.3 PSV/EDV. PSV/EDV. Left lower pole cortex EDR .34 . Right lower pole cortex EDR .42 . Left lower pole cortex R.I. .66 . Right lower pole cortex R.I. .58 . Left Renal Hilar Right Renal Hilar Left hilar acceleration time 44 Right hilar acceleration time 37 m/sec. m/sec. LT Hilar avg 51.5/16.0 PSV/EDV . Right Hilar avg 65.2/24.2 PSV/EDV. Left Renal Dimensions Right Renal Dimensions Left kidney size 11.5 cm . Right kidney size 11.1 cm . Left cortical dimension 1.57 cm . Right cortical dimension 1.64 cm . Aorta Proximal abdominal aorta 1.56 x 1.5 cm . Proximal abdominal aorta peak systolic velocity is 98.5 cm/sec . Distal abdominal aorta 1.41 x 1.37 cm . Distal abdominal aorta peak systolic velocity is 128 cm/sec . Normal renal veins bilat. Interpretation Summary Less than 60% stenosis bilateral renal arteries. Normal aorta 1.56 x 1.5cm diameter Normal renal resistivity indices suggesting maintained renal parenchma. Ordering Physician: Suhail Warren Performed By: Pradeep Romero, RVT 02/22/18 1513 Date Tu Munoz MD CC: PARRISH Warren; Cltoilde Primary Care Physician Date Dictated: 02/22/18 0710 Date Transcribed: 02/22/181512 Waste[employer] Plant Operator: Signed URGENT CARE VISIT Observed: 01/29/2018 Status: F Source: [place] REPORT 5:[address] [address] OFFICE VISIT Date of Service: 01/29/18 MR#: [id number] Acct: [id number] Name: CHRISTINE ANDREW Rep #: [id number] : 1965 Provider: Balwinder SMITH Age/Sex: 52/M Location: [facility] Status: Signed Intake Vital Signs01/29/18 Height 5 ft 8 in Intake Visit Reasons: RT FOOT AND TOE PAIN Is patient in pain?: Yes Allergies latex Allergy (Verified 01/29/18 16:00) Unknown Medications acetaminophen 325 mg tablet 650 mg PO Q4H PRN 12/19/17 [History Confirmed 01/29/18] aspirin 81 mg tablet,delayed release 81 mg PO QDAY 12/19/17 [History Confirmed 01/29/18] carvedilol 12.5 mg tablet 12.5 mg PO BID 12/19/17 [History Confirmed 01/29/18] potassium chloride ER 20 mEq tablet,extended release 20 meq PO QDAY tab 12/19/17 [History Confirmed 01/29/18] lisinopril 40 mg tablet 40 mg PO QDAY #30 tab 01/08/18 [Rx Confirmed 01/29/18] hydrochlorothiazide 25 mg tablet 25 mg PO QAM #30 tab 01/10/18 [Rx Confirmed 01/29/18] indomethacin 50 mg capsule 50 mg PO TID 5 Days #15 cap 01/29/18 [Rx Confirmed 01/29/18] methylprednisolone 4 mg tablets in a dose pack 4 mg PO PER PKG DIR 5 Days #21 tab 01/29/18 [Rx Confirmed 01/29/18] PFSH Medical History Nonrheumatic mitral (valve) insufficiency (Chronic) Mitral regurgitation (Acute) Lower extremity edema (Acute) MVP (mitral valve prolapse) (Acute) Pulmonary edema (Acute) SOB (shortness of breath) (Acute) Nonrheumatic tricuspid (valve) insufficiency (Chronic) Urinary retention (Chronic) Surgical History Left atrial appendage exclusion (Acute 11/02/17) S/P tricuspid valve repair (Chronic 11/02/17) S/P mitral valve repair (Chronic 11/02/17) Family History Mother Diabetes Atrial fibrillation Father Hypertension Brother Hypertension Social History Smoking Status: Never smoker HPI HPI Details: CHRISTINE ANDREW, is a 52 M who presents to the office today for right great toe pain. Patient states that he has had right great toe pain for the past 2-3 weeks which has been intermittent however over the past several days it has worsened. He states that the pain causes shooting type pain into his foot and heel. He is concerned for possible fracture as approximate 3 weeks ago he ran his toe into his bathtub and has had pain since. He denies any numbness or tingling. No loss in range of motion. No history of gout. He denies any calf pain. No other associated symptoms or alleviating/aggravating factors. ROS Const Constitutional: No chills, fever(s), fatigue or abnormal sleep pattern Resp Respiratory: No shortness of breath or chest congestion Cardio Cardiology: No chest pain at rest, chest pain with exertion or shortness of breath Musc Musculoskeletal: Positive for joint pain and joint swelling; no abnormal walking, limited range of motion or deformity Skin Skin: No wounds or lesions Neuro Neurology: No abnormal walking, abnormal movements or confusion Psych Psychiatric: No abnormal sleep pattern, No confusion Endo Endocrine: No fatigue Exam Const General: cooperative, healthy appearing Resp Effort AND Inspection: normal respiratory effort Auscultation: Bilateral: Clear to Auscultation Cardio Palpation: normal PMI Rate: regular rate Rhythm: regular rhythm Musc Musculoskeletal: Yes joint tenderness; no decreased ROM Skin General: no rashes or lesions noted Neuro General: alert, CN's II-XI intact bilaterally Extrem General: full ROM, normal capillary refill Other: Mild amount of swelling and tenderness to palpation over the right great toe particularly at the metatarsal phalangeal joint. No crepitus or obvious deformity. Psych Appearance: grossly normal Mental Status: mental status grossly normal Assessment AND Plan Problems 1. Pain in right toe(s) M79.674 Status Acute 2. Gouty arthritis of right great toe M10.9 Status Acute Plan X-ray of the right foot reviewed and interpreted by myself to find no acute findings of fracture. Awaiting radiology interpretation at time of dictation. Patient will be treated for gout of the right great toe at this time with indomethacin and Medrol Dosepak. Discussion was had with Rina Mcguire PA-C regarding treatment as patient is in cardiac rehab at this time. Patient advised to continue monitoring his blood pressure at home as well as at cardiac rehab 3 times weekly. Advised to follow-up with his PCP in 3-5 days if no better or sooner if worse. Advised of potential red flags when appropriate report to the ED. Patient verbalized understanding of all the above. This note was generated with BayRuation software. It may contain incorrect words, spelling, and punctuation that were not noted in checking the note before signing. Orders Orders: Medications New: Coding Level of Care Code Off vis,est,level 4 Diagnoses Pain in right toe(s) M79.674 Gouty arthritis of right great toe M10.9 01/29/18 1738 <Electronically signed by Balwinder SMITH> Date Balwinder SMITH Cosigner Signature: Date (if applicable) CC: FOOT MIN 3 VIEWS Observed: 01/29/2018 Status: F Source: HAMDEN 4:35 PM [facility] REPOSITORY [facility] Imaging Services [address] [place] [id number] Foot min 3 Views MR#: [id number] Acct: [id number] Name: CHRISTINE ANDREW Rep #: [id number] : 1965 M 52 From: Ava Yancey MD PCP: Care Physician, No Primary Status: REG CLI Study: Foot min 3 Views Date of Exam: 01/29/18 Exam# [id number] Ordering Dr: Balwinder Arshad STUDY: X-RAY - RIGHT FOOT CLINICAL: Male, 52 years old. Right-sided foot pain. TECHNIQUE: 3 view(s) of the foot. COMPARISON: None. FINDINGS: There is a plantar calcaneal spur. There may be a posterior calcaneal enthesophyte in addition to what may represent a calcific tendinopathy of the distal Achilles tendon. There are degenerative changes of the intertarsal articulations. There is pes cavus. Normal metatarsi. There is degenerative arthrosis of the metatarsophalangeal joint of the hallux . Normal tibial and fibular sesamoid bones. There is lucency within the proximal aspect of the distal phalanx of the hallux. This may be the result of previous fracture. There are degenerative changes of the IP joint. The proximal phalanx of the hallux is within normal limits. Normal second through fifth metatarsophalangeal joints. Normal interphalangeal joints and phalanges of the lesser toes. There is soft tissue swelling. RAD/Foot min 3 Views IMPRESSION: 1. Calcaneal spurs. 2. Possible calcific tendinopathy. 3. Degenerative arthropathy of the midfoot and hallux. Electronically Signed: Ava Yancey MD at 8:27 EDT , Service support , CC: No Primary Care Physician; Balwinder SMITH Wastewater Plant Operator: Signed BASIC METABOLIC Collected: 01/19/2018 Status: F Source: QUANG PROFILE (BMP) 2:15 PM [facility] REPOSITORY TYPE CODE TESTS RESULT OUT OF RANGE REFERENCE UNITS LAB L501.0100 74-106 mg/dL Normal GLU 95 Result Comment: Please note revised GLUCOSE reference range effective 2017. LAB L501.1000 7-18 mg/dL High BUN 20 LAB L501.1100 0.70-1.30 mg/dL Normal CREAT,SERUM 0.90 Result Comment: The validity of the calculated GFR AND GFRAA in patients over 70 years has not been determined. Clinical correlation is essential. LAB L501.1110 >60 mL/min Normal EST GFR 94 Result Comment: Non- GFR Calc LAB L501.1115 >60 mL/min Normal EST GFR - AA 113 Result Comment: GFR Calc LAB L501.1300 10-20 RATIO High BUN/CRE 22.2 LAB L501.2200 8.5-10.1 mg/dL CA Normal 9.5 LAB L501.5300 136-145 mmol/L NA Normal 139 LAB L501.5600 3.5-5.1 mmol/L K Normal 3.8 LAB L501.5900 98-107 mmol/L CL Normal 100 LAB L501.6100 21.0-32.0 mmol/L High CO2 33.0 LAB L501.6200 5-15 Normal GAP 6 Performed By: #### L500.2500 #### [facility] [address] [place], [place], [address] CR - HISTORY AND Observed: 01/08/2018 Status: F Source: HAMDEN PHYSICAL 2:20 PM [facility] REPOSITORY [facility] Cardiac Rehab [address] [place] [address] CR - History AND Physical MR#: [id number] Acct: [id number] Name: CHRISTINE ANDREW Rep #: [id number] : 1965 52 From: Pradeep SALDIVAR, RVT PCP: Care Physician, Clotilde Primary DOS: 12/27/17 CR - History AND Physical - General Arrival date:: 12/27/17 Arrival time:: 12:57 Referring Physician: Dr. Kike Rivera Primary Diagnosis: Z98.890 11/02/2017 - History of Present Cardiac Event Onset Date: Enter Onset Date of cardiac illnesses in Comment field below Valve Replacement/Repair:: Yes Interventions with present event:: Mitral, Tricuspid valve repair and a left atrial appendage exclusion - Medications Home Medications: Ambulatory Orders Medication Instructions Recorded - Allergies Allergies/Adverse Reactions: Allergies No Known Allergies Allergy (Verified 10/25/17 18:15) - Sleep Disorder Evaluation Hx of Sleep Apnea: No Do you snore loudly (louder than talking or can be heard through closed doors)?: No Do you often feel tired/ fatigued/ sleepy during daytime?: No Has anyone observed you stop breathing during sleep?: No History of Hypertension (for STOP score): Yes STOP Results: Negative Advanced Directives - Advanced Directives Power of Food Technologist: No Living Will: No Advance Directives Information Provided: Yes Advance Directives on File: No DNR Order?:: No Past Medical History - Problems and Co-Morbidities Problems AND Co-Morbidities: Hypertension - Past Cardiac Illness Past Cardiac Illness: Valve Disorders - Other Other: Vision/Eye Problems, 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 Left click = Reports ([place]) Review of Present Symptoms: Reports: Shortness of Breath at Rest, Shortness of Breath with Exertion, Dizziness/Lightheadedness, Fatigue, Appetite - Normal, Appetite - Special Diet. Denies: PVD, Operative Discomfort, Angina, Wound Healing, Heart Arrhythmia/Irregularities, Sleep - Normal, Sexual Changes Risk Factor Assessment - Chief Complaint Chief Complaint: SOB - Pulse Pulse Rhythm: Regular - Hypertension How long have you been treated?: 1 month Blood Pressure Sitting - Right Arm: 160/90 - Diabetes Nutrition Referral for Diabetes: No - Obesity Height: 1.73 m Weight:: 87.997 kg Weight in Pounds: 194.0 lbs Body Mass Index (BMI): 29.5 Nutritional Referral for Obesity: No - Physical Inactivity Physical Inactivity: Reg Exercise 30 min/day - Risk Stratification Risk Guidelines: Lowest Risk: Risk Factor for Smoking, Risk Factor for Dyslipidemia, Risk Factor for Diabetes, Risk Factor for Obesity, Risk Factor for Sedentary Lifestyle, Risk Factor for Depression, Moderate Risk: Risk Factor for Hypertension - For Smoking Smoking Risk Guidelines: Smoking Low Risk: None or quit greater than 6 months ago. Smoking Moderate Risk: Smoker or quit 6 months or less ago. Smoking High Risk: Smoker - For Dyslipidemia Dyslipidemia Risk Guidelines: Low Risk: Moderate Risk: High Risk: 15-25% fat 25.1-29% fat >/= 30% fat. <7% sat fat 7-9% sat fat >9% sat fat. <150 mg chol 150-299 mg chol >/= 300 mg chol. LDL <100 LDL 100-129 LDL >/= 130. Chol/HDL ratio <5.0 Chol/HDL ratio 5.0-6.0 Chol/HDL ratio >6.0. Triglycerides <100 Triglycerides 100-149 Triglycerides >/= 150 - For Diabetes Mellitus Diabetes Risk Guidelines: Diabetes Low Risk: HgA1c <6.5% and/or FBG <120. Diabetes Moderate Risk: HgA1c 6.6-7.9% and/or FBG 120- 180. Diabetes High Risk: HgA1c >/= 8% and/or FBG >180 - For Obesity/Overweight Obesity/Overweight Risk Guidelines: Obesity Low Risk: BMI <25.0. Obesity Moderate Risk: BMI 25-29.9. Obesity High Risk: BMI >/= 30.0 - For Hypertension Hypertension Risk Guidelines: Hypertension Low Risk: Systolic <120 and Diastolic <80. Hypertension Moderate Risk: Systolic 120-139 and Diastolic 80-89. Hypertension High Risk: Systolic >/= 140 and Diastolic >/= 90 - For Sedentary Lifestyle Sedentary Lifestyle Risk Guidelines: Sedentary Lifestyle Low Risk: >/= 1,500 kcal/week. Sedentary Lifestyle Moderate Risk: 700-1,499 kcal/week. Sedentary Lifestyle High Risk: < 700 kcal/week - For Depression Depression Risk Guidelines: Depression Low Risk: Not clinically depressed. Depression Moderate Risk: Mildly depressed. Depression High Risk: Clinically depressed - Family History Family History: Family History (Last Updated 12/19/17 @ 13:55 by Suhail Warren NP-C) Mother Diabetes Atrial fibrillation Father Hypertension Brother Hypertension Social History - Smoking History Smoking Status: Never smoker Hx Tobacco Use: No Hx Smoking Exposure: No - Alcohol Use Alcohol Usage: No - Substance Abuse Hx Substance Use: No - Occupation Occupation (List type of work in comments):: Employed - [employer] Hours worked per day:: 8 - Hobbies, Recreation, Social Activities Hobbies: Other - painting, writing, yard work Recreational Activities: I am able to engage in all my recreational activities Marital Status - Status Marital Status: - Current Living Arrangements Living Environment:: Family - Children How many children do you have?: 3 Do any of your children live nearby?: Yes - Safety Do you feel safe in your surroundings?: Yes - Assistance Do you need any assistance at home?: no 12/27/17 1896 <Electronically signed by Pradeep SALDIVAR RVT> Date Pradeep Heather BS, RVT Outcome assessment reviewed. Exercise plan approved as documented. Treatment plan and goals support patient needs/abilities. Continue with current plan. I certify the patient demonstrates improvement and remains willing and capable of participation. the patient continues to benefit from cardiac rehab services/training. The patient may continue at current intensity, endurance and modality and progress per protocol. 01/08/18 1420 <Electronically signed by Kike Rivera MD> Cosigner Signature: Date Kike Rivera MD CC: Signed CARDIOLOGY VISIT Observed: 12/20/2017 Status: F Source: HAMDEN REPORT 2:08 PM [facility] REPOSITORY [facility] [address] [place] [address] OFFICE VISIT Date of Service: MR#: [id number] Acct: [id number] Name: CHRISTINE ANDREW Rep #: [id number] : 1965 Provider: PARRISH Warren Age/Sex: 52/M [place] [facility]: Signed HPI Amb Documentation: Details: CHRISTINE ANDREW, is a 52 M who presents to the office today for a cardiovascular outpatient follow-up. Patient has a history of severe mitral valve insufficiency, moderate tricuspid valve insufficiency, severe pulmonary hypertension, hypertension, and hyperlipidemia. Patient presented to [facility] in October 2017 for increasing shortness of breath and lower extremity pedal edema. He underwent left and right heart catheterization and was sent to [facility] for valve repair with Dr. Baeza. Patient underwent mitral valve repair, tricuspid valve repair, and left atrial appendage exclusion. Patient is here for follow-up. Pt denies chest, arm, jaw, or neck discomfort. His exercise tolerance is stable via walking twice a day for 30 minutes each. Pt denies symptoms of CHF, lightheadedness, dizziness, near syncopal or syncopal episodes. Pt denies edema or claudication issues. Pt. denies orthopnea, PND, fever, chills, blood in urine, blood in stool, myalgia, or unexplainable fatigue. Pt. states having episodes of palpitations when lying flat 2-3 night ago. This resolved when sitting up. He noticed some chest tightness when lying flat. This too resolved when sitting up. He denies any secondary symptoms during this episode. He states a shooting pain in his right leg at times. He states sleeping in a recliner d/t hip pain. He states occasional left pain in his shoulder. He states his improved energy is short lived and he continues to take naps to help his energy. He states increased urination during the night. [employer] is insurance company for cardiac rehab. Echocardiogram from November 09, 2017 at [facility] post valvular repair showed an estimated ejection fraction of 56%, mitral valve with mean and peak gradients of 5 and 10 mmHg, mitral valve area of 2.3 cm , small pericardial effusion, and mean transvalvular gradient of tricuspid valve of 2 mmHg. Intake Vital Signs12/19/17 Height 5 ft 8 in 12/19/17 Weight: 170 lb 12/19/17 Body Mass Index (BMI) 25.8 12/19/17 Blood Pressure 130/84 Intake Visit Reasons: Amb Documentation Dragline Operator Required: No Is patient in pain?: No Allergies No Known Allergies Allergy (Verified 10/25/17 18:15) Medications acetaminophen 325 mg tablet 650 mg PO Q4H PRN 12/19/17 [History Confirmed 12/19/17] aspirin 81 mg tablet,delayed release 81 mg PO QDAY 12/19/17 [History Confirmed 12/19/17] carvedilol 12.5 mg tablet 12.5 mg PO BID 12/19/17 [History Confirmed 12/19/17] furosemide 20 mg tablet 20 mg PO .every other day PRN tab 12/19/17 [History Confirmed 12/19/17] lisinopril 10 mg tablet 10 mg PO QDAY 12/19/17 [History Confirmed 12/19/17] potassium chloride ER 20 mEq tablet,extended release 20 meq PO QDAY tab 12/19/17 [History Confirmed 12/19/17] Ejection fraction %: 50 to 54 PFSH Medical History Nonrheumatic mitral (valve) insufficiency (Chronic) Mitral regurgitation (Acute) Lower extremity edema (Acute) MVP (mitral valve prolapse) (Acute) Pulmonary edema (Acute) SOB (shortness of breath) (Acute) Nonrheumatic tricuspid (valve) insufficiency (Chronic) Urinary retention (Chronic) Surgical History Left atrial appendage exclusion (Acute 11/02/17) S/P tricuspid valve repair (Chronic 11/02/17) S/P mitral valve repair (Chronic 11/02/17) Family History Mother Diabetes Atrial fibrillation Father Hypertension Brother Hypertension Social History Smoking Status: Never smoker ROS Const Const: Positive for fatigue; negative for weakness, body ache, fever(s) or chills ENT ENT: Negative for dizziness Cardio Chest Pain: Yes (When laying flat) Palpitations: Positive for Yes Edema: None Muscle aches with walking: None Resp Respiratory: Negative for SOB with activity, SOB at rest, SOB orthopnea\SOB lying down or paroxysmal nocturnal dyspnea GI GI: Positive for belching; negative nausea, black,tarry stools, bright, red blood in stools or vomiting blood/hematemesis : Positive for frequent nighttime urination/ nocturia; negative for hematuria Musc Musc: Negative for muscle aches/ myalgia Neuro Neuro: Negative for weakness, Negative for dizziness, Negative for lightheadedness, Negative for near syncope, Negative for syncope, Negative for orthostatic symptoms Endo Endo: Positive for fatigue Cardiology Exam Const Appearance: cooperative, healthy appearing, comfortable and no acute distress Orientation: alert, awake and oriented x3 Head Head: normal to inspection Mouth: oral mucosae normal Neck Neck: no JVD and normal visual inspection Carotids: normal carotid upstroke Chest Chest inspection: normal inspection of the chest and normal respiratory effort Auscultation: Bilateral: Clear to Auscultation Cardio Rate: regular rate Rhythm: regular rhythm Heart sounds: S1 normal and S2 normal; negative rub or gallop GI GI: normal to inspection Neuro General: alert, awake, oriented x3 and CN's II-XI intact bilaterally Skin Skin: no rashes or lesions noted Extremities Pulses: Normal: Right Posterior Tibial Pulse, Left Posterior Tibial Pulse, Right Radial Pulse, Left Radial Pulse Lower Extremity Edema: None: Bilateral Psych Psychological: normal affect Assessment AND Plan 1. Nonrheumatic mitral (valve) insufficiency I34.0 s/p repair 10/2017 @ [facility]; Plan - MATTHEW Linda Patient's most recent echocardiogram from October 2017 after valvular repair surgery showed a mean and peak gradients of 5 and 10 mmHg and a mitral valve area of 2.3 cm . Patient states that his overall energy and shortness of breath has improved. Patient will undergo cardiac rehab. We will evaluate patient's overall progress after cardiac rehab. We will also repeat echocardiogram after cardiac rehab. 2. Non-rheumatic tricuspid valve insufficiency I36.1 Plan - MATTHEW Linda Patient's echocardiogram from October 2017 after valvular repair surgery showed a mean transvalvular gradient of 2 mmHg. We will continue to monitor this through history, exam, and repeat echocardiogram as needed. 3. SOB (shortness of breath) on exertion R06.02 Plan - MATTHEW Linda Patient states this is much improved since his valvular repair surgery. His most recent echocardiogram prior to discharge from [facility] showed an estimated ejection fraction 56%. Hopefully patient's functional capacity increases with cardiac rehab. We will continue to monitor this. Orders Orders: 4. Other fatigue R53.83 Plan - MATTHEW Linda Overall this is much improved since his cardiovascular surgery. He does state that he requires some daytime naps. Patient will be undergoing cardiac rehab. Hopefully after cardiac rehab his energy and activity level increases/improves. 5. Lower extremity edema R60.0 Plan - MATTHEW Linda This is much improved. We will decrease his Lasix to 20 mg every other day. If he tolerates this we will change his Lasix to as needed. Patient was reminded of concerning symptoms such as increased weight gain, shortness of breath, and pedal edema regards to increasing/resuming his Lasix. 6. Urinary retention R33.9 Plan - MATTHEW Linda Patient did not have any urinary retention prior to surgery. He is not planning to follow-up with any urologist. He asked if he can stop his Flomax. He was advised that he can discontinue this, but continue to monitor his urinary output. He was instructed that if his urinary output decreases or is less than expected to resume medication and contact urologist for further evaluation. Plan Detail Other Orders Orders: Other Medications Discontinued: Additional Comments - MATTHEW Linda Discussed the above patient with Dr. Rivera, he agrees with the plan of care. Thank you for allowing us to participate in the patients plan of care, if you have any questions please do not hesitate to call. This note was generated using a voice recognition system and there may be incorrect words, spelling or punctuation that were not noted when reviewing the office note prior to saving. Follow Up 6 Months (DJN) Coding Level of Care Code Off vis,est,level 3 Diagnoses Nonrheumatic mitral (valve) insufficiency I34.0 Non-rheumatic tricuspid valve insufficiency I36.1 SOB (shortness of breath) on exertion R06.02 Other fatigue R53.83 Fatigue type: other Lower extremity edema R60.0 Urinary retention R33.9 12/19/17 1545 <Electronically signed by Suhail Warren BEACH LIFEGUARD-C> Date Suhail Warren BEACH LIFEGUARD-C 12/20/17 1408<Electronically signed by Kike Rivera MD> Cosigner Signature: Date (if applicable) Kike Rivera MD CC: ALLERGIES ALLERGIES DATE TYPE / CODE NAME / CODE REACTION SEVERITY SOURCE 11/19/2018 Drug midazolam/F00 Other Unknown [facility] All[facility]/4160 6660905(RXNO Hospital 91558(SNOMED M) Repository CT) 11/19/2018 Drug latex/[id number] Unknown Unknown [facility] Allergy/4160 921(RXNORM) Hospital 99542(SNOMED Repository CT) 10/25/2017 Drug No Known Unknown [facility] Allergy/4160 Allergies/F00 Hospital 08603(SNOMED 3145431(RXNOR Repository CT) M) ENCOUNTERS ENCOUNTERS ADMIT/DISCHARGE ACCOUNT ADMITTING ENCOUNTER LOCATION SOURCE NUMBER CLASS 11/19/2018/ [id number] Ambulatory BMSBuilding:B [place] 2 [facility] Repository 11/07/2018 [id number] Ambulatory BMSBuilding:B [place] 6 [facility] Repository 11/07/2018/ [id number] [place] 3 [facility] ing:SDCRoom: Repository AC-TBA 11/05/2018 [id number] Ambulatory BMSBuilding:B [place] 2 [facility] Repository 11/05/2018/ [id number] Ambulatory BMSBuilding:B [place] 3 [facility] Repository 10/24/2018 [id number] Ambulatory BMSBuilding:B [place] 1 [facility] Repository 10/23/2018 [id number] [place] 9 [facility] ing:MFPLAB Repository 10/17/2018/ [id number] Ambulatory BMSBuilding:B [place] 8 4 [facility] Repository 09/03/2018/ [id number] Ambulatory BMSBuilding:B [place] 8 2 [facility] Repository 08/23/2018/ [id number] Ambulatory BMSBuilding:B [place] 8 4 [facility] Repository 08/23/2018/ [id number] [place] 7 [facility] Hospital ing:SDCRoom: Repository [facility] 08/17/2018 [id number] Ambulatory BMSBuilding:W [place] 5 [facility] Repository 08/17/2018/ [id number] Ambulatory BMSBuilding:B [place] 8 2 [facility] Repository 08/17/2018/ [id number] Ambulatory [place] 8 7 [facility] Hospital ing:ENRoom: Repository [facility] 08/06/2018/ [id number] Ambulatory BMSBuilding:B [place] 8 1 [facility] Repository 07/25/2018 [id number] [place] 1 [facility] Hospital ing:PSN Repository 07/11/2018 [id number] Ambulatory [place] 4 [facility] Hospital ing:MFPLAB Repository 06/26/2018/ [id number] Ambulatory BMSBuilding:B [place] 8 1 [facility] Repository 06/25/2018 [id number] Ambulatory BMSBuilding:B [place] 1 [facility] Repository 05/09/2018 [id number] Ambulatory [place] 2 [facility] Hospital ing:PSN Repository 04/19/2018 [id number] Ambulatory [place] 4 [facility] Hospital ing:MFPLAB Repository 04/11/2018 [id number] [place] [facility] Repository 04/11/2018 [id number] Ambulatory BMSBuilding:W [place] 2 [facility] Repository 03/29/2018 [id number] Ambulatory [place] 2 [facility] ing:MFPLAB Repository 03/20/2018 [id number] Ambulatory [place] 2 [facility] ing:MFPLAB Repository 02/28/2018 [id number] Ambulatory [place] 0 [facility] ing:CR Repository 02/22/2018 [id number] Ambulatory [place] 2 [facility] ing:[facility] Repository 02/22/2018 [id number] Ambulatory BMSBuilding:B [place] 1 [facility] Repository 02/16/2018/ [id number] Ambulatory [place] 8 1 [facility] ing:CR Repository 01/29/2018 [id number] Ambulatory [place] 2 [facility] ing:MTRAD Repository 01/29/2018/ [id number] Ambulatory BMSBuilding:B [place] 8 5 [facility] Repository 01/19/2018 [id number] [place] 0 [facility] ing:LAB Repository 01/17/2018/ [id number] [place] 7 [facility] Hospital ing:CR Repository 12/27/2017 [id number] Ambulatory [place] 6 [facility] ing:CR Repository 12/19/2017/ [id number] Ambulatory BMSBuilding:B [place] 8 4 [facility] Repository 12/19/2017 [id number] Ambulatory BMSBuilding:B [place] 9 [facility] Repository 12/19/2017 [id number] Ambulatory BMSBuilding:B [place] 2 [facility] Repository PAYERS PAYERS ENCOUNTER GUARANTOR PAYER SUBSCRIBER SOURCE 11/19/2018 CHRISTINE [place] [id number] Insurance:MEDICAL TOUSLEYDOB: [facility] [id number] Number: Repository [address]Xia: 330 [id number] [phone] (HP) Date:[id number] [address] [address]GM: 11/19/2018 Secondary NOT GIVENUNK [place] Insurance:SELF PAY [facility] Number: Effective Repository Date:2018-11-16 11/07/2018 CHRISTINE Kerr Primary CHRISTINE [place] [id number] Insurance:MEDICAL TOUSLEYDOB: [facility] [place] Number: Repository [address]Rjd: 330 [id number] [phone] (HP) Date:1044-57-44DZ [address] [address]YX: 11/07/2018 Secondary NOT GIVENUNK [place] Insurance:SELF PAY [facility] Number: Effective Repository Date:2018-11-07 11/07/2018 CHRISTINE Kerr Primary CHRISTINE [place] [id number] Insurance:MEDICAL TOUSLEYDOB: [facility] 2232[place] Number: Repository [address]Nco: 330 [id number] [phone] (HP) Date:6448-48-20LI [address] [address]LY: 11/07/2018 Secondary NOT GIVENUNK [place] Insurance:SELF PAY [facility] Number: Effective Repository Date:2018-10-30 11/05/2018 CHRISTINE Kerr Primary CHRISTINE [place] [id number] Insurance:MEDICAL TOUSLEYDOB: [facility] 1689[place]42-31CSASh[place] Number: Repository [id number]: 330 [id number] [phone] (HP) Date:3774-60-45OY [address] [address]BE: 11/05/2018 Secondary NOT GIVENUNK [place] Insurance:SELF PAY [facility] Number: Effective Repository Date:2018-11-05 11/05/2018 CHRISTINE [place] [id number] Insurance:MEDICAL TOUSLEYDOB: [address] Number: Repository [id number]: 330 [id number] [phone] (HP) Date:3539-16-01BR [address] [address]SE: 11/05/2018 Secondary NOT GIVENUNK [place] Insurance:SELF PAY [facility] Number: Effective Repository Date:2018-11-05 10/24/2018 CHRISTINE Kerr Primary CHRISTINE [place] [id number] Insurance:MEDICAL TOUSLEYDOB: [address] Number: Repository [id number]: 330 [id number] [phone] (HP) Date:5013-67-47OE [address] [address]ZT: 10/24/2018 Secondary NOT GIVENUNK [place] Insurance:SELF PAY [facility] Number: Effective Repository Date:2018-10-24 10/23/2018 CHRISTINE Kerr Primary CHRISTINE [place] [id number] Insurance:MEDICAL TOUSLEYDOB: [address] Number: Repository [id number]: 330 [id number] [phone] (HP) Date:4558-83-40LQ [address] [address]QY: 10/23/2018 Secondary NOT GIVENUNK [place] Insurance:SELF PAY [facility] Number: Effective Repository Date:2018-10-23 10/17/2018 CHRISTINE Kerr Primary CHRISTINE [place] [id number] Insurance:MEDICAL TOUSLEYDOB: [address] Number: Repository [id number]: ([phone] [id number] [phone] (HP) Date:7312-59-25XT [address] [place] [address]SE: 10/17/2018 Secondary NOT GIVENUNK [place] Insurance:SELF PAY [facility] Number: Effective Repository Date:2018-10-16 09/03/2018 CHRISTINE Usha Primary CHRISTINE Kerr Quang [id number] Insurance:MEDICAL TOUSLEYDOB: [facility] 1431[place]82-[place]UNJ[place] Number: Repository [address]Tbo: 330 [id number] [phone] (HP) Date:6870-87-80QX [address] [place] [address]QE: 09/03/2018 Secondary NOT GIVENUNK [place] Insurance:SELF PAY [facility] Number: Effective Repository Date:2018-09-03 08/23/2018 CHRISTINE Kerr Primary CHRISTINE Kerr Quang [id number] Insurance:MEDICAL TOUSLEYDOB: [facility] 0798-24-64JFB[place] Number: Repository [address]Rgc: 330 [id number] [phone] Date:1121-31-42VB [address] [place] [address]UO: 08/23/2018 Secondary NOT GIVENUNK [place] Insurance:SELF PAY [facility] Number: Effective Repository Date:2018-08-23 08/23/2018 CHRISTINE Usha Primary CHRISTINE Kerr Quang [id number] Insurance:MEDICAL TOUSLEYDOB: [facility] 3601-79-43[place]FF[place] Number: Repository [address]Umi: ([phone] [id number] [phone] (HP) Date:8125-29-65LH [address] [place] [address]OY: 08/23/2018 Secondary NOT GIVENUNK [place] Insurance:SELF PAY [facility] Number: Effective Repository Date:2018-08-06 08/17/2018 CHRISTINE Kerr Primary CHRISTINE Kerr Quang [id number] Insurance:MEDICAL TOUSLEYDOB: [facility] 1512[place]01-97ZEJ[place] Number: Repository [address]Xif: 330 [id number] [phone] (HP) Date:3802-89-35WF [address] [address]JG: 08/17/2018 Secondary NOT GIVENUNK [place] Insurance:SELF PAY [facility] Number: Effective Repository Date:2018-08-17 08/17/2018 CHRISTINE Kerr Primary CHRISTINE [place] [id number] Insurance:MEDICAL TOUSLEYDOB: [facility] 7191-51-84LUR[place] Number: Repository [id number]: 330 [id number] [phone]) Date:4276-41-86XB [address] [address]ZN: 08/17/2018 Secondary NOT GIVENUNK [place] Insurance:SELF PAY [facility] Number: Effective Repository Date:2018-08-17 08/17/2018 CHRISTINE Kerr Primary CHRISTINE [place] [id number] Insurance:MEDICAL TOUSLEYDOB: [facility] 1166-90-[place]IFR[place] Number: Repository [address]Lfh: 330 [id number] [phone] (HP) Date:1446-33-88GY [address] [address]HX: 08/17/2018 Secondary NOT GIVENUNK [place] Insurance:SELF PAY [facility] Number: Effective Repository Date:2018-08-07 08/06/2018 CHRISTINE Kerr Primary CHRISTINE [place] [id number] Insurance:MEDICAL TOUSLEYDOB: [facility] 3681-96-82IEJ[place] Number: Repository [address]Vew: 330 [id number] [phone] (HP) Date:1155-22-76VA [address] [address]RT: 08/06/2018 Secondary NOT GIVENUNK [place] Insurance:SELF PAY [facility] Number: Effective Repository Date:2018-08-06 07/25/2018 CHRISTINE Kerr Primary CHRISTINE [place] [id number] Insurance:MEDICAL TOUSLEYDOB: [address] Number: Repository [id number]: 330 [id number] [phone] (HP) Date:9229-86-45TY [address] [address]AH: 07/25/2018 Secondary NOT GIVENUNK [place] Insurance:SELF PAY [facility] Number: Effective Repository Date:2018-04-02 07/11/2018 CHRISTINE Kerr Primary CHRISTINE [place] [id number] Insurance:MEDICAL TOUSLEYDOB: [address] Number: Repository [id number]: 330 [id number] [phone] (HP) Date:9342-19-84TE [address] [address]MX: 07/11/2018 Secondary NOT GIVENUNK Uqang Insurance:SELF PAY [facility] Number: Effective Repository Date:2018-07-11 06/26/2018 CHRISTINE Kerr Primary CHRISTINE [place] [id number] Insurance:MEDICAL TOUSLEYDOB: [address] Number: Repository [id number]: 330 [id number] [phone] (HP) Date:1345-43-19TZ [address] [address]DH: 06/26/2018 Secondary NOT GIVENUNK [place] Insurance:SELF PAY [facility] Number: Effective Repository Date:2018-06-26 06/25/2018 CHRISTINE Kerr Primary CHRISTINE [place] [id number] Insurance:MEDICAL TOUSLEYDOB: [address] Number: Repository [id number]: 330 [id number] [phone] (HP) Date:8236-39-96PL [address] [address]TS: 06/25/2018 Secondary NOT GIVENUNK [place] Insurance:SELF PAY [facility] Number: Effective Repository Date:2018-06-25 05/09/2018 CHRISTINE Kerr Primary CHRISTINE [place] [id number] Insurance:MEDICAL TOUSLEYDOB: [address] Number: Repository [address]Nis: 330 [id number] [phone] () Date:8397-94-70HA [address] [address]KW: 05/09/2018 Secondary NOT GIVENUNK [place] Insurance:SELF PAY [facility] Number: Effective Repository Date:2018-04-02 04/19/2018 CHRISTINE Kerr Primary CHRISTINE [place] [id number] Insurance:MEDICAL TOUSLEYDOB: [address] Number: Repository [id number]: 330 [id number] [phone] () Date:2748-19-53RC [address] [address]CH: 04/19/2018 Secondary NOT GIVENUNK [place] Insurance:SELF PAY [facility] Number: Effective Repository Date:2018-04-19 04/11/2018 CHRISTINE Kerr Primary CHRISTINE [place] [id number] Insurance:MEDICAL TOUSLEYDOB: [address] Number: Repository [id number]: 330 [id number] [phone] () Date:0705-66-46DU [address] [address]BV: 04/11/2018 Secondary NOT GIVENUNK [place] Insurance:SELF PAY [facility] Number: Effective Repository Date:2017-12-19 04/11/2018 CHRISTINE Kerr Primary CHRISTINE [place] [id number] Insurance:MEDICAL TOUSLEYDOB: [address] Number: Repository [id number]: [phone] [id number] [phone] (HP) Date:8589-73-36RS [address] [address]GZ: 04/11/2018 Secondary NOT GIVENUNK [place] Insurance:SELF PAY [facility] Number: Effective Repository Date:2018-04-11 03/29/2018 CHRISTINE Kerr Primary CHRISTINE [place] [id number] Insurance:MEDICAL TOUSLEYDOB: [address] Number: Repository [address]Syu: [phone] [id number] [phone] (HP) Date:8860-44-21PA [address] [address]ES: 03/29/2018 Secondary NOT GIVENUNK [place] Insurance:SELF PAY [facility] Number: Effective Repository Date:2018-03-29 03/20/2018 CHRISTINE Kerr Primary CHRISTINE [place] [id number] Insurance:MEDICAL TOUSLEYDOB: [address] Number: Repository [id number]: 330 [id number] [phone] (HP) Date:8883-75-76JU [address] [address]OY: 03/20/2018 Secondary NOT GIVENUNK [place] Insurance:SELF PAY [facility] Number: Effective Repository Date:2018-03-20 02/28/2018 CHRISTINE Kerr Primary CHRISTINE [place] [id number] Insurance:MEDICAL TOUSLEYDOB: [facility] [id number] Number: Repository [id number]: ([phone] [id number] [phone] (HP) Date:4132-57-45NL [address] [address]QS: 02/28/2018 Secondary NOT GIVENUNK [place] Insurance:SELF PAY [facility] Number: Effective Repository Date:2018-02-18 02/22/2018 CHRISTINE Kerr Primary CHRISTINE [place] [id number] Insurance:MEDICAL TOUSLEYDOB: [facility] 9499-99-34[place]WM[place] Number: Repository [id number]: 330 [id number] [phone] (HP) Date:1220-73-23OM [address] [address]QO: 02/22/2018 Secondary NOT GIVENUNK [place] Insurance:SELF PAY [facility] Number: Effective Repository Date:2018-02-13 02/22/2018 CHRISTINE Kerr Primary CHRISTINE Kerr Quang [id number] Insurance:MEDICAL TOUSLEYDOB: [facility] 7605-07-[place]OCB[place] Number: Repository [id number]: 330 [id number] [phone] (HP) Date:3603-01-00QF [address] [address]MY: 02/22/2018 Secondary NOT GIVENUNK [place] Insurance:SELF PAY [facility] Number: Effective Repository Date:2018-02-22 02/16/2018 CHRISTINE Kerr Primary CHRISTINE [place] [id number] Insurance:MEDICAL TOUSLEYDOB: [address] Number: Repository [id number]: 330 [id number] [phone] (HP) Date:1830-81-80KQ [address] [address]OU: 02/16/2018 Secondary NOT GIVENUNK [place] Insurance:SELF PAY [facility] Number: Effective Repository Date:2018-01-18 01/29/2018 CHRISTINE [place] [id number] Insurance:MEDICAL TOUSLEYDOB: [address] Number: Repository [id number]: 330 [id number] [phone] (HP) Date:5310-27-88AX [address] [address]BH: 01/29/2018 Secondary NOT GIVENUNK [place] Insurance:SELF PAY [facility] Number: Effective Repository Date:2018-01-29 01/29/2018 CHRISTINE Primary CHRISTINE [place] [id number] Insurance:MEDICAL TOUSLEYDOB: [address] Number: Repository [id number]: 330 [id number] [phone] (HP) Date:6132-52-08XZ [place] 723[address]01-[address]WP: 01/29/2018 Secondary NOT GIVENUNK [place] Insurance:SELF PAY [facility] Number: Effective Repository Date:2018-01-29 01/19/2018 CHRISTINE Primary [place]RISTINE [place] [id number] Insurance:MEDICAL TOUSLEYDOB: [address] Number: Repository [id number]: 330 [id number] [phone] (HP) Date:2632-40-63VTSeth [place] 209[address]WP: 01/19/2018 Secondary NOT GIVENUNK [place] Insurance:SELF PAY [facility] Number: Effective Repository Date:2018-01-19 01/17/2018 CHRISTINE Primary CHRISTINE [place] [id number] Insurance:MEDICAL TOUSLEYDOB: [address] Number: Repository [id number]: 330 [id number] [phone] (HP) Date:5040-42-72DL[address] [address]YX: 01/17/2018 Secondary NOT GIVENUNK [place] Insurance:SELF PAY [facility] Number: Effective Repository Date:2017-12-27 12/27/2017 CHRISTINE Primary CHRISTINE [place] [id number] Insurance:MEDICAL TOUSLEYDOB: [address] Number: Repository [id number]: [phone] [id number] [phone] (HP) Date:6870-98-68KP [address] [place] [address]HP: 12/27/2017 Secondary NOT GIVENUNK [place] Insurance:SELF PAY [facility] Number: Effective Repository Date:2017-12-25 12/19/2017 CHRISTINE Primary CHRISTINE [place] [id number] Insurance:MEDICAL TOUSLEYDOB: [facility] 7239-65-58IWR[place] Number: Repository [id number]: [phone] [id number] [phone]) Date:0380-41-77MY [address] [address]AO: 12/19/2017 Secondary NOT GIVENUNK [place] Insurance:SELF PAY [facility] Number: Effective Repository Date:2017-12-19 12/19/2017 CHRISTINE Primary NOT GIVENUNK [place] [id number] Insurance[place] Number: Effective Repository [id number]: (330) Date:2017-12-19 [phone] (HP) 12/19/2017 CHRISTINE Primary NOT GIVENUNK [place] [id number] Insurance[place] Number: Effective Repository [id number]: (330) Date:2017-12-19 [phone] (HP)
== END 2018-11-07 17:44 | disposition home or self-care (01) ==
LOC: SDC 12:52 → ACINP 13:08 → AC 13:12
PROVIDERS: Family Provider Family Medicine; PCP Family Medicine; Referring Provider Surgery; Visit Provider Surgery
PROC: (CPT 49505; principal; 2018-11-07 14:30)
DX: K40.90 Unilateral inguinal hernia, without obstruction or gangrene, not specified as recurrent (principal); Z79.82 Long term (current) use of aspirin; Z79.899 Other long term (current) drug therapy; I10 Essential (primary) hypertension; I49.9 Cardiac arrhythmia, unspecified; K58.9 Irritable bowel syndrome, unspecified
CPT/HCPCS: 00830; 49505; J7120; C1781

== ENCOUNTER → 2019-04-08 | Outpatient (CLI) | payer OTHER, SELFPAY ==
[2018-12-25 15:09] VITALS: BMI 31.7
--- NOTE | 2019-04-08 15:18 | ECHOD_ITS ---
Reason For Study: PHTN, S/P MV/TV repair. Procedure This was a 2D Doppler, Color Flow transthoracic echocardiogram. Exam performed in department. Left Ventricle Mild concentric left ventricular hypertrophy. The estimated ejection fraction is 50-55 %. Septal motion consistent with IVCD. No regional wall motion abnormalities noted. Right Ventricle Normal size and thickness. Normal systolic function. Atria Normal left atrium. Normal right atrium. Normal atrial septum. Mitral Valve Peak transmitral valve gradient 10 mmHg. Mean transmitral valve gradient 4 mmHg. No significant mitral valve stenosis. An annuloplasty ring is noted in the mitral position. Tricuspid Valve Trivial tricuspid valve insufficiency. Right ventricular systolic pressure estimated to be 35 mmHg. An annuloplasty ring is noted in the tricuspid position. Aortic Valve Normal aortic valve. Trisinus/trileaflet aortic valve. Pulmonic Valve Normal pulmonic valve. Great Vessels Normal aortic root. Normal arch. Normal inferior vena cava. No collapse of the inferior vena cava. Pericardium/Pleural No pericardial effusion. MMode/2D Measurements & Calculations LVIDd: 4.7 cm IVSd: 1.3 cm Ao root diam: 2.9 cm LVIDs: 3.2 cm LVPWd: 1.4 cm RVDd: 3.2 cm FS: 32.8 % LAV(MOD-bp): 75.7 ml LA A4 area: 20.4 cm2 LA dimension(2D): 4.3 cm LAV(MOD-bp) Indexed: 36.4 ml/m2 LAV(MOD-sp2): 86.4 ml LAV(MOD-sp4): 63.3 ml RA A4 area: 17.2 cm2 Time Measurements MV dec time: 0.22 sec Doppler Measurements & Calculations MV E max cricket: 148.3 cm/sec Lat Peak E' Cricket: 6.1 cm/sec Med Peak E' Cricket: 7.4 cm/sec MV A max cricket: 128.2 cm/sec E/E' lat: 24.3 E/E' med: 20.0 MV E/A: 1.2 MV V2 max: 160.9 cm/sec MV P1/2t max cricket: 157.3 cm/sec Ao V2 max: 125.9 cm/sec MV max P.4 mmHg MV P1/2t: 73.1 msec Ao max P.3 mmHg MV V2 mean: 93.2 cm/sec MV dec slope: 630.6 cm/sec2 MV mean P.0 mmHg MV V2 VTI: 44.0 cm MVA(P1/2t): 3.0 cm2 LV V1 max: 96.1 cm/sec PA V2 max: 80.7 cm/sec TR max cricket: 243.7 cm/sec LV V1 max P.7 mmHg TR max P.2 mmHg Interpretation Summary The estimated ejection fraction is 50-55 %. Normal functioning mitral and tricuspid valve ring repairs. Peak transmitral valve gradient 10 mmHg. Mean transmitral valve gradient 4 mmHg. No significant mitral valve stenosis. Right ventricular systolic pressure estimated to be 35 mmHg. Compared to echo report dated 04/11/2018, no appreciable changes noted. Ordering Physician: Kike Rivera Referring Physician: Suhail Borges Performed By: Romina Holt, KIERA, RVT
== END | disposition home or self-care (01) ==
PROVIDERS: Family Provider Family Medicine; PCP Family Medicine; Referring Provider Internal Medicine Cardiovascular Disease; Visit Provider Internal Medicine Cardiovascular Disease
DX: Z98.890 Other specified postprocedural states (principal)
CPT/HCPCS: 93306

== ENCOUNTER → 2019-04-17 | Outpatient (CLI) | payer OTHER, SELFPAY ==
[2018-12-25 15:09] VITALS: BMI 31.7
[2019-04-17 16:21] LABS: Hemoglobin A1c 5.5 % (4.2-6.3)
[2019-04-17 16:35] LABS: ALB/GLOB Ratio 1.1 RATIO (0.9-2.4); AST(SGOT) 25 U/L (15-37); Alanine Aminotransfer ALT/SGPT 43 U/L (16-61); Alkaline Phosphatase 94 U/L (45-117); Anion Gap 7 (5-15); BUN 17 mg/dL (7-18); BUN/Creat Ratio 17.4 RATIO (10-20); Calcium,Total 9.1 mg/dL (8.5-10.1); Chloride 105 mmol/L (98-107); Creatinine, Serum 0.98 mg/dL (0.70-1.30); EST Glomerular Filtration Rate 85 mL/min (>60); Est Glom Filt Rate - Afr Amer 102 mL/min (>60); Globulin 3.5 g/dL (2.2-4.2); Glucose 106 mg/dL (74-106); Potassium 3.9 mmol/L (3.5-5.1); Protein, Total 7.5 g/dL (6.4-8.2); Sodium Level 141 mmol/L (136-145)
== END | disposition home or self-care (01) ==
LOC: MFPLAB 14:12
PROVIDERS: Family Provider Family Medicine; PCP Family Medicine; Referring Provider Family Medicine; Visit Provider Family Medicine
DX: I10 Essential (primary) hypertension (principal); R73.02 Impaired glucose tolerance (oral)
CPT/HCPCS: 36415; 80053; 83036

== ENCOUNTER → 2019-08-09 07:17 | Outpatient (CLI) | payer OTHER, SELFPAY ==
[2019-08-01 15:17] VITALS: BMI 32.8
[2019-08-09 09:00] LABS: AST(SGOT) 24 U/L (15-37); Alanine Aminotransfer ALT/SGPT 36 U/L (16-61); Albumin, Serum 3.8 g/dL (3.2-5.0); Alkaline Phosphatase 98 U/L (45-117); Bilirubin, Direct 0.25 mg/dL (0.00-0.30); Cholesterol 140 mg/dL (200); Globulin 3.9 g/dL (2.2-4.2); High Density Lipoprotein 39 mg/dL; Protein, Total 7.7 g/dL (6.4-8.2); Triglycerides 105 mg/dL; Very Low Density Lipoprotein 21 mg/dL (5-40)
== END ==
PROVIDERS: Family Provider Family Medicine; PCP Family Medicine; Referring Provider Radiology Diagnostic Radiology; Visit Provider Internal Medicine Cardiovascular Disease
DX: E78.00 Pure hypercholesterolemia, unspecified (principal)
CPT/HCPCS: 36415; 80061; 80076

== ENCOUNTER → 2019-10-07 10:34 | Outpatient (CLI) | payer SELFPAY ==
[2019-08-01 15:17] VITALS: BMI 32.8
[2019-10-07 12:47] LABS: Absolute Lymphocyte Count 1.64 X10^3/uL (0.83-4.51); Absolute Neutrophil Count 4.5 X10^3/uL (2.0-7.7); Basophil# 0.09 X10^3/uL; Basophil% 1.3 % (0-1); Eosinophil# 0.29 X10^3/uL; Hemoglobin 14.3 g/dL (13.0-16.5); Lymphocyte # 1.64 X10^3/ul (4.0); Lymphocyte % 22.8 % (19-41); Mean Corp Hgb Conc 32.5 g/dL (32-36); Mean Corpuscular Hgb 29.1 pg (27.0-32.0); Mean Corpuscular Volume 89.6 fL (80-94); Mean Platelet Vol. 10.2 fl (6.2-12.0); Monocyte# 0.63 X10^3/uL; Monocyte% 8.8 % (0-10); NRBC Flagged by Analyzer 0 % (0-5); Neutrophil # 4.53 X10^3/uL (2.7-7.7); Platelet Count 192 K/mm3 (150-450); RBC Distribution Width CV 12.8 % (11.6-14.6); RBC Distribution Width SD 42.2 fl (35.1-43.9); Red Blood Count 4.91 M/mm3 (4.6-6.2); White Blood Count 7.2 K/mm3 (4.4-11.0)
[2019-10-07 12:57] LABS: Hemoglobin A1c 5.6 % (4.2-6.3)
[2019-10-07 13:09] LABS: AST(SGOT) 24 U/L (15-37); Alanine Aminotransfer ALT/SGPT 36 U/L (16-61); Alkaline Phosphatase 94 U/L (45-117); Anion Gap 7 (5-15); BUN 17 mg/dL (7-18); BUN/Creat Ratio 16.3 RATIO (10-20); Chloride 104 mmol/L (98-107); Creatinine, Serum 1.04 mg/dL (0.70-1.30); EST Glomerular Filtration Rate 79 mL/min (>60); Est Glom Filt Rate - Afr Amer 95 mL/min (>60); Glucose 127 mg/dL (74-106); Potassium 3.9 mmol/L (3.5-5.1); Sodium Level 139 mmol/L (136-145)
== END ==
PROVIDERS: Family Provider Family Medicine; PCP Family Medicine; Visit Provider Family Medicine
DX: I10 Essential (primary) hypertension (principal); R73.02 Impaired glucose tolerance (oral)
CPT/HCPCS: 36415; 80053; 83036; 85025

== ENCOUNTER → 2020-03-31 10:01 | Outpatient (CLI) | payer SELFPAY ==
[2020-03-17 08:36] VITALS: BMI 33.1
[2020-03-31 12:15] LABS: AST(SGOT) 21 U/L (15-37); Alanine Aminotransfer ALT/SGPT 39 U/L (16-61); Albumin, Serum 3.9 g/dL (3.2-5.0); Alkaline Phosphatase 88 U/L (45-117); Anion Gap 6 (5-15); BUN 17 mg/dL (7-18); BUN/Creat Ratio 15.6 RATIO (10-20); Calcium,Total 9.5 mg/dL (8.5-10.1); Chloride 103 mmol/L (98-107); Creatinine, Serum 1.09 mg/dL (0.70-1.30); EST Glomerular Filtration Rate 75 mL/min (>60); Est Glom Filt Rate - Afr Amer 90 mL/min (>60); Globulin 3.9 g/dL (2.2-4.2); Glucose 108 mg/dL (74-106); Potassium 3.9 mmol/L (3.5-5.1); Protein, Total 7.8 g/dL (6.4-8.2); Sodium Level 139 mmol/L (136-145)
[2020-03-31 12:18] LABS: Hemoglobin A1c 6.2 % (4.2-6.3)
== END ==
PROVIDERS: PCP Family Medicine; Visit Provider Family Medicine
DX: I10 Essential (primary) hypertension (principal); R73.02 Impaired glucose tolerance (oral)
CPT/HCPCS: 36415; 80053; 83036

== ENCOUNTER → 2020-04-10 15:01 | Outpatient (CLI) | payer SELFPAY ==
[2020-03-17 08:36] VITALS: BMI 33.1
--- NOTE | 2020-04-10 15:04 | ECHOD_ITS ---
Reason For Study: VALVE REPL Procedure This was a 2D Doppler, Color Flow transthoracic echocardiogram. The study was technically difficult. Exam performed in department. Left Ventricle Normal size and thickness. The estimated ejection fraction is 65 %. Septal motion consistent with IVCD. No regional wall motion abnormalities noted. Right Ventricle Normal size and thickness. Normal systolic function. Atria The left atrium is mildly enlarged. Normal right atrium. Normal atrial septum. Mitral Valve Peak transmitral valve gradient 8 mmHg. Mean transmitral valve gradient 4 mmHg. Status post mitral valve repair with annuloplasty ring. Tricuspid Valve Normal tricuspid valve. Trivial tricuspid valve insufficiency. Right ventricular systolic pressure estimated to be 33 mmHg. Aortic Valve Trisinus/trileaflet aortic valve. Pulmonic Valve Normal pulmonic valve. Great Vessels Normal aortic root. Normal arch. Normal inferior vena cava. Inferior vena cava collapse with sniff. Pericardium/Pleural No pericardial effusion. MMode/2D Measurements & Calculations LVIDd: 4.7 cm IVSd: 1.1 cm Ao root diam: 3.3 cm LVIDs: 3.3 cm LVPWd: 1.1 cm FS: 30.9 % LAV(MOD-bp): 73.6 ml LVAd ap4: 30.0 cm2 SV(MOD-sp4): 63.6 ml LAV(MOD-bp) Indexed: 34.6 ml/m2 EDV(MOD-sp4): 98.6 ml LAV(MOD-sp2): 63.1 ml EDV(sp4-el): 98.7 ml LAV(MOD-sp4): 80.2 ml LVAs ap4: 17.0 cm2 ESV(MOD-sp4): 35.0 ml ESV(sp4-el): 35.3 ml EF(MOD-sp4): 64.5 % EF(sp4-el): 64.2 % SV(sp4-el): 63.4 ml LA A4 area: 24.9 cm2 LA dimension(2D): 4.8 cm RA A4 area: 16.0 cm2 Doppler Measurements & Calculations Lat Peak E' Cricket: 7.7 cm/sec Med Peak E' Cricket: 4.6 cm/sec MV V2 max: 143.6 cm/sec MV max P.3 mmHg MV V2 mean: 94.1 cm/sec MV mean P.9 mmHg MV V2 VTI: 47.0 cm Ao V2 max: 122.2 cm/sec LV V1 max: 96.6 cm/sec PA V2 max: 99.8 cm/sec Ao max P.0 mmHg LV V1 max P.7 mmHg TR max cricket: 259.9 cm/sec MV P1/2t-pr_phl: 108.6 msec TR max P.7 mmHg Interpretation Summary The estimated ejection fraction is 65 %. The left atrium is mildly enlarged. Peak transmitral valve gradient 8 mmHg. Mean transmitral valve gradient 4 mmHg. Trivial tricuspid valve insufficiency. Right ventricular systolic pressure estimated to be 33 mmHg. Compared to echo report dated 04/08/2019, LV function has remained the same, mitral valve gradient across the annuloplasty ring has remained about the same, RVSP is about the same. No appreciable changes noted. Ordering Physician: Kike Rivera Referring Physician: PEPE DOHERTY Performed By: Sana Reagan, RDCS, RVT
== END ==
PROVIDERS: PCP Family Medicine; Referring Provider Internal Medicine Cardiovascular Disease; Visit Provider Internal Medicine Cardiovascular Disease
DX: Z98.890 Other specified postprocedural states (principal)
CPT/HCPCS: 93306

== ENCOUNTER → 2020-09-07 08:55 | Outpatient (CLI) | payer SELFPAY ==
[2020-03-17 08:36] VITALS: BMI 33.1
[2020-09-07 10:02] LABS: AST(SGOT) 18 U/L (15-37); Alanine Aminotransfer ALT/SGPT 41 U/L (16-61); Albumin, Serum 3.9 g/dL (3.2-5.0); Alkaline Phosphatase 91 U/L (45-117); Bilirubin, Direct 0.22 mg/dL (0.00-0.30); Cholesterol 136 mg/dL (200); Globulin 3.8 g/dL (2.2-4.2); High Density Lipoprotein 41 mg/dL; Protein, Total 7.7 g/dL (6.4-8.2); Triglycerides 106 mg/dL; Very Low Density Lipoprotein 21 mg/dL (5-40)
[2020-09-07 13:57] LABS: Hemoglobin A1c 5.6 % (3.8-5.6)
== END ==
PROVIDERS: Internal Medicine Cardiovascular Disease; PCP Family Medicine; Visit Provider Family Medicine
DX: E78.00 Pure hypercholesterolemia, unspecified (principal); I34.0 Nonrheumatic mitral (valve) insufficiency; R06.02 Shortness of breath; Z98.890 Other specified postprocedural states; R73.02 Impaired glucose tolerance (oral)
CPT/HCPCS: 36415; 80061; 80076; 83036

== ENCOUNTER → 2021-04-01 08:47 | Outpatient (CLI) | payer SELFPAY ==
[2020-09-11 14:22] VITALS: BMI 32.3
[2021-04-01 08:50] LABS: Bacteria 0 SEEN /hpf (None Seen); Mucous, Urine 0 SEEN /hpf (<or=2+); Red Blood Cells-Urine 0 SEEN /hpf (0-5); White Blood Cells 0 SEEN /hpf (0-5)
[2021-04-01 10:04] LABS: Absolute Lymphocyte Count 1.88 X10^3/uL (0.83-4.51); Absolute Neutrophil Count 4.1 X10^3/uL (2.0-7.7); Basophil# 0.08 X10^3/uL; Basophil% 1.1 % (0-1); Eosinophil# 0.36 X10^3/uL; Hemoglobin 14.9 g/dL (13.0-16.5); Lymphocyte # 1.88 X10^3/ul (0.83-4.51); Lymphocyte % 26.3 % (19-41); Mean Corp Hgb Conc 31.7 g/dL (32-36); Mean Corpuscular Hgb 28.7 pg (27.0-32.0); Mean Corpuscular Volume 90.4 fL (80-94); Mean Platelet Vol. 9.7 fl (6.2-12.0); Monocyte# 0.69 X10^3/uL; Monocyte% 9.7 % (0-10); NRBC Flagged by Analyzer 0 % (0-5); Neutrophil # 4.12 X10^3/uL (2.7-7.7); Neutrophil % 57.8 % (47-70); Platelet Count 199 K/mm3 (150-450); RBC Distribution Width CV 12.4 % (11.6-14.6); White Blood Count 7.1 K/mm3 (4.4-11.0)
[2021-04-01 10:35] LABS: ALB/GLOB Ratio 1.1 RATIO (0.9-2.4); AST(SGOT) 21 U/L (15-37); Alanine Aminotransfer ALT/SGPT 43 U/L (16-61); Albumin, Serum 4.1 g/dL (3.2-5.0); Alkaline Phosphatase 76 U/L (45-117); Anion Gap 5 (5-15); BUN 18 mg/dL (7-18); BUN/Creat Ratio 18.3 RATIO (10-20); Calcium,Total 9.1 mg/dL (8.5-10.1); Chloride 105 mmol/L (98-107); Creatinine, Serum 0.98 mg/dL (0.70-1.30); EST Glomerular Filtration Rate 83 mL/min (>60); Est Glom Filt Rate - Afr Amer 101 mL/min (>60); Globulin 3.7 g/dL (2.2-4.2); Glucose 138 mg/dL (74-106); Potassium 3.8 mmol/L (3.5-5.1); Protein, Total 7.8 g/dL (6.4-8.2); Sodium Level 138 mmol/L (136-145)
[2021-04-01 10:37] LABS: Hemoglobin A1c 6.2 % (3.8-5.6)
[2021-04-01 10:42] LABS: Color, Urine Yellow (Yellow); Glucose, Dipstick Normal (Normal); Ketone-Dipstick Negative (Negative); Leukocyte Esterase-Dipstick Negative /ul (Negative); Nitrite-Dipstick Negative (Negative); Occult Blood-Urine Negative /ul (Negative); Protein-Dipstick Negative (Negative); Specific Gravity, Urine 1.015 (1.002-1.030); Urine Bilirubin Dipstick Negative (Negative); Urine Clarity Clear (Clear); Urine Urobilinogen Normal (Normal)
[2021-04-01 11:00] LABS: Squamous Epithelial Cells - UA 0-5 SEEN /hpf (0-5)
== END ==
PROVIDERS: PCP Family Medicine; Referring Provider Family Medicine; Visit Provider Family Medicine
DX: I10 Essential (primary) hypertension (principal); R73.02 Impaired glucose tolerance (oral)
CPT/HCPCS: 36415; 80053; 81001; 83036; 85025

== ENCOUNTER 2021-12-15 09:37 | Outpatient (CLI) | payer SELFPAY ==
[2021-12-15 09:40] LABS: Bacteria 0 SEEN /hpf (None Seen); Mucous, Urine 0 SEEN /hpf (<or=2+); Red Blood Cells-Urine 0 SEEN /hpf (0-5); Squamous Epithelial Cells - UA 0 SEEN /hpf (0-5); White Blood Cells 0 SEEN /hpf (0-5)
[2021-12-15 10:06] LABS: Absolute Neutrophil Count 4.3 X10^3/uL (2.0-7.7); Basophil# 0.08 X10^3/uL; Basophil% 1.2 % (0-1); Eosinophil# 0.24 X10^3/uL; Eosinophils% 3.5 % (0-5); Hematocrit 44.7 % (40-54); Lymphocyte % 23.6 % (19-41); Mean Corp Hgb Conc 33.6 g/dL (32-36); Mean Corpuscular Hgb 29.5 pg (27.0-32.0); Mean Platelet Vol. 9.6 fl (6.2-12.0); Monocyte# 0.59 X10^3/uL; Monocyte% 8.7 % (0-10); NRBC Flagged by Analyzer 0 % (0-5); Neutrophil # 4.26 X10^3/uL (2.7-7.7); Neutrophil % 62.7 % (47-70); Platelet Count 208 K/mm3 (150-450); RBC Distribution Width CV 12.7 % (11.6-14.6); RBC Distribution Width SD 41.2 fl (35.1-43.9); Red Blood Count 5.08 M/mm3 (4.6-6.2); White Blood Count 6.8 K/mm3 (4.4-11.0)
[2021-12-15 11:18] LABS: ALB/GLOB Ratio 1.1 RATIO (0.9-2.4); AST(SGOT) 23 U/L (15-37); Alanine Aminotransfer ALT/SGPT 54 U/L (16-61); Albumin, Serum 3.9 g/dL (3.2-5.0); Alkaline Phosphatase 74 U/L (45-117); Anion Gap 11 (5-15); BUN 17 mg/dL (7-18); BUN/Creat Ratio 18.2 RATIO (10-20); Calcium,Total 8.9 mg/dL (8.5-10.1); Chloride 105 mmol/L (98-107); Cholesterol 150 mg/dL (200); Creatinine, Serum 0.93 mg/dL (0.70-1.30); EST Glomerular Filtration Rate 89 mL/min (>60); Est Glom Filt Rate - Afr Amer 107 mL/min (>60); Globulin 3.5 g/dL (2.2-4.2); Glucose 140 mg/dL (74-106); High Density Lipoprotein 40 mg/dL; Potassium 3.8 mmol/L (3.5-5.1); Protein, Total 7.4 g/dL (6.4-8.2); Sodium Level 140 mmol/L (136-145); Thyroid Stim Hormone (TSH) 2.53 uIU/mL (0.358-3.74); Triglycerides 90 mg/dL; Very Low Density Lipoprotein 18 mg/dL (5-40)
[2021-12-15 12:01] LABS: Color, Urine Yellow (Yellow); Glucose, Dipstick Normal (Normal); Ketone-Dipstick Negative (Negative); Leukocyte Esterase-Dipstick Negative /ul (Negative); Nitrite-Dipstick Negative (Negative); Occult Blood-Urine Negative /ul (Negative); Protein-Dipstick Negative (Negative); Urine Bilirubin Dipstick Negative (Negative); Urine Clarity Clear (Clear); Urine Urobilinogen Normal (Normal)
== END 2021-12-15 23:59 | disposition short-term general hospital (02) ==
LOC: MFPLAB 09:38
PROVIDERS: PCP Family Medicine; Referring Provider Family Medicine; Visit Provider Family Medicine
DX: I10 Essential (primary) hypertension (principal); R73.02 Impaired glucose tolerance (oral)
CPT/HCPCS: 36415; 80053; 80061; 81001; 83036; 84443; 85025

== ENCOUNTER 2022-06-17 13:57 | Outpatient (CLI) | payer SELFPAY ==
[2022-06-17 15:24] LABS: Hemoglobin A1c 11.1 % (3.8-5.6)
[2022-06-17 15:42] LABS: BUN 20 mg/dL (7-18); BUN/Creat Ratio 17.7 RATIO (10-20); Creatinine, Serum 1.13 mg/dL (0.70-1.30); EST Glomerular Filtration Rate 71 mL/min (>60); Est Glom Filt Rate - Afr Amer 86 mL/min (>60); Glucose 334 mg/dL (74-106); Protein, Total 7.5 g/dL (6.4-8.2)
[2022-06-17 15:43] LABS: ALB/GLOB Ratio 1.1 RATIO (0.9-2.4); AST(SGOT) 17 U/L (15-37); Alanine Aminotransfer ALT/SGPT 35 U/L (16-61); Alkaline Phosphatase 87 U/L (45-117); Anion Gap 8 (5-15); Calcium,Total 9.5 mg/dL (8.5-10.1); Chloride 101 mmol/L (98-107); Globulin 3.5 g/dL (2.2-4.2); PSA,Total - Annual Screen 0.46 ng/mL (0.00-4.00); Potassium 4.3 mmol/L (3.5-5.1); Sodium Level 134 mmol/L (136-145)
== END 2022-06-17 23:59 | disposition home or self-care (01) ==
PROVIDERS: PCP Family Medicine; Referring Provider Family Medicine; Visit Provider Family Medicine
DX: R73.02 Impaired glucose tolerance (oral) (principal); Z12.5 Encounter for screening for malignant neoplasm of prostate
CPT/HCPCS: 36415; 80053; 83036; 84153; G0103

== ENCOUNTER → 2022-06-23 | Outpatient (CLI) | payer SELFPAY | END | disposition home or self-care (01) | LOC: MFPLAB 14:40 | PROVIDERS: PCP Family Medicine; Visit Provider Family Medicine | DX: E11.9 Type 2 diabetes mellitus without complications (principal) | CPT/HCPCS: 36415 ==

== ENCOUNTER → 2022-09-23 | Outpatient (CLI) | payer SELFPAY ==
[2022-09-23 09:57] LABS: Absolute Lymphocyte Count 1.77 X10^3/uL (0.83-4.51); Absolute Neutrophil Count 3.5 X10^3/uL (2.0-7.7); Basophil# 0.09 X10^3/uL; Basophil% 1.4 % (0-1); Eosinophil# 0.36 X10^3/uL; Eosinophils% 5.7 % (0-5); Hematocrit 44.5 % (40-54); Hemoglobin 14.4 g/dL (13.0-16.5); Lymphocyte # 1.77 X10^3/ul (0.83-4.51); Mean Corp Hgb Conc 32.4 g/dL (32-36); Mean Corpuscular Hgb 29.8 pg (27.0-32.0); Mean Corpuscular Volume 91.9 fL (80-94); Monocyte% 9.5 % (0-10); NRBC Flagged by Analyzer 0 % (0-5); Neutrophil % 55.2 % (47-70); Platelet Count 188 K/mm3 (150-450); RBC Distribution Width CV 12.2 % (11.6-14.6); RBC Distribution Width SD 41.9 fl (35.1-43.9); Red Blood Count 4.84 M/mm3 (4.6-6.2); White Blood Count 6.3 K/mm3 (4.4-11.0)
[2022-09-23 10:20] LABS: ALB/GLOB Ratio 1.2 RATIO (0.9-2.4); AST(SGOT) 16 U/L (15-37); Alanine Aminotransfer ALT/SGPT 31 U/L (16-61); Alkaline Phosphatase 75 U/L (45-117); Anion Gap 5 (5-15); BUN 19 mg/dL (7-18); BUN/Creat Ratio 20.2 RATIO (10-20); Calcium,Total 9.1 mg/dL (8.5-10.1); Chloride 103 mmol/L (98-107); Cholesterol 169 mg/dL (200); Creatinine, Serum 0.94 mg/dL (0.70-1.30); EST Glomerular Filtration Rate 87 mL/min (>60); Est Glom Filt Rate - Afr Amer 106 mL/min (>60); Globulin 3.4 g/dL (2.2-4.2); Glucose 100 mg/dL (74-106); High Density Lipoprotein 39 mg/dL; Potassium 3.7 mmol/L (3.5-5.1); Protein, Total 7.4 g/dL (6.4-8.2); Sodium Level 139 mmol/L (136-145); Triglycerides 114 mg/dL; Very Low Density Lipoprotein 23 mg/dL (5-40)
[2022-09-23 10:32] LABS: Microalbumin:Creatinine Ratio 7.4 mg/g CRE (<30 mg/g CRE)
== END | disposition home or self-care (01) ==
PROVIDERS: PCP Family Medicine; Referring Provider Family Medicine; Visit Provider Family Medicine
DX: E11.9 Type 2 diabetes mellitus without complications (principal)
CPT/HCPCS: 36415; 80053; 80061; 82043; 82570; 83036; 85025

== ENCOUNTER → 2023-01-02 | Outpatient (CLI) | payer SELFPAY ==
[2023-01-02 10:00] LABS: Absolute Lymphocyte Count 1.68 X10^3/uL (0.83-4.51); Absolute Neutrophil Count 3.7 X10^3/uL (2.0-7.7); Basophil# 0.08 X10^3/uL; Basophil% 1.3 % (0-1); Eosinophil# 0.27 X10^3/uL; Eosinophils% 4.3 % (0-5); Hematocrit 45.8 % (40-54); Hemoglobin 14.6 g/dL (13.0-16.5); Lymphocyte # 1.68 X10^3/ul (0.83-4.51); Lymphocyte % 26.8 % (19-41); Mean Corp Hgb Conc 31.9 g/dL (32-36); Mean Corpuscular Hgb 28.9 pg (27.0-32.0); Mean Corpuscular Volume 90.5 fL (80-94); Mean Platelet Vol. 9.2 fl (6.2-12.0); Monocyte# 0.56 X10^3/uL; Monocyte% 8.9 % (0-10); NRBC Flagged by Analyzer 0 % (0-5); Neutrophil # 3.66 X10^3/uL (2.7-7.7); Neutrophil % 58.5 % (47-70); Platelet Count 224 K/mm3 (150-450); RBC Distribution Width SD 42.7 fl (35.1-43.9); Red Blood Count 5.06 M/mm3 (4.6-6.2); White Blood Count 6.3 K/mm3 (4.4-11.0)
[2023-01-02 10:17] LABS: Hemoglobin A1c 5.5 % (3.8-5.6)
[2023-01-02 10:31] LABS: AST(SGOT) 20 U/L (15-37); Alanine Aminotransfer ALT/SGPT 28 U/L (16-61); Albumin, Serum 3.9 g/dL (3.2-5.0); Alkaline Phosphatase 66 U/L (45-117); Anion Gap 5 (5-15); BUN 19 mg/dL (7-18); BUN/Creat Ratio 20.2 RATIO (10-20); Calcium,Total 9.2 mg/dL (8.5-10.1); Chloride 106 mmol/L (98-107); Cholesterol 155 mg/dL (200); Creatinine, Serum 0.94 mg/dL (0.70-1.30); EST Glomerular Filtration Rate 87 mL/min (>60); Est Glom Filt Rate - Afr Amer 106 mL/min (>60); Globulin 3.8 g/dL (2.2-4.2); Glucose 116 mg/dL (74-106); High Density Lipoprotein 38 mg/dL; Potassium 3.7 mmol/L (3.5-5.1); Protein, Total 7.7 g/dL (6.4-8.2); Sodium Level 141 mmol/L (136-145); Triglycerides 88 mg/dL; Very Low Density Lipoprotein 18 mg/dL (5-40)
[2023-01-02 14:27] LABS: AST(SGOT) 21 U/L (15-37); Alanine Aminotransfer ALT/SGPT 30 U/L (16-61); Albumin, Serum 3.7 g/dL (3.2-5.0); Alkaline Phosphatase 66 U/L (45-117); Bilirubin, Direct 0.15 mg/dL (0.00-0.30); Globulin 3.8 g/dL (2.2-4.2); Protein, Total 7.5 g/dL (6.4-8.2)
== END | disposition home or self-care (01) ==
PROVIDERS: Internal Medicine Cardiovascular Disease; PCP Family Medicine; Visit Provider Family Medicine
DX: E11.69 Type 2 diabetes mellitus with other specified complication (principal); E78.00 Pure hypercholesterolemia, unspecified
CPT/HCPCS: 36415; 80053; 80061; 80076; 83036; 85025

== ENCOUNTER → 2023-01-24 | Outpatient (CLI) | payer SELFPAY ==
--- NOTE | 2023-01-24 14:03 | ECHOD_ITS ---
Reason For Study: S/P VALVE REPAIR, HTN. Procedure This was a 2D Doppler, Color Flow transthoracic echocardiogram. The exam was of adequate technical quality. Exam performed in department. Left Ventricle Normal LV size. Left ventricular systolic function is normal. The estimated ejection fraction is 55 %. Stage 2 diastolic dysfunction. No regional wall motion abnormalities noted. Right Ventricle Normal RV size. Normal systolic function. Atria The left atrium is mildly enlarged. Normal right atrium. No doppler evidence for ASD. Mitral Valve An annuloplasty ring is noted in the mitral position. Trivial transvalvular insufficiency of the mitral valve. Tricuspid Valve Unable to estimate RV systolic pressure due to insufficient tricuspid regurgitant envelope. An annuloplasty ring is noted in the tricuspid position. Trivial transvalvular insufficiency of the tricuspid valve. Aortic Valve Trisinus/trileaflet aortic valve. Normal aortic valve. Pulmonic Valve Normal pulmonic valve. Trivial pulmonic valve insufficiency. Great Vessels Borderline enlarged aortic root. Pericardium/Pleural No pericardial effusion. MMode/2D Measurements & Calculations LVIDd: 4.8 cm IVSd: 0.99 cm Ao root diam: 3.9 cm LVIDs: 3.1 cm LVPWd: 1.0 cm RVDd: 3.6 cm FS: 35.0 % LAV(MOD-bp): 71.4 ml LA A4 area: 23.3 cm2 LA dimension(2D): 4.5 cm LAV(MOD-bp) Indexed: 36.2 ml/m2 LAV(MOD-sp2): 63.8 ml LAV(MOD-sp4): 77.8 ml RA A4 area: 16.2 cm2 Time Measurements MV dec time: 0.30 sec Doppler Measurements & Calculations MV E max cricket: 113.5 cm/sec Lat Peak E' Cricket: 8.5 cm/sec Med Peak E' Cricket: 6.1 cm/sec MV A max cricket: 124.2 cm/sec E/E' lat: 13.4 E/E' med: 18.6 MV E/A: 0.91 MV V2 max: 144.6 cm/sec MV P1/2t max cricket: 143.7 cm/sec Ao V2 max: 114.3 cm/sec MV max P.4 mmHg MV P1/2t: 77.9 msec Ao max P.2 mmHg MV V2 mean: 87.9 cm/sec MV dec slope: 540.6 cm/sec2 Ao V2 mean: 77.3 cm/sec MV mean P.5 mmHg Ao mean P.7 mmHg MV V2 VTI: 43.5 cm MVA(P1/2t): 2.8 cm2 Ao V2 VTI: 27.4 cm AV (velocity ratio): 0.72 LV V1 max: 95.3 cm/sec PA V2 max: 79.8 cm/sec LV V1 max P.6 mmHg LV V1 mean P.9 mmHg LV V1 mean: 65.5 cm/sec LV V1 VTI: 19.6 cm ECHO/Echo Complete Interpretation Summary Left ventricular systolic function is normal. The estimated ejection fraction is 55 %. The left atrium is mildly enlarged. An annuloplasty ring is noted in the mitral position. Trivial transvalvular insufficiency of the mitral valve. An annuloplasty ring is noted in the tricuspid position. Trivial transvalvular insufficiency of the tricuspid valve. Trivial pulmonic valve insufficiency. Borderline enlarged aortic root. Unable to estimate RV systolic pressure due to insufficient tricuspid regurgita nt envelope. Stage 2 diastolic dysfunction. Ordering Physician: Antelmo Valverde Referring Physician: Suhail Borges Performed By: Romina Holt, KIERA, RVT
== END | disposition home or self-care (01) ==
PROVIDERS: PCP Family Medicine; Visit Provider Internal Medicine Cardiovascular Disease
DX: I10 Essential (primary) hypertension (principal); Z98.890 Other specified postprocedural states
CPT/HCPCS: 93306

== ENCOUNTER → 2023-05-01 | Outpatient (CLI) | payer SELFPAY ==
[2023-05-01 10:12] LABS: Absolute Lymphocyte Count 1.65 X10^3/uL (0.83-4.51); Absolute Neutrophil Count 3.1 X10^3/uL (2.0-7.7); Basophil# 0.09 X10^3/uL; Basophil% 1.6 % (0-1); Eosinophil# 0.18 X10^3/uL; Eosinophils% 3.3 % (0-5); Hematocrit 45.7 % (40-54); Hemoglobin 14.7 g/dL (13.0-16.5); Lymphocyte # 1.65 X10^3/ul (0.83-4.51); Lymphocyte % 30.1 % (19-41); Mean Corp Hgb Conc 32.2 g/dL (32-36); Mean Corpuscular Hgb 29.4 pg (27.0-32.0); Mean Corpuscular Volume 91.4 fL (80-94); Mean Platelet Vol. 9.8 fl (6.2-12.0); Monocyte# 0.47 X10^3/uL; Monocyte% 8.6 % (0-10); NRBC Flagged by Analyzer 0 % (0-5); Neutrophil # 3.09 X10^3/uL (2.7-7.7); Neutrophil % 56.2 % (47-70); Platelet Count 181 K/mm3 (150-450); RBC Distribution Width CV 12.7 % (11.6-14.6); RBC Distribution Width SD 42.5 fl (35.1-43.9); White Blood Count 5.5 K/mm3 (4.4-11.0)
[2023-05-01 10:46] LABS: Microalbumin,Random Urine 15.6 mg/L (NO RANGE EST.); Microalbumin:Creatinine Ratio 20.2 mg/g CRE (<30 mg/g CRE)
[2023-05-01 10:47] LABS: ALB/GLOB Ratio 1.2 RATIO (0.9-2.4); AST(SGOT) 25 U/L (15-37); Alanine Aminotransfer ALT/SGPT 35 U/L (16-61); Albumin, Serum 4.2 g/dL (3.2-5.0); Alkaline Phosphatase 73 U/L (45-117); Anion Gap 8 (5-15); BUN 15 mg/dL (7-18); BUN/Creat Ratio 16.9 RATIO (10-20); Chloride 107 mmol/L (98-107); Cholesterol 165 mg/dL (200); Creatinine, Serum 0.88 mg/dL (0.70-1.30); EST Glomerular Filtration Rate 94 mL/min (>60); Est Glom Filt Rate - Afr Amer 113 mL/min (>60); Globulin 3.5 g/dL (2.2-4.2); Glucose 90 mg/dL (74-106); High Density Lipoprotein 41 mg/dL; Potassium 3.5 mmol/L (3.5-5.1); Protein, Total 7.7 g/dL (6.4-8.2); Sodium Level 141 mmol/L (136-145); Triglycerides 121 mg/dL; Very Low Density Lipoprotein 24 mg/dL (5-40)
[2023-05-01 10:52] LABS: Hemoglobin A1c 5.4 % (3.8-5.6)
== END | disposition home or self-care (01) ==
PROVIDERS: PCP Family Medicine; Visit Provider Family Medicine
DX: E11.9 Type 2 diabetes mellitus without complications (principal)
CPT/HCPCS: 36415; 80053; 80061; 82043; 82570; 83036; 85025

== ENCOUNTER → 2023-09-04 | Outpatient (CLI) | payer SELFPAY ==
[2023-09-04 12:17] LABS: Absolute Lymphocyte Count 1.71 X10^3/uL (0.83-4.51); Absolute Neutrophil Count 2.9 X10^3/uL (2.0-7.7); Basophil# 0.07 X10^3/uL; Basophil% 1.3 % (0-1); Eosinophil# 0.21 X10^3/uL; Eosinophils% 3.8 % (0-5); Hematocrit 45.2 % (40-54); Hemoglobin 14.5 g/dL (13.0-16.5); Lymphocyte # 1.71 X10^3/ul (0.83-4.51); Lymphocyte % 31.3 % (19-41); Mean Corp Hgb Conc 32.1 g/dL (32-36); Mean Corpuscular Hgb 29.4 pg (27.0-32.0); Mean Corpuscular Volume 91.5 fL (80-94); Mean Platelet Vol. 10.2 fl (6.2-12.0); Monocyte# 0.51 X10^3/uL; Monocyte% 9.3 % (0-10); NRBC Flagged by Analyzer 0 % (0-5); Neutrophil # 2.94 X10^3/uL (2.7-7.7); Neutrophil % 53.9 % (47-70); Platelet Count 180 K/mm3 (150-450); RBC Distribution Width CV 12.6 % (11.6-14.6); RBC Distribution Width SD 42.3 fl (35.1-43.9); Red Blood Count 4.94 M/mm3 (4.6-6.2); White Blood Count 5.5 K/mm3 (4.4-11.0)
[2023-09-04 12:41] LABS: Hemoglobin A1c 5.5 % (3.8-5.6)
[2023-09-04 12:45] LABS: ALB/GLOB Ratio 1.1 RATIO (0.9-2.4); AST(SGOT) 25 U/L (15-37); Alanine Aminotransfer ALT/SGPT 38 U/L (16-61); Albumin, Serum 3.9 g/dL (3.2-5.0); Alkaline Phosphatase 76 U/L (45-117); Anion Gap 5 (5-15); BUN 19 mg/dL (7-18); BUN/Creat Ratio 20.4 RATIO (10-20); Calcium,Total 8.8 mg/dL (8.5-10.1); Chloride 106 mmol/L (98-107); Cholesterol 173 mg/dL (200); Creatinine, Serum 0.93 mg/dL (0.70-1.30); EST Glomerular Filtration Rate 88 mL/min (>60); Est Glom Filt Rate - Afr Amer 107 mL/min (>60); Globulin 3.7 g/dL (2.2-4.2); Glucose 104 mg/dL (74-106); High Density Lipoprotein 42 mg/dL; PSA,Total - Annual Screen 0.44 ng/mL (0.00-4.00); Potassium 3.4 mmol/L (3.5-5.1); Protein, Total 7.6 g/dL (6.4-8.2); Sodium Level 140 mmol/L (136-145); Triglycerides 97 mg/dL; Very Low Density Lipoprotein 19 mg/dL (5-40)
== END | disposition home or self-care (01) ==
PROVIDERS: PCP Family Medicine; Visit Provider Family Medicine
DX: E11.69 Type 2 diabetes mellitus with other specified complication (principal); Z12.5 Encounter for screening for malignant neoplasm of prostate
CPT/HCPCS: 36415; 80053; 80061; 83036; 84153; 85025; G0103

== ENCOUNTER → 2024-02-29 | Outpatient (CLI) | payer SELFPAY ==
[2024-02-29 10:02] LABS: Absolute Lymphocyte Count 1.86 X10^3/uL (0.83-4.51); Absolute Neutrophil Count 3.6 X10^3/uL (2.0-7.7); Basophil# 0.08 X10^3/uL; Basophil% 1.3 % (0-1); Eosinophil# 0.18 X10^3/uL; Eosinophils% 2.8 % (0-5); Hematocrit 46.3 % (40-54); Lymphocyte # 1.86 X10^3/ul (0.83-4.51); Lymphocyte % 29.4 % (19-41); Mean Corp Hgb Conc 32.4 g/dL (32-36); Mean Corpuscular Hgb 28.8 pg (27.0-32.0); Mean Corpuscular Volume 88.9 fL (80-94); Monocyte% 9.5 % (0-10); NRBC Flagged by Analyzer 0 % (0-5); Neutrophil # 3.59 X10^3/uL (2.7-7.7); Neutrophil % 56.7 % (47-70); Platelet Count 178 K/mm3 (150-450); RBC Distribution Width CV 12.7 % (11.6-14.6); RBC Distribution Width SD 41.6 fl (35.1-43.9); Red Blood Count 5.21 M/mm3 (4.6-6.2); White Blood Count 6.3 K/mm3 (4.4-11.0)
[2024-02-29 11:00] LABS: ALB/GLOB Ratio 1.2 RATIO (0.9-2.4); AST(SGOT) 26 U/L (15-37); Alanine Aminotransfer ALT/SGPT 47 U/L (16-61); Albumin, Serum 4.1 g/dL (3.2-5.0); Alkaline Phosphatase 69 U/L (45-117); Anion Gap 3 (5-15); BUN 16 mg/dL (7-18); BUN/Creat Ratio 18.6 RATIO (10-20); Calcium,Total 9.7 mg/dL (8.5-10.1); Chloride 107 mmol/L (98-107); Cholesterol 152 mg/dL (200); Creatinine, Serum 0.86 mg/dL (0.70-1.30); EST Glomerular Filtration Rate 96 mL/min (>60); Est Glom Filt Rate - Afr Amer 117 mL/min (>60); Globulin 3.4 g/dL (2.2-4.2); Glucose 98 mg/dL (74-106); High Density Lipoprotein 50 mg/dL; Potassium 3.7 mmol/L (3.5-5.1); Protein, Total 7.5 g/dL (6.4-8.2); Sodium Level 141 mmol/L (136-145); Triglycerides 86 mg/dL; Very Low Density Lipoprotein 17 mg/dL (5-40)
[2024-02-29 12:51] LABS: Hemoglobin A1c 5.6 % (3.8-5.6)
== END | disposition home or self-care (01) ==
PROVIDERS: PCP Family Medicine; Visit Provider Family Medicine
DX: E11.9 Type 2 diabetes mellitus without complications (principal)
CPT/HCPCS: 36415; 80053; 80061; 83036; 85025

== ENCOUNTER → 2024-08-28 | Outpatient (CLI) | payer SELFPAY ==
[2024-08-28 10:20] LABS: Absolute Lymphocyte Count 1.86 X10^3/uL (0.83-4.51); Absolute Neutrophil Count 3.3 X10^3/uL (2.0-7.7); Basophil% 1.6 % (0-1); Eosinophil# 0.23 X10^3/uL; Eosinophils% 3.7 % (0-5); Hematocrit 46.4 % (40-54); Hemoglobin 14.8 g/dL (13.0-16.5); Lymphocyte # 1.86 X10^3/ul (0.83-4.51); Lymphocyte % 30.2 % (19-41); Mean Corp Hgb Conc 31.9 g/dL (32-36); Mean Corpuscular Hgb 28.5 pg (27.0-32.0); Mean Corpuscular Volume 89.2 fL (80-94); Mean Platelet Vol. 9.9 fl (6.2-12.0); Monocyte# 0.66 X10^3/uL; Monocyte% 10.7 % (0-10); NRBC Flagged by Analyzer 0 % (0-5); Neutrophil # 3.28 X10^3/uL (2.7-7.7); Neutrophil % 53.5 % (47-70); Platelet Count 177 K/mm3 (150-450); RBC Distribution Width CV 12.8 % (11.6-14.6); RBC Distribution Width SD 41.7 fl (35.1-43.9); White Blood Count 6.2 K/mm3 (4.4-11.0)
[2024-08-28 11:34] LABS: Microalbumin,Random Urine 14.1 mg/L (NO RANGE EST.); Microalbumin:Creatinine Ratio 10.1 mg/g CRE (<30 mg/g CRE)
[2024-08-28 12:17] LABS: Hemoglobin A1c 5.6 % (3.8-5.6)
[2024-08-28 14:04] LABS: ALB/GLOB Ratio 1.1 RATIO (0.9-2.4); AST(SGOT) 25 U/L (15-37); Alanine Aminotransfer ALT/SGPT 38 U/L (16-61); Alkaline Phosphatase 76 U/L (45-117); Anion Gap 8 (5-15); BUN 16 mg/dL (7-18); BUN/Creat Ratio 16.9 RATIO (10-20); Calcium,Total 9.3 mg/dL (8.5-10.1); Chloride 106 mmol/L (98-107); Cholesterol 163 mg/dL (200); Creatinine, Serum 0.94 mg/dL (0.70-1.30); EST Glomerular Filtration Rate 87 mL/min (>60); Est Glom Filt Rate - Afr Amer 105 mL/min (>60); Globulin 3.6 g/dL (2.2-4.2); Glucose 104 mg/dL (74-106); High Density Lipoprotein 48 mg/dL; Potassium 3.9 mmol/L (3.5-5.1); Protein, Total 7.6 g/dL (6.4-8.2); Sodium Level 141 mmol/L (136-145); Triglycerides 87 mg/dL; Very Low Density Lipoprotein 17 mg/dL (5-40)
== END | disposition home or self-care (01) ==
PROVIDERS: PCP Family Medicine; Visit Provider Family Medicine
DX: E11.9 Type 2 diabetes mellitus without complications (principal); Z12.5 Encounter for screening for malignant neoplasm of prostate
CPT/HCPCS: 36415; 80053; 80061; 82043; 82570; 83036; 84443; 85025

== ENCOUNTER → 2025-03-07 | Outpatient (CLI) | payer SELFPAY ==
[2025-03-07 15:23] LABS: Hematocrit 44.4 % (40-54); Hemoglobin 14.6 g/dL (13.0-16.5); Mean Corp Hgb Conc 32.9 g/dL (32-36); Mean Corpuscular Hgb 29.3 pg (27.0-32.0); Mean Corpuscular Volume 89.2 fL (80-94); Mean Platelet Vol. 9.9 fl (6.2-12.0); Platelet Count 180 K/mm3 (150-450); RBC Distribution Width CV 12.9 % (11.6-14.6); RBC Distribution Width SD 42.2 fl (35.1-43.9); Red Blood Count 4.98 M/mm3 (4.6-6.2); White Blood Count 5.6 K/mm3 (4.4-11.0)
[2025-03-07 16:09] LABS: ALB/GLOB Ratio 1.6 RATIO (0.9-2.4); AST(SGOT) 31 U/L (<=37); Alanine Aminotransfer ALT/SGPT 40 U/L (<=46); Albumin, Serum 4.4 g/dL (3.4-4.8); Alkaline Phosphatase 77 U/L (40-129); Anion Gap 10 (5-15); BUN 17 mg/dL (4-19); BUN/Creat Ratio 16.7 RATIO (10-20); Calcium,Total 9.4 mg/dL (7.6-11.0); Carbon Dioxide 26.2 mmol/L (21.0-32.0); Chloride 102 mmol/L (98-108); Cholesterol 155 mg/dL (<=200); Creatinine, Serum 1.02 mg/dL (0.70-1.20); EST Glomerular Filtration Rate 84 (>60); Globulin 2.8 g/dL (2.2-4.2); Glucose 115 mg/dL (70-99); High Density Lipoprotein 41 mg/dL; Low Density Lipoprotein Calc. 96 mg/dL; PSA,Total - Annual Screen 0.55 ng/mL (0.02-4.00); Potassium 3.8 mmol/L (3.3-5.1); Protein, Total 7.1 g/dL (5.9-8.4); Sodium Level 139 mmol/L (133-145); Total Bilirubin 1.19 mg/dL (0.00-1.30); Triglycerides 93 mg/dL; Very Low Density Lipoprotein 19 mg/dL (5-40); cholesterol:hdl ratio screen 3.81
[2025-03-07 16:37] LABS: Hemoglobin A1c 5.9 % (<=5.6)
== END | disposition home or self-care (01) ==
PROVIDERS: PCP Family Medicine; Referring Provider Family Medicine; Visit Provider Family Medicine
DX: E11.69 Type 2 diabetes mellitus with other specified complication (principal); Z12.5 Encounter for screening for malignant neoplasm of prostate
CPT/HCPCS: 36415; 80053; 80061; 83036; 84153; 85027; G0103

== ENCOUNTER → 2025-07-03 | Outpatient (CLI) | payer SELFPAY ==
[2025-07-03 10:31] LABS: Hematocrit 46.3 % (40-54); Hemoglobin 15.3 g/dL (13.0-16.5); Immature Granulocytes Count 0.010 X10^3/uL (0.0-0.0); Mean Corp Hgb Conc 33.0 g/dL (32-36); Mean Corpuscular Volume 89.2 fL (80-94); Mean Platelet Vol. 9.9 fl (6.2-12.0); NRBC Flagged by Analyzer 0 % (0-5); Platelet Count 181 K/mm3 (150-450); RBC Distribution Width CV 12.8 % (11.6-14.6); RBC Distribution Width SD 42.2 fl (35.1-43.9); Red Blood Count 5.19 M/mm3 (4.6-6.2); White Blood Count 6.0 K/mm3 (4.4-11.0)
[2025-07-03 10:42] LABS: AST(SGOT) 26 U/L (<=37); Alanine Aminotransfer ALT/SGPT 32 U/L (<=46); Albumin, Serum 4.5 g/dL (3.4-4.8); Alkaline Phosphatase 80 U/L (40-129); Anion Gap 9 (5-15); BUN 14 mg/dL (4-19); BUN/Creat Ratio 13.1 RATIO (10-20); Calcium,Total 10.0 mg/dL (7.6-11.0); Carbon Dioxide 29.6 mmol/L (21.0-32.0); Chloride 104 mmol/L (98-108); Globulin 2.8 g/dL (2.2-4.2); Glucose 123 mg/dL (70-99); Potassium 4.4 mmol/L (3.3-5.1)
== END | disposition home or self-care (01) ==
PROVIDERS: PCP Family Medicine; Visit Provider Family Medicine
DX: E11.8 Type 2 diabetes mellitus with unspecified complications (principal)
CPT/HCPCS: 36415; 80053; 83036; 85025

== ENCOUNTER → 2025-09-19 | Outpatient (CLI) | payer SELFPAY ==
[2025-09-19 17:49] LABS: Hematocrit 47.3 % (40-54); Hemoglobin 15.5 g/dL (13.0-16.5); Immature Granulocytes Count 0.010 X10^3/uL (0.0-0.0); Mean Corp Hgb Conc 32.8 g/dL (32-36); Mean Corpuscular Volume 88.2 fL (80-94); Mean Platelet Vol. 10.1 fl (6.2-12.0); NRBC Flagged by Analyzer 0 % (0-5); Platelet Count 227 K/mm3 (150-450); RBC Distribution Width CV 12.6 % (11.6-14.6); RBC Distribution Width SD 41.0 fl (35.1-43.9); Red Blood Count 5.36 M/mm3 (4.6-6.2); White Blood Count 5.9 K/mm3 (4.4-11.0)
[2025-09-19 18:03] LABS: AST(SGOT) 29 U/L (<=37); Alanine Aminotransfer ALT/SGPT 40 U/L (<=46); Albumin, Serum 4.7 g/dL (3.4-4.8); Alkaline Phosphatase 77 U/L (40-129); Anion Gap 11 (5-15); BUN 16 mg/dL (4-19); BUN/Creat Ratio 17.1 RATIO (10-20); Calcium,Total 10.1 mg/dL (7.6-11.0); Carbon Dioxide 28.5 mmol/L (21.0-32.0); Chloride 100 mmol/L (98-108); Globulin 3.2 g/dL (2.2-4.2); Glucose 106 mg/dL (70-99); Potassium 3.8 mmol/L (3.3-5.1)
== END | disposition home or self-care (01) ==
PROVIDERS: PCP Family Medicine; Visit Provider Family Medicine
DX: E11.8 Type 2 diabetes mellitus with unspecified complications (principal)
CPT/HCPCS: 36415; 80053; 83036; 85025